=== PATIENT | male | born 1960 | race Caucasian/White ===

== ENCOUNTER 2020-06-07 11:22 | Outpatient (REF) | payer OTHER, SELFPAY ==
[2020-06-07 11:50] LABS: MANUAL DIFF FLAG NO
[2020-06-07 11:54] LABS: Basophils Percent Auto 0.5 % (0-2); Eosinophils Percent Auto 0.3 % (0-4); Hematocrit 48.4 % (42-52); Hemoglobin 16.3 g/dl (14.0-18.0); Imm Gran Abs Auto 0.02 X10*3/uL (0.00-0.03); Imm Gran Pct Auto 0.3 % (0.0-0.4); Lymphocytes Absolute Auto 2.1 X10*3/uL (1.2-4.9); Lymphocytes Percent Auto 34.2 % (20-40); Mean Corpuscular HGB Conc 33.7 g/dl (31.0-36.0); Mean Corpuscular Hemoglobin 30.5 pg (27.0-33.0); Mean Corpuscular Volume 90.6 fL (80-98); Mean Platelet Volume 10.3 fL (9.4-12.4); Monocytes Absolute Auto 0.5 X10*3/uL (0.1-1.2); Monocytes Percent Auto 7.4 % (2-11); Neutrophils Absolute Auto 3.5 X10*3/uL (2.0-8.3); Neutrophils Percent Auto 57.3 % (45-73); Platelet Count 179 X10*3/uL (160-400); Red Blood Count 5.34 X10*6/uL (4.60-5.80); Red Cell Distribution Width 11.9 % (11.0-16.0); White Blood Count 6.1 X10*3/uL (4.8-10.8)
[2020-06-07 12:18] LABS: Glucose Urine UA NEG (NEG); Leukocyte Esterase Urine NEG (NEG); Nitrite Urine NEG (NEG); Specific Gravity - Urine 1.025 (1.005-1.025); Urine Blood NEG (NEG); Urine Ketones NEG (NEG); Urine Protein TRACE MG/DL (NEG-TRACE)
[2020-06-07 12:19] LABS: Appearance Urine CLEAR; Color Urine YELLOW
[2020-06-07 12:24] LABS: RBC Urine 0 /HPF (0); Squamous Epithelial Cell Urine 1+ /LPF; WBC Urine 0 /HPF (0-4)
[2020-06-07 12:28] LABS: Alanine Aminotransferase 57 U/L (0-40); Albumin Level 4.6 g/dL (3.5-5.0); Alkaline Phosphatase 61 U/L (39-117); Anion Gap 11 (12-20); Aspartate Amino Transferase 32 U/L (5-37); Bilirubin Total 0.9 mg/dL (0.0-1.0); Blood Urea Nitrogen 24 mg/dL (9-16); Calcium 9.4 mg/dL (8.4-10.2); Carbon Dioxide 30 mmol/L (22-29); Chloride 105 mmol/L (96-108); Cholesterol 189 mg/dL; Estimated Glomerular Filt Rate > 60; Glucose Random 89 mg/dL (60-115); HDL Cholesterol 57 mg/dL; LDL Cholesterol Calculated 117 mg/dl; Potassium 5.2 mmol/l (3.3-5.1); Sodium 141 mmol/L (135-145); Total Protein 7.6 g/dL (6.5-8.0); Triglycerides 75 mg/dL
[2020-06-07 12:30] LABS: Estimated Average Glucose 100 mg/dL; Hemoglobin A1c % 5.1 %
[2020-06-07 12:49] LABS: Free T4 (Free Thyroxine) 1.08 ng/dL (0.71-1.85); Prostate Specific Antigen Scr 1.77 ng/mL (<0.05-4.0); Thyroid Stimulating Hormone 0.45 uIU/mL (0.32-4.0)
[2020-06-07 13:06] LABS: Folate 11.9 ng/mL (> or = 4.0); Vitamin B12 530 pg/mL (200-900)
== END 2020-06-07 11:23 | disposition home or self-care (01) ==
LOC: HO.LAB 11:22
PROVIDERS: PCP Internal Medicine; Visit Provider Internal Medicine
DX: I47.1 Supraventricular tachycardia (principal); E78.00 Pure hypercholesterolemia, unspecified
CPT/HCPCS: 36415; 80053; 80061; 81001; 82607; 82746; 83036; 84153; 84439; 84443; 85025

== ENCOUNTER → 2021-03-15 10:14 | Outpatient (BNVA) | payer OTHER, SELFPAY | PROVIDERS: PCP Internal Medicine; Referring Provider Internal Medicine; Visit Provider Internal Medicine Cardiovascular Disease | DX: R00.2 Palpitations (principal) | CPT/HCPCS: 93005; 99212 ==

== ENCOUNTER 2021-05-29 14:04 | Outpatient (REF) | payer OTHER, SELFPAY ==
[2021-05-29 14:31] LABS: MANUAL DIFF FLAG NO
[2021-05-29 15:16] LABS: Basophils Percent Auto 0.5 % (0-2); Eosinophils Absolute Auto 0.1 X10*3/uL (0.0-0.4); Eosinophils Percent Auto 0.9 % (0-4); Hematocrit 48.2 % (42.0-52.0); Hemoglobin 16.3 g/dl (14.0-18.0); Imm Gran Abs Auto 0.02 X10*3/uL (0.00-0.03); Imm Gran Pct Auto 0.3 % (0.0-0.4); Lymphocytes Absolute Auto 2.2 X10*3/uL (1.2-4.9); Lymphocytes Percent Auto 34.2 % (20-40); Mean Corpuscular HGB Conc 33.8 g/dl (31.0-36.0); Mean Corpuscular Hemoglobin 30.4 pg (27.0-33.0); Mean Corpuscular Volume 89.8 fL (80.0-98.0); Mean Platelet Volume 10.5 fL (9.4-12.4); Monocytes Absolute Auto 0.4 X10*3/uL (0.1-1.2); Monocytes Percent Auto 6.8 % (2-11); Neutrophils Absolute Auto 3.7 x10*3/uL (2.0-8.3); Neutrophils Percent Auto 57.3 % (45-73); Platelet Count 192 X10*3/uL (160-400); Red Blood Count 5.37 X10*6/uL (4.60-5.80); Red Cell Distribution Width 11.8 % (11.0-16.0); White Blood Count 6.5 X10*3/uL (4.8-10.8)
[2021-05-29 15:39] LABS: Alanine Aminotransferase 32 U/L (0-40); Albumin Level 4.4 g/dL (3.5-5.0); Alkaline Phosphatase 67 U/L (39-117); Anion Gap 13 (12-20); Aspartate Amino Transferase 22 U/L (5-37); Bilirubin Total 0.7 mg/dL (0.0-1.0); Blood Urea Nitrogen 19 mg/dL (9-16); Calcium 9.5 mg/dL (8.4-10.2); Carbon Dioxide 26 mmol/L (22-29); Chloride 106 mmol/L (96-108); Cholesterol 163 mg/dL; Estimated Glomerular Filt Rate > 60; Glucose Random 78 mg/dL (60-115); HDL Cholesterol 47 mg/dL; LDL Cholesterol Calculated 100 mg/dl; Potassium 4.4 mmol/L (3.3-5.1); Sodium 141 mmol/L (135-145); Total Protein 7.3 g/dL (6.5-8.0); Triglycerides 81 mg/dL
[2021-05-29 16:02] LABS: Free T4 (Free Thyroxine) 1.23 ng/dL (0.71-1.85); Prostate Specific Antigen Scr 2.78 ng/mL (<0.05-4.0); Thyroid Stimulating Hormone 0.55 uIU/mL (0.32-4.0)
[2021-05-29 16:13] LABS: Folate 13.6 ng/mL (> or = 4.0); Vitamin B12 422 pg/mL (200-900)
== END 2021-05-29 14:05 | disposition home or self-care (01) ==
LOC: HO.LAB 14:04
PROVIDERS: PCP Internal Medicine; Visit Provider Internal Medicine
DX: E78.00 Pure hypercholesterolemia, unspecified (principal)
CPT/HCPCS: 36415; 80053; 80061; 82607; 82746; 84153; 84439; 84443; 85025

== ENCOUNTER 2021-06-18 11:15 | Day surgery (SDC) | payer OTHER, SELFPAY ==
[2021-06-12 12:56] VITALS: BMI 29.7
--- NOTE | 2021-06-15 08:44 | HO.ANESPROP2 ---
Documented by User: Supriya Diaz NP 06/15/21 08:48 HPI - Anesthesia Eval Consult details Narrative: 60yo M Upper Endoscopy Follows cardiol yearly for palps - likely PVCs per Dr Fernando 03/2021 visit. No further work up. [facility] Active Problems Active Problems: All Active Problems (Updated 06/12/21 @ 12:48 by Emeli Daniel RN) Annual physical exam (Acute) SVT (supraventricular tachycardia) (Acute) Knee pain, left (Acute) Lip lesion (Acute) Palpitations (Acute) Annual physical exam (Acute) Overweight (Acute) Obesity (BMI 30-39.9) (Acute) Hypercholesterolemia (Acute) Anxiety (Acute) GERD (gastroesophageal reflux disease) (Acute) Barretts esophagus (Acute) Past Medical History Medical History Anxiety Barretts esophagus GERD (gastroesophageal reflux disease) Hypercholesterolemia Obesity (BMI 30-39.9) Palpitations Family History Family History Father No problems noted. Mother Colon cancer Sister Leukemia Brother Stomach cancer Surgical History Surgical History History of arthroscopy of left knee History of esophagogastroduodenoscopy (EGD) History of eye surgery History of umbilical hernia repair Hx of colonoscopy Social History Social History Housing: House Alcohol intake: current Patient Tobacco Use Status: Never used Tobacco e-Cigarette/Vaping Use: Never Used Second Hand Smoke Exposure: No Are you DNR?: No Advance Directives: No Advance Directives Information Provided: No Advance Directives on File: No Current occupational status: employed Meds Allergies Allergy/AdvReac Type Severity Reaction Status Date / Time No Known Allergies Allergy Verified 06/12/21 12:49 Home Medications Medication Instructions Recorded Confirmed Last Taken Type cholecalciferol (vitamin D3) 25 25 mcg PO DAILY 06/05/20 06/12/21 Unknown History mcg (1,000 unit) capsule omeprazole 20 mg capsule,delayed 20 mg PO BID cap 06/06/21 06/18/21 06/18/21 07:30 History release Exam Exam Date and Time: June 15, 2021 0844 Height,Weight and Vital Signs: Height 6 ft Weight 99.337 kg Pertinent Lab Results Pertinent Lab Results: Laboratory Tests 05/29/21 05/29/21 14:29 14:29 WBC 6.5 Hgb 16.3 Hct 48.2 Plt Count 192 Sodium 141 Potassium 4.4 Chloride 106 Carbon Dioxide 26 BUN 19 H Creatinine 1.07 Narrative Narrative: EKG 03/2021 normal sinus rhythm with incomplete right bundle-branch block with left axis deviation with isolated Q-waves in lead 3 due to body habitus Assessment and Plan Assessment Anesthesia Assessment: Chart Reviewed Documented by User: Jessica Garcia MD 06/18/21 12:55 PMFSH Past Medical History Medical History Anxiety Barretts esophagus GERD (gastroesophageal reflux disease) Hypercholesterolemia Obesity (BMI 30-39.9) Palpitations Family History Family History Father No problems noted. Mother Colon cancer Sister Leukemia Brother Stomach cancer Family history of problems with anesthesia: No Surgical History Surgical History History of arthroscopy of left knee History of esophagogastroduodenoscopy (EGD) History of eye surgery History of umbilical hernia repair Hx of colonoscopy History of Problems with Anesthesia: No Social History Social History Housing: House Alcohol intake: current Patient Tobacco Use Status: Never used Tobacco e-Cigarette/Vaping Use: Never Used Second Hand Smoke Exposure: No Are you DNR?: No Advance Directives: No Advance Directives Information Provided: No Advance Directives on File: No Current occupational status: employed Meds Allergies Allergy/AdvReac Type Severity Reaction Status Date / Time No Known Allergies Allergy Verified 06/12/21 12:49 Home Medications Medication Instructions Recorded Confirmed Last Taken Type cholecalciferol (vitamin D3) 25 25 mcg PO DAILY 06/05/20 06/12/21 Unknown History mcg (1,000 unit) capsule omeprazole 20 mg capsule,delayed 20 mg PO BID cap 06/06/21 06/18/21 06/18/21 07:30 History release Exam Height,Weight and Vital Signs: Height 6 ft Weight 99.337 kg Vital Signs Temp Pulse Resp BP Pulse Ox 06/18/21 11:50 97.6 F 62 16 118/85 97 Airway Mallampati Class: I TM Dist: >3cm Neck ROM: Full Loose/Missing/Broken Teeth: No Heart: RRR Lungs: CTAB Assessment and Plan Assessment Anesthesia Assessment: Anesthesia Plan Discussed Final Anesthetic Review Family History of Problems with Anesthesia: No History of Problems with Anesthesia: No NPO: Yes ASA Class: II Final Preanesthetic Review: No Changes in Pt Med Stat, Meds/Allgs Chart Reviewed, Consent Obtained/Reviewed and Anes Risks/Benef Reviewed Patient Risk: Low Procedure Risk: Low Assessment/Block/Sedation in SS: Assess/Block/Sedation-SS Anesthetic Plan Anesthetic Plan: MAC: Disposition: Standard PACU
[2021-06-18 11:50] VITALS: BP 118/85; PULSE 62; RESP 16; TEMP 36.4; O2SAT 97
[2021-06-18] MEDS: Lactated Ringers 1,000 ML 100 ML IVCONT (11:53)
[2021-06-18 13:37] VITALS: BP 101/64; PULSE 54; RESP 16; TEMP 36.4; O2SAT 96
--- NOTE | 2021-06-18 13:38 | PM.OP ---
Brief Operative Note Date of Service: 06/18/21 Pre-op diagnosis: GERD, Lo's Post-op diagnosis: other (Same, Hiatal hernia) Procedure: EGD with biopsies Surgeon: Josué Borges Anesthesia: MAC Was an Publisher Assistant used for this Procedure?: No Estimated blood loss (mL): 2.0 Pathology: other (A. EG Junction at 38cm) Condition: stable Disposition: PACU
[2021-06-18 13:59] VITALS: BP 104/68; PULSE 50; RESP 16; TEMP 36.4; O2SAT 96
--- NOTE | 2021-06-18 14:58 | OP_ITS ---
SURGEON: Josué Borges MD INDICATIONS: The patient presents for followup of gastroesophageal reflux, Lo's esophagus, and some increasing indigestion. Full consent has been obtained from him for this, including risks of bleeding and perforation. PREOPERATIVE DIAGNOSIS: POSTOPERATIVE DIAGNOSIS: PROCEDURE PERFORMED: Esophagogastroduodenoscopy with biopsies. ESTIMATED BLOOD LOSS: COMPLICATIONS: ANESTHESIA: Monitored anesthesia care. ASSISTANTS: SPECIMENS: PREOPERATIVE DIAGNOSES: Gastroesophageal reflux, Lo's esophagus, and increasing indigestion. POSTOPERATIVE DIAGNOSES: Gastroesophageal reflux, Lo's esophagus, and increasing indigestion, hiatal hernia. DESCRIPTION OF PROCEDURE: The patient was placed in left lateral decubitus position. The Olympus video gastroscope was passed in the posterior oropharynx and upper esophagus under direct vision. The scope was passed slowly into the distal esophagus. The gastroesophageal junction appeared at 38 cm. This area was notable for some small, less than 1 cm areas of irregularity consistent with Lo's mucosa. There was no esophagitis, ulceration, nor mass. The scope entered into the stomach. There was a small hiatal hernia. The scope was advanced to pylorus and the duodenum was cannulated to the descending portion. The duodenum including the bulb appeared normal without mass or ulceration. Scope was withdrawn back into the stomach. The gastric antrum and body appeared normal with good peristalsis. The scope was retroflexed visualizing the proximal stomach carefully which appeared normal, without any sign of mass or ulceration. Scope was straightened out and withdrawn back to the esophagus. Biopsies were obtained at the EG junction at 38 cm in the area of probable Lo's mucosa. Proximal to this, the esophageal mucosa appeared normal. The scope was withdrawn from the patient. He tolerated the procedure well and was returned to recovery area in stable condition. IMPRESSION: 1. Hiatal hernia. 2. History of Lo's esophagus. PLAN: The results of biopsies will be checked. He does report that he has been using omeprazole 20 mg twice a day fairly regularly and this has been working better for him. He is scheduled for an abdominal ultrasound later this month to rule out any symptomatic gallstones or any other issues that would be causing his increasing upper GI complaints. Depending upon those results and his clinical course, we may need to consider hiatal hernia surgery. If that is the case, he would need esophageal motility studies and pH studies. He will be due for followup colonoscopy in 2022, and I would recommend a followup endoscopy in 3 years as long as there is no dysplasia on today's biopsies. He will be given a followup appointment to see me as well. MD MAYTE Lozano/TAMANNA / [id number]
== END 2021-06-18 14:41 | disposition home or self-care (01) ==
PROVIDERS: PCP Internal Medicine; Visit Provider Internal Medicine
PROC: 0DJ08ZZ Inspection of Upper Intestinal Tract, Via Natural or Artificial Opening Endoscopic (ICD-10-PCS; CPT 43235; principal; 2021-06-18 12:30)
DX: K22.70 Barrett's esophagus without dysplasia (principal); K21.9 Gastro-esophageal reflux disease without esophagitis; K44.9 Diaphragmatic hernia without obstruction or gangrene; K30 Functional dyspepsia; Z80.0 Family history of malignant neoplasm of digestive organs; E78.5 Hyperlipidemia, unspecified; Z79.899 Other long term (current) drug therapy
CPT/HCPCS: 43239; 88305; J2405

== ENCOUNTER 2021-06-21 10:28 | Outpatient (REF) | payer OTHER, SELFPAY ==
--- NOTE | ~2021-06-21 | US_ITS ---
EXAMINATION: US ABDOMEN COMPLETE CLINICAL INFORMATION: Abdominal discomfort, epigastric. COMPARISON: Ultrasound abdomen 10/29/2011. TECHNIQUE: Real-time imaging of the abdominal viscera. FINDINGS: PANCREAS: The pancreatic head and body were unremarkable. The tail region was obscured by bowel gas. ABDOMINAL AORTA: The proximal, mid, and distal segments are normal in caliber. INFERIOR VENA CAVA: Visualized portions are normal. LIVER: The liver is normal in size. The liver contour is normal. Parenchymal echogenicity is normal. There is a tiny hyperechoic mass in the right lower lobe measuring 0.7 x 0.5 x 0.6 cm. No abnormal Doppler signal within this lesion. There is no intrahepatic biliary duct dilatation seen. GALLBLADDER: Normal. The gallbladder is physiologically distended without evidence of stones, sludge, polyps, wall thickening or pericholecystic fluid. COMMON BILE DUCT: Normal in caliber measuring 0.4 cm in diameter. RIGHT KIDNEY: Normal. No hydronephrosis. No renal calculi or focal parenchymal lesions. The kidney measures 10.3 cm in maximum dimension. LEFT KIDNEY: Normal. No hydronephrosis. No renal calculi or focal parenchymal lesions. The kidney measures 12.0 cm in maximum dimension. SPLEEN: Normal. The spleen measures 12.7 cm in maximum dimension. FREE FLUID: None. US/US abdomen complete IMPRESSION: 1. No acute sonographic findings within the abdomen. 2. Subcentimeter hyperechoic mass within the right lobe of the liver, nonspecific. Statistically this most likely represent a small hemangioma but the imaging is nondiagnostic. Due to the small size, diagnostic imaging will be limited. If clinically appropriate, consider sonographic follow-up, reserving liver MRI for problem solving.
== END 2021-06-21 10:29 | disposition home or self-care (01) ==
LOC: HO.US 10:28
PROVIDERS: PCP Internal Medicine; Visit Provider Internal Medicine
DX: R10.13 Epigastric pain (principal)
CPT/HCPCS: 76700

== ENCOUNTER → 2021-09-21 08:01 | Outpatient (REF) | payer OTHER, SELFPAY ==
--- NOTE | 2021-09-21 08:06 | CA_ITS ---
Acquisition Time: 2021-09-21 08:16:04 Total Exercise Time: 00:10:00 Test Indications: SVT Medications: SEE CHART Protocol: JAMES Max HR: 169 BPM 104% of Pred: 161 BPM Max BP: 138/070 mmHG Max Work Load: 11.8 METS Exercise stress test with exercise 10 min of James protocol, achieving 100% MPHR, 11.7 METs, with mild sob, no chest discomfort, with isolated PAC and PVCs, with normotensive response to exercise, without EKG changes meeting criteria for ischemia. Test reviewed with Dr Goff. Referred By: Sajan Fernando Overread By: SHAHLA HAWKINS
== END ==
LOC: HO.CARD 08:01
PROVIDERS: Visit Provider Internal Medicine Cardiovascular Disease
DX: Z01.818 Encounter for other preprocedural examination (principal); I47.1 Supraventricular tachycardia
CPT/HCPCS: 93017

== ENCOUNTER 2022-01-09 07:55 | Outpatient (REF) | payer OTHER, SELFPAY ==
--- NOTE | ~2022-01-09 | US_ITS ---
EXAMINATION: US ABDOMEN COMPLETE CLINICAL INFORMATION: Abnormal liver ultrasound. COMPARISON: Ultrasound abdomen 06/21/2021 and 10/29/2011. TECHNIQUE: Real-time imaging of the abdominal viscera. FINDINGS: PANCREAS: Normal. ABDOMINAL AORTA: The proximal, mid, and distal segments are normal in caliber. INFERIOR VENA CAVA: Visualized portions are normal. LIVER: The liver is normal in size. The liver contour is normal. There is a focal area of increased echogenicity right lower lobe measuring 0.5 x 0.5 x 0.5 cm likely a small hemangioma. The left lower lobe is not seen No focal hepatic lesion. There is no intrahepatic biliary duct dilatation seen. GALLBLADDER: Normal. The gallbladder is physiologically distended without evidence of stones, sludge, polyps, wall thickening or pericholecystic fluid. COMMON BILE DUCT: Normal in caliber measuring 0.3 cm in diameter. RIGHT KIDNEY: Normal. No hydronephrosis. No renal calculi or focal parenchymal lesions. The kidney measures 10.8 cm in maximum dimension. LEFT KIDNEY: Normal. No hydronephrosis. No renal calculi or focal parenchymal lesions. The kidney measures 10.8 cm in maximum dimension. SPLEEN: Normal. The spleen measures 11.3 cm in maximum dimension. FREE FLUID: None. US/US abdomen complete IMPRESSION: Suspect small right hepatic lobe hemangioma. Rest of the abdominal ultrasound is unremarkable.
== END 2022-01-09 07:56 | disposition home or self-care (01) ==
LOC: HO.US 07:55
PROVIDERS: PCP Internal Medicine; Visit Provider Internal Medicine
DX: R93.2 Abnormal findings on diagnostic imaging of liver and biliary tract (principal)
CPT/HCPCS: 76700

== ENCOUNTER → 2022-01-14 11:26 | Outpatient (BNVA) | payer OTHER, SELFPAY | PROVIDERS: PCP Internal Medicine; Visit Provider Internal Medicine Cardiovascular Disease | DX: I48.19 Other persistent atrial fibrillation (principal) | CPT/HCPCS: 93005 ==

== ENCOUNTER 2022-01-14 15:35 | Outpatient (REF) | payer OTHER, SELFPAY ==
--- NOTE | ~2022-01-14 | CT_ITS ---
EXAMINATION: CT ANGIOGRAM OF THE CHEST WITH AND WITHOUT CONTRAST (CT PULMONARY ANGIOGRAM FOR PE) CLINICAL INFORMATION: Reason for Exam I48.19 - Other persistent atrial fibrillation COMPARISON: None TECHNIQUE: Prior to contrast administration, noncontrast localization images were obtained. Subsequently, multidetector volumetric imaging was performed from the thoracic inlet to below the diaphragms following the administration of 80 mL Omnipaque 350 intravenous contrast. No contrast reaction reported Sagittal, coronal, and MIP oblique sagittal reformatted images were obtained on the CT workstation, uploaded to PACS, and reviewed. This CT examination was performed using dose optimization techniques as appropriate, variously including the following: *Automated exposure control *Adjustment of mA and/or kV according to patient size (this includes techniques or standardized protocols for targeted exams where dose is matched to indication/reason for exam; i.e. extremities or head) *Use of iterative reconstruction technique Total exam dose-length product 156 mGy-cm FINDINGS: QUALITY OF STUDY/CONTRAST BOLUS: Satisfactory. PULMONARY ARTERIES: Multiple bilateral pulmonary emboli. Large emboli in the segmental and subsegmental branches of the right pulmonary artery. Smaller volume of emboli present on the left and subsegmental branches of left lower lobe and left upper lobe. THORACIC AORTA: No aneurysm or dissection. LUNG: No focal consolidation, nodules or masses. PLEURA: No pleural effusion or pneumothorax. MEDIASTINUM: Normal heart size. No pericardial effusion. No hilar or mediastinal lymphadenopathy. No evidence of septal bowing or right heart strain. CHEST WALL/AXILLA: No axillary or internal mammary lymphadenopathy. OSSEOUS STRUCTURES: No acute or suspicious osseous abnormality. Multilevel degenerative spondylosis spine. UPPER ABDOMEN: Unremarkable. No reflux of contrast into the hepatic veins to suggest elevated right heart pressures. CT/CT angio chest PE protocol IMPRESSION: Bilateral pulmonary emboli. VTE: positive This critical result was discussed with Dr. Stratton on 01/14/2022, 5:50 PM and it was ascertained that the content and urgency of the report was understood at the time of direct communication.
[2022-01-14 16:59] LABS: Anion Gap 11 (12-20); Blood Urea Nitrogen 23 mg/dL (9-16); Calcium 9.2 mg/dL (8.4-10.2); Carbon Dioxide 26 mmol/L (22-29); Chloride 109 mmol/L (96-108); Estimated Glomerular Filt Rate 55; Glucose Random 80 mg/dL (60-115); Potassium 4.3 mmol/L (3.3-5.1); Sodium 142 mmol/L (135-145)
== END 2022-01-14 15:36 | disposition home or self-care (01) ==
LOC: HO.CT 15:35
PROVIDERS: PCP Internal Medicine; Visit Provider Internal Medicine Cardiovascular Disease
DX: I48.91 Unspecified atrial fibrillation (principal)
CPT/HCPCS: 36415; 71275; 80048

== ENCOUNTER 2022-01-14 17:44 | Inpatient (IN) | payer OTHER, SELFPAY ==
--- NOTE | ~2022-01-14 | US_ITS ---
EXAMINATION: US VENOUS ULTRASOUND WITH DOPPLER LOWER EXTREMITY, LEFT CLINICAL INFORMATION: History of DVT with lower extremity swelling and bilateral pulmonary emboli seen on CT angiography today COMPARISON: None TECHNIQUE: Ultrasound of the deep veins is performed from the hip to the calf with compression sonography and color and pulse Doppler assessment. Spectral analysis with color-flow imaging is performed. FINDINGS: There is normal venous compression and respiratory variation and augmented flow. The visualized common femoral vein, superficial femoral vein, profunda femoral vein, popliteal vein, and the trifurcation region shows no evidence of deep venous thrombosis. There is no significant popliteal fossa cyst. If the patient's symptoms persist, followup ultrasound in 5 days 7 days might be of value to exclude proximal propagation from a non-visualized calf vein. US/US venous duplex LE IMPRESSION: No DVT demonstrated in the left lower extremity.
[2022-01-14 17:51] VITALS: BP 102/82; PULSE 162; RESP 12; TEMP 36.8; O2SAT 96; BMI 29.1
--- NOTE | 2022-01-14 17:53 | ECG_ITS ---
Test Reason : afib Blood Pressure : / mmHG Vent. Rate : 099 BPM Atrial Rate : 000 BPM P-R Int : 000 ms QRS Dur : 094 ms QT Int : 354 ms P-R-T Axes : 000 042 -02 degrees QTc Int : 454 ms Atrial fibrillation Cannot rule out Inferior infarct , age undetermined Abnormal ECG No previous ECGs available Referred By: Kole Ji Electronically Signed By:RYNE SPEARS MD
[2022-01-14 17:57] VITALS: BP 109/90; PULSE 167; RESP 10; TEMP 36.8; O2SAT 97
[2022-01-14] MEDS: dilTIAZem HCL 50 MG/10 ML VIAL 20 MG IVPUSH (18:03)
[2022-01-14] MEDS: 0.9 % Sodium Chloride 1,000 ML 999 ML IV (18:07)
--- NOTE | 2022-01-14 18:12 | ED_ITS ---
HPI - Arrhythmia/Palpitations General Chief Complaint: General Medical Stated Complaint: confirm Cardiology Time Seen by Provider: 01/14/22 17:52 Source: patient Mode of arrival: ambulatory Limitations: no limitations History of Present Illness HPI narrative: Patient's history of anxiety high cholesterol status post left knee replacement 11/09/2021 on aspirin been having episodes of palpitations for last 1 year was seen by cardiology at that time diagnosed with PVCs after surgery patient been having near-syncope episode with lightheadedness feeling multiple times with tachycardia and for last 48 hour notice his heart rate beating fast in 160s seen by reporting coordinator EKG showed atrial fibrillation and 10 the patient here patient had a CTA chest also which showed bilateral PE. Patient denies any significant pain in the left leg but has swelling of the calf area patient does have exertional shortness of breath for last few days. Related Data Home Medications Medication Instructions Recorded Confirmed cholecalciferol (vitamin D3) 25 25 mcg PO BEDTIME 06/05/20 01/14/22 mcg (1,000 unit) capsule omeprazole 20 mg capsule,delayed 20 mg PO DAILY 01/14/22 01/14/22 release simvastatin 20 mg tablet 20 mg PO BEDTIME 01/14/22 01/14/22 Previous Rx's Medication Instructions Recorded metoprolol succinate 25 mg 25 mg PO DAILY #30 tabs 01/14/22 tablet,extended release 24 hr (Toprol XL) rivaroxaban 20 mg tablet (Xarelto) 20 mg PO QPM #30 tabs 01/14/22 Allergies Allergy/AdvReac Type Severity Reaction Status Date / Time No Known Allergies Allergy Verified 01/14/22 17:51 Review of Systems Review of Systems: Yes all other systems are reviewed and are negative [facility] Past Medical History Medical History Anxiety Barretts esophagus GERD (gastroesophageal reflux disease) Hypercholesterolemia Obesity (BMI 30-39.9) Palpitations Surgical History History of arthroscopy of left knee History of esophagogastroduodenoscopy (EGD) History of eye surgery History of knee replacement procedure of left knee History of umbilical hernia repair Hx of colonoscopy Family History Family History Father No problems noted. Mother Colon cancer Sister Leukemia Brother Stomach cancer Social History Social History Housing: House Alcohol intake: current Alcohol intake frequency: a few times a month Alcohol type: wine Patient Tobacco Use Status: Never used Tobacco e-Cigarette/Vaping Use: Never Used Second Hand Smoke Exposure: No Use of substances other than those prescribed or required for medical reasons: No Advance Directives: No Advance Directives Information Provided: Yes Current occupational status: employed Physical Exam Vital Signs: Vital Signs: Last Vital Signs Temp 98.3 F 01/14/22 17:57 Pulse 90 01/14/22 21:26 Resp 24 H 01/14/22 21:26 BP 97/75 01/14/22 21:26 Pulse Ox 96 01/14/22 21:26 O2 Del Method 01/14/22 21:26 BMI result Body Mass Index 29.1 Appearance: Alert. Oriented X3. No acute distress. Eyes: No pyloric ENT: Pharynx normal. Oral Mucosa moist Neck: Normal inspection. Neck supple. CVS: Tachycardia irregular irregular no murmur rub or gallop. Pulses normal. Respiratory: No respiratory distress. Equal air entry bilateral, no wheezing/rales/rhonchi Abdomen: Soft and nontender. Bowel sounds are present, no mass palpable, no CVA tenderness Skin: Skin warm and dry. Normal skin color. Normal skin turgor. Extremities: No lower extremity edema. No calf tenderness left leg postop with swelling of the calf area without significant tenderness Neuro: Oriented X 3. No motor deficit. No sensory deficit.No cerebellar signs , cranial nerves II-XII intact MDM - Arrhythmia/Palpitations MDM Narrative Medical decision making narrative: [id number] patient with bilateral pulmonary emboli with atrial fibrillation with rapid RVR sent by reporting coordinator for rate control and admission. Venous Doppler negative for DVT in left leg, Patient started on Xarelto Cardizem drip heart rate is between 90 and 100 blood pressure stable still in AFib. Patient is saturating 99% at room air Differential Diagnosis Differential diagnosis: Likely artial fibrillation Medical Records Attestation: I reviewed the patient's medical records. Lab Data Attestation: I reviewed the patient's lab results. Result diagrams: 01/14/22 18:44 Labs: Lab Results 01/14/22 01/14/22 01/14/22 Range/Units 18:44 18:44 18:44 WBC 6.6 (4.8-10.8) X10*3/uL RBC 4.46 L (4.60-5.80) X10*6/uL Hgb 13.2 L (14.0-18.0) g/dl Hct 40.0 L (42.0-52.0) % MCV 89.7 (80.0-98.0) fL MCH 29.6 (27.0-33.0) pg MCHC 33.0 (31.0-36.0) g/dl RDW 12.2 (11.0-16.0) % Plt Count 177 (160-400) X10*3/uL MPV 10.4 (9.4-12.4) fL Immature Gran % (Auto) 0.3 (0.0-0.4) % Neut % (Auto) 51.3 (45-73) % Lymph % (Auto) 37.2 (20-40) % [place] % (Auto) 9.8 (2-11) % Eos % (Auto) 1.1 (0-4) % Baso % (Auto) 0.3 (0-2) % Lymph # (Auto) 2.4 (1.2-4.9) X10*3/uL [place] # (Auto) 0.6 (0.1-1.2) X10*3/uL Eos # (Auto) 0.1 (0.0-0.4) X10*3/uL Baso # (Auto) 0.0 (0.0-0.2) X10*3/uL Abs Immat Gran (auto) 0.02 (0.00-0.03) X10*3/uL Absolute Neuts (auto) 3.4 (2.0-8.3) x10*3/uL Absolute Nucleated RBC 0.000 (0.0-0.012) X10*3/uL Nucleated RBC % (auto) 0.0 (0.0-0.2) /100WBC PT 12.6 (10.0-13.1) SEC INR 1.1 (0.9-1.1) APTT 30.9 (24.1-38.0) SEC Troponin I High Sens 4.5 (<3.5-35.0) ng/L B-Natriuretic Peptide 457 H (<100) pg/mL COVID-19 (DRE) (Negative) COVID-19 Clin Com 01/14/22 Range/Units 18:44 WBC (4.8-10.8) X10*3/uL RBC (4.60-5.80) X10*6/uL Hgb (14.0-18.0) g/dl Hct (42.0-52.0) % MCV (80.0-98.0) fL MCH (27.0-33.0) pg MCHC (31.0-36.0) g/dl RDW (11.0-16.0) % Plt Count (160-400) X10*3/uL MPV (9.4-12.4) fL Immature Gran % (Auto) (0.0-0.4) % Neut % (Auto) (45-73) % Lymph % (Auto) (20-40) % [place] % (Auto) (2-11) % Eos % (Auto) (0-4) % Baso % (Auto) (0-2) % Lymph # (Auto) (1.2-4.9) X10*3/uL [place] # (Auto) (0.1-1.2) X10*3/uL Eos # (Auto) (0.0-0.4) X10*3/uL Baso # (Auto) (0.0-0.2) X10*3/uL Abs Immat Gran (auto) (0.00-0.03) X10*3/uL Absolute Neuts (auto) (2.0-8.3) x10*3/uL Absolute Nucleated RBC (0.0-0.012) X10*3/uL Nucleated RBC % (auto) (0.0-0.2) /100WBC PT (10.0-13.1) SEC INR (0.9-1.1) APTT (24.1-38.0) SEC Troponin I High Sens (<3.5-35.0) ng/L B-Natriuretic Peptide (<100) pg/mL COVID-19 (DRE) Negative (Negative) COVID-19 Clin Com See Note ECG Data Attestation: I personally reviewed and interpreted this ECG as follows: Interpretation: Atrial fibrillation with heart rate 99 beats per minute normal axis no acute ischemic changes no acute ischemia Critical Care Time Critical Care Time Critical Care Time: Yes Total Critical Care Time: 55 Attestation: I spent 55 minutes of critical care, with interventions, assessments, speaking to patient, consultants, and family. Discharge Plan Discharge Clinical Impression: Atrial fibrillation with rapid ventricular response, Pulmonary embolism Patient Disposition: Admitted As Inpatient
[2022-01-14 18:49] LABS: MANUAL DIFF FLAG NO
[2022-01-14 18:52] LABS: Basophils Percent Auto 0.3 % (0-2); Eosinophils Absolute Auto 0.1 X10*3/uL (0.0-0.4); Eosinophils Percent Auto 1.1 % (0-4); Hemoglobin 13.2 g/dl (14.0-18.0); Imm Gran Abs Auto 0.02 X10*3/uL (0.00-0.03); Imm Gran Pct Auto 0.3 % (0.0-0.4); Lymphocytes Absolute Auto 2.4 X10*3/uL (1.2-4.9); Lymphocytes Percent Auto 37.2 % (20-40); Mean Corpuscular Hemoglobin 29.6 pg (27.0-33.0); Mean Corpuscular Volume 89.7 fL (80.0-98.0); Mean Platelet Volume 10.4 fL (9.4-12.4); Monocytes Absolute Auto 0.6 X10*3/uL (0.1-1.2); Monocytes Percent Auto 9.8 % (2-11); Neutrophils Absolute Auto 3.4 x10*3/uL (2.0-8.3); Neutrophils Percent Auto 51.3 % (45-73); Platelet Count 177 X10*3/uL (160-400); Red Blood Count 4.46 X10*6/uL (4.60-5.80); Red Cell Distribution Width 12.2 % (11.0-16.0); White Blood Count 6.6 X10*3/uL (4.8-10.8)
--- NOTE | 2022-01-14 18:58 | PC.NURSE ---
pt a&ox3, heart rate between 96-140, other vss, pt denies any pain at this time. medicated per provider order.
[2022-01-14] MEDS: Heparin Sodium,Porcine 5,000 UNIT/ML VIAL 5000 UNIT IVPUSH (18:59)
[2022-01-14 19:00] LABS: INTERNATIONAL NORM RATIO 1.1 (0.9-1.1); Prothrombin Time 12.6 SEC (10.0-13.1)
[2022-01-14 19:02] VITALS: BP 107/67; PULSE 103; RESP 11; O2SAT 99
[2022-01-14 19:02] LABS: Partial Thromboplastin Time 30.9 SEC (24.1-38.0)
[2022-01-14 19:09] LABS: B Type Natriuretic Peptide 457 pg/mL (<100); Troponin-I High Sensitivity 4.5 ng/L (<3.5-35.0)
[2022-01-14 19:10] LABS: COVID-19 Test Negative (Negative); IDNOW Serial# 16C4AD1C
[2022-01-14] MEDS: Metoprolol Tartrate 5 MG/5 ML VIAL IVPUSH (19:39)
[2022-01-14 19:42] VITALS: BP 95/67; PULSE 106; RESP 12; O2SAT 99
--- NOTE | 2022-01-14 19:42 | PC.NURSE ---
medicated per provider order.
[2022-01-14] MEDS: dilTIAZem HCL 125 MG in 0.9 % Sodium Chloride 100 ML 10 MG IVCONT (20:20)
--- NOTE | 2022-01-14 20:21 | PC.NURSE ---
pt a&ox3, HR 96-136 on monitor, other vss . cardizem IV started at 10mg/hr per provider order
--- NOTE | 2022-01-14 20:35 | PHA.MEDREC ---
Pharmacy Consult ? Medication Reconciliation Pharmacy has completed the medication reconciliation. Patient reported all medications. Patient has not started the Xarleto or metoprolol as they were just prescribed therefore I left the medications unconfirmed. Klaudia Zaldivar, PharmD
[2022-01-14 20:41] VITALS: BP 103/64; PULSE 121; RESP 13
--- NOTE | 2022-01-14 20:43 | PC.NURSE ---
pt a&ox3, HR continues to fluctuate between 99-136, cardizem drip increased to 15mg/hr.
[2022-01-14] MEDS: Rivaroxaban 15 MG TABLET PO (21:24)
[2022-01-14 21:26] VITALS: BP 97/75; PULSE 90; RESP 24; O2SAT 96
--- NOTE | 2022-01-14 21:26 | PC.NURSE ---
medicated per provider order.
--- NOTE | 2022-01-14 21:31 | P.HPHOSP_ITS ---
History of Present Illness Date of Service: 01/14/22 Chief Complaint: palpitations this is a 61-year-old male with past medical history of Lo's esophagus, GERD, HLD, history of SVT who presents to the hospital after being found to have AFib at cardiology office. patient reports that he underwent knee surgery sometime in November, but for all of December he was not feeling too great. He reports several dizzy episodes that were similar to his episodes of SVT, he was also feeling on and off palpitations, lightheadedness, as well as feeling tired and fatigued. He reports that he was compliant with his anticoagulation of aspirin full dose twice a day and took that for 30 days post surgery. Patient has been active, reports that since Friday he then developed fluttering that was constant, lasting longer, associated with lightheadedness, feeling short of breath and having tightness in the chest with deep inspiration. He reports no swelling in his legs except for knee swelling at the site of surgery, no headache or change in vision, no abdominal pain nausea or vomiting, no diarrhea constipation, no urinary symptoms. he then made an appointment to see his marine habitat resource specialist, at the marine habitat resource specialist's office patient was found to have a heart rate of 159 and was found to be in AFib with RVR. Blood pressure was also low, therefore patient was sent to the ED. On his arrival to the ED heart rate was 167 blood pressure of 109/90. Patient also had a CT angiogram done by the marine habitat resource specialist with showed bilateral PE. Patient therefore will be admitted for further management. On arrival to the ED patient was found to have a WBC count of 6.6, hemoglobin of 13.2, BNP of 457,Troponin of 4.5. labs otherwise unremarkable Negative venous duplex of lower extremity EKG showed AFib with RVR patient started on Cardizem drip and will be admitted for further management Review of Systems Review of Systems: Yes all other systems are reviewed and are negative [facility] Medical History Anxiety Barretts esophagus GERD (gastroesophageal reflux disease) Hypercholesterolemia Obesity (BMI 30-39.9) Palpitations Family History Father No problems noted. Mother Colon cancer Sister Leukemia Brother Stomach cancer Surgical History History of arthroscopy of left knee History of esophagogastroduodenoscopy (EGD) History of eye surgery History of knee replacement procedure of left knee History of umbilical hernia repair Hx of colonoscopy Social History Housing: House Alcohol intake: current Alcohol intake frequency: a few times a month Alcohol type: wine Patient Tobacco Use Status: Never used Tobacco e-Cigarette/Vaping Use: Never Used Second Hand Smoke Exposure: No Use of substances other than those prescribed or required for medical reasons: No Advance Directives: No Advance Directives Information Provided: Yes Current occupational status: employed Meds Allergies Allergy/AdvReac Type Severity Reaction Status Date / Time No Known Allergies Allergy Verified 01/14/22 17:51 Active Medications: Current Medications Diltiazem HCl 125 mg/ Sodium (Chloride) 125 mls @ 0 mls/hr IVCONT .Q0M JARETH; Protocol Last Titration: 01/14/22 20:41 Dose: 15 mg/hr, 15 mls/hr Home Medications Medication Instructions Recorded Confirmed Last Taken Type cholecalciferol (vitamin D3) 25 25 mcg PO BEDTIME 06/05/20 01/14/22 01/13/22 History mcg (1,000 unit) capsule omeprazole 20 mg capsule,delayed 20 mg PO DAILY 01/14/22 01/14/22 01/14/22 Hist ory release simvastatin 20 mg tablet 20 mg PO BEDTIME 01/14/22 01/14/22 01/13/22 History Physical Exam Vital Signs and Narrative: Vital Signs: Last Vital Signs Temp 98.3 F 01/14/22 17:57 Pulse 121 H 01/14/22 20:41 Resp 13 01/14/22 20:41 BP 103/64 01/14/22 20:41 Pulse Ox 99 01/14/22 19:42 O2 Del Method 01/14/22 20:41 BMI result Body Mass Index 29.1 Const: General: cooperative and no acute distress Orientation/consciousness: patient oriented x3 Eyes: General: appearance normal, both eyes and all related structures Resp: Effort & Inspection: normal respiratory effort, able to speak in complete sentences and abnormal respiratory pattern Auscultation: clear to auscultation bilaterally Cardio: Other: tachycardic, regular rhythm GI: Palpation (GI): Soft to palpation Auscultation: normal bowel sounds Skin: General skin exam: no rashes or lesions noted Neuro: General: patient oriented x3 Cognition (Neuro): normal cognition Extrem: Other: well-healed surgical scar on the left knee, no erythema, no tenderness, no warmth General: Yes normal to inspection and Yes no pedal edema Results Labs CBC and Chem 7: 01/14/22 18:44 Labs: Laboratory Results - last 24 hr 01/14/22 01/14/22 01/14/22 18:44 18:44 18:44 MCV 89.7 MCH 29.6 MCHC 33.0 RDW 12.2 Plt Count 177 MPV 10.4 Immature Gran % (Auto) 0.3 Neut % (Auto) 51.3 Lymph % (Auto) 37.2 [place] % (Auto) 9.8 Eos % (Auto) 1.1 Baso % (Auto) 0.3 Lymph # (Auto) 2.4 [place] # (Auto) 0.6 Eos # (Auto) 0.1 Baso # (Auto) 0.0 Abs Immat Gran (auto) 0.02 Absolute Neuts (auto) 3.4 Absolute Nucleated RBC 0.000 Nucleated RBC % (auto) 0.0 PT 12.6 INR 1.1 APTT 30.9 Troponin I High Sens 4.5 B-Natriuretic Peptide 457 H COVID-19 (DRE) COVID-19 Clin Com 01/14/22 18:44 MCV MCH MCHC RDW Plt Count MPV Immature Gran % (Auto) Neut % (Auto) Lymph % (Auto) [place] % (Auto) Eos % (Auto) Baso % (Auto) Lymph # (Auto) [place] # (Auto) Eos # (Auto) Baso # (Auto) Abs Immat Gran (auto) Absolute Neuts (auto) Absolute Nucleated RBC Nucleated RBC % (auto) PT INR APTT Troponin I High Sens B-Natriuretic Peptide COVID-19 (DRE) Negative COVID-19 Clin Com See Note Imaging Radiologist's Impressions: Impressions Venous Duplex 01/14/22 18:21 IMPRESSION: No DVT demonstrated in the left lower extremity. Assessment and Plan (1) Atrial fibrillation with rapid ventricular response: Status: Acute (2) Pulmonary embolism: Status: Acute Plan 61-year-old male with past medical history of SVT, recent knee surgery presents to the hospital after being found with AFib and RVR as well as PE # AFib with RVR - likely precipitated by PE - CHADSCVASc score of 0 - given the [place] ointment PE patient will be onanticagulation - will start him on metoprolol 12.5 - echocardiogram - cardiology consulted # bilateral PE - likely provoked in the setting of recent knee surgery - patient will be placed on Xarelto # hyperlipidemia - continue statin # GERD/Lo's esophagus - continue omeprazole DVT prophylaxis: Xarelto Quality Stroke Does the patient have a stroke diagnosis?: No VTE Prior VTE?: No VTE Risk Level:: Medical - moderate - high VTE Device Contraindication: Treatment Not Indicated VTE Drug Contraindication: N/A - Med Ordered
[2022-01-15] VITALS (9 sets, daily range): BP systolic 93–119; BP diastolic 58–84; PULSE 78–99; RESP 16–18; TEMP 36.1–36.9; O2SAT 95–99
--- NOTE | 2022-01-15 02:00 | PC.NURSE ---
RN-RN report given.
[2022-01-15] MEDS: Metoprolol Tartrate 12.5 MG HALFTAB PO ×2 (02:12→07:47)
--- NOTE | 2022-01-15 02:13 | PC.NURSE ---
cardizem stopped, medicated per provider order.
[2022-01-15] MEDS: Omeprazole 20 MG CAPSULE.DR PO (05:26)
[2022-01-15 06:29] LABS: MANUAL DIFF FLAG NO
--- NOTE | 2022-01-15 07:00 | CA_ITS ---
Transthoracic Echocardiogram Patient (Last, First, Middle): Praful Morgan K Gender: Male Date of : 1960 Age: 61 Procedure Date: 01/15/2022 Procedure Type: Transthoracic Echocardiogram [place] [facility] [place] Height: 182.88 cm Weight: 97.52 kg BSA: 2.20 m2 Heart Rate: bpm BP: 95 / 63 mmHg It Data Architect: Referring MD: Javed Silverio MD Ambulatory Nurse: Sajan Fernando MD Symptoms: A fib w RVR, PE Study Quality: Adequate ECG Rhythm: Sinus Conclusions: - 1. Normal LV and RV size and systolic function with LVEF of 55-60% 2. Mildly dilated left atrium 3. Normal cardiac valvular Doppler 4. Normal RV systolic pressure 5. No pericardial effusion Findings Left Ventricle Normal left ventricular size, thickness, and systolic function. The visually estimated ejection fraction is between 55-60%. Diastolic function is indeterminate on the basis of available data. Right Ventricle Normal right ventricular cavity size and systolic function. Atria The left atrium is mildly dilated. There is no evidence of interatrial shunt. The right atrium was not well visualized. Aortic Valve Normal aortic valve structure and function. There is no aortic valve stenosis. There is no aortic valve regurgitation. Mitral Valve Normal mitral valve structure and function. There is trace mitral valve regurgitation. There is no mitral valve stenosis. Pulmonic Valve The pulmonic valve is likely normal. There is trace to mild pulmonic valve regurgitation. Tricuspid Valve Normal tricuspid valve structure. There is trace tricuspid valve regurgitation. The right ventricular systolic pressure is normal. Normal right atrial pressure. There is no evidence of pulmonary hypertension. Great Vessels All visible segments of the aorta are normal in size. The pulmonary artery was not well visualized. Venous The inferior vena cava is normal in size and collapses greater than 50% with inspiration. Pericardium/Pleural There is no evidence of pericardial effusion. Prior Study Comparison Changes noted compared to prior study dated: 12/09/2018. Patient in atrial fibrillation. Left atrium is mildly dilated Measurements 2D Linear Measurements IVSd: 1.05 0.6-0.9/0.6-1.0 cm LVIDd: 5.02 3.9-5.3/4.2-5.9 cm LVIDd Index: 2.28 2.4-3.2/2.2-3.1 cm/m2 LVIDs: 3.58 2.0-3.6 cm LVPWd: 0.91 0.7-1.1 cm Ao Root: 3.90 2.1-3.5 cm LA Diam: 4.40 2.7-3.8/3.0-4.0 cm LAIDs Index: 2.00 1.5-2.3 cm/m2 LV Mass: 332.22 67-162/88-224 g LV Mass Index: 151.01 43-95/49-115 g/m2 LVOT Diam: 2.70 3.0+(-)1.3 cm Mitral Valve MV Pk E: 0.83 MV Decel Time: 58.00 E'Lateral: 17.80 E'Medial: 10.90 E/E' Med: 7.60 E/E' Lat: 4.60 PHT: 17.00 MVA PHT: 12.94 Decel Power: 14.38 Aortic Valve AoV Pk Nikunj: 1.10 AoV Mn Nikunj: 0.75 AoV VTI: 0.21 AoV Pk Grad: 5.00 Aov Mn Grad: 3.00 ALEYDA Cont.VTI: 4.75 LVOT LVOT Pk Nikunj: 0.68 LVOT Mn Nikunj: 0.49 LVOT VTI: 0.17 LVOT Pk Grad: 2.00 LVOT Mn Grad: 1.00 LVOT Diam: 2.70 LVOT Area: 5.73 Diastolic Function MV Pk E: 0.83 E'Medial: 10.90 E/E' Med: 7.60 E' Laterial: 17.80 E/E' Lat: 4.60 Right Ventricle TAPSE (mm): 30.00 TVS' Nikunj: 11.00 Tricuspid Valve TR Pk Nikunj: 2.06 TR Pk Grad: 17.00 RA Press: 3.00 RVSP: 20.00 Great Vessels Aorta Ao Root-2D: 3.90 2.0-3.7 cm Ao Asc: 3.60 2.1-3.4 cm Pulmonary Valve PV Pk Nikunj: 0.88 Peak PV Grad: 3.00 Updated in Other Vendor System with Status of Final Sajan Fernando MD electronically signed on 01/15/2022 11:48:42 AM with status of Final
[2022-01-15 07:01] LABS: Anion Gap 11 (12-20); Blood Urea Nitrogen 16 mg/dL (9-16); Calcium 8.8 mg/dL (8.4-10.2); Carbon Dioxide 28 mmol/L (22-29); Chloride 108 mmol/L (96-108); Creatinine Clr Calc Pharmacy 79.5; Estimated Glomerular Filt Rate > 60; Glucose Random 88 mg/dL (60-115); Potassium 4.8 mmol/L (3.3-5.1); Sodium 142 mmol/L (135-145)
[2022-01-15 07:04] LABS: Basophils Percent Auto 0.3 % (0-2); Eosinophils Absolute Auto 0.1 X10*3/uL (0.0-0.4); Eosinophils Percent Auto 1.4 % (0-4); Hematocrit 41.2 % (42.0-52.0); Hemoglobin 13.4 g/dl (14.0-18.0); Imm Gran Abs Auto 0.02 X10*3/uL (0.00-0.03); Imm Gran Pct Auto 0.3 % (0.0-0.4); Lymphocytes Absolute Auto 2.2 X10*3/uL (1.2-4.9); Lymphocytes Percent Auto 35.5 % (20-40); Mean Corpuscular HGB Conc 32.5 g/dl (31.0-36.0); Mean Corpuscular Hemoglobin 29.6 pg (27.0-33.0); Mean Corpuscular Volume 91.2 fL (80.0-98.0); Mean Platelet Volume 10.9 fL (9.4-12.4); Monocytes Absolute Auto 0.5 X10*3/uL (0.1-1.2); Monocytes Percent Auto 8.1 % (2-11); Neutrophils Absolute Auto 3.4 x10*3/uL (2.0-8.3); Neutrophils Percent Auto 54.4 % (45-73); Platelet Count 184 X10*3/uL (160-400); Red Blood Count 4.52 X10*6/uL (4.60-5.80); Red Cell Distribution Width 12.5 % (11.0-16.0); White Blood Count 6.3 X10*3/uL (4.8-10.8)
[2022-01-15 07:23] LABS: Thyroid Stimulating Hormone 1.01 uIU/mL (0.32-4.0)
[2022-01-15] MEDS: 0.9 % Sodium Chloride Flush 3 ML SYRINGE IVFLUSH ×3 (07:48→20:55)
[2022-01-15] MEDS: Rivaroxaban 15 MG TABLET PO ×2 (07:48→20:55)
--- NOTE | 2022-01-15 12:10 | P.PNIM_ITS ---
Subjective Subjective Date of Service: 01/15/22 Interval History: seen and examined this AM denies cp or palp Review of Systems negative except HPI Physical Exam Vital Signs: Vital Signs: Last Vital Signs Temp 97.9 F 01/15/22 11:17 Pulse 78 01/15/22 11:17 Resp 16 01/15/22 11:17 BP 103/69 01/15/22 11:17 Pulse Ox 95 01/15/22 11:17 O2 Del Method 01/15/22 11:17 BMI result Body Mass Index 29.1 Const: Other: General - no acute distress, appears comfortable Cardiovascular - IRR Lungs - normal respiratory effort, clear to auscultation bilaterally, no wheezing Abdomen - soft, nontender, no rebound or guarding Extremities - no edema bilaterally Neuro - awake and alert, no focal deficits Objective Data Active Medications Acetaminophen (Acetaminophen 325 Mg Tablet) 650 mg PO Q6H PRN PRN Reason: Pain, Mild (Pain Scale 1-3) Atorvastatin Calcium (Atorvastatin Calcium 10 Mg Tablet) 10 mg PO BEDTIME [facility] Diltiazem HCl 125 mg/ Sodium (Chloride) 125 mls @ 0 mls/hr IVCONT .Q0M [facility]; Protocol Last Titration: 01/15/22 02:36 Dose: 0 mg/hr, 0 mls/hr Documented By: MARIA DEL CARMEN Metoprolol Tartrate (Metoprolol Tartrate 12.5 Mg Halftab) 12.5 mg PO BID [facility]; Protocol Last Admin: 01/15/22 07:47 Dose: 12.5 mg Documented By: HENRIETTA Omeprazole (Omeprazole 20 Mg Capsule.) 20 mg PO DAILY@0630 [facility] Last Admin: 01/15/22 05:26 Dose: 20 mg Documented By: WILBERT Ondansetron HCl (Ondansetron Hcl 4 Mg/2 Ml Vial) 4 mg IVPUSH Q8H PRN PRN Reason: Nausea and Vomiting Rivaroxaban (Rivaroxaban 15 Mg Tablet) 15 mg PO BID [facility] Last Admin: 01/15/22 07:48 Dose: 15 mg Documented By: HENRIETTA Sodium Chloride (0.9 % Sodium Chloride Flush 3 Ml Syringe) 3 ml IVFLUSH QSHIFT [facility] Last Admin: 01/15/22 07:48 Dose: 3 ml Documented By: HENRIETTA Vitamin D (Cholecalciferol (Vitamin D3) 25 Mcg Tablet) 25 mcg PO BEDTIME [facility] Labs CBC & Chem 7: 01/15/22 05:28 01/15/22 05:28 Labs: Laboratory Results - last 24 hr 01/14/22 01/14/22 01/14/22 18:44 18:44 18:44 MCV 89.7 MCH 29.6 MCHC 33.0 RDW 12.2 Plt Count 177 MPV 10.4 Immature Gran % (Auto) 0.3 Neut % (Auto) 51.3 Lymph % (Auto) 37.2 [place] % (Auto) 9.8 Eos % (Auto) 1.1 Baso % (Auto) 0.3 Lymph # (Auto) 2.4 [place] # (Auto) 0.6 Eos # (Auto) 0.1 Baso # (Auto) 0.0 Abs Immat Gran (auto) 0.02 Absolute Neuts (auto) 3.4 Absolute Nucleated RBC 0.000 Nucleated RBC % (auto) 0.0 PT 12.6 INR 1.1 APTT 30.9 Anion Gap Estim Creat Clear Calc Estimated GFR Random Glucose Calcium Troponin I High Sens 4.5 B-Natriuretic Peptide 457 H TSH COVID-19 (DRE) COVID-[place] Com 01/14/22 01/15/22 01/15/22 18:44 05:28 05:28 MCV 91.2 MCH 29.6 MCHC 32.5 RDW 12.5 Plt Count 184 MPV 10.9 Immature Gran % (Auto) 0.3 Neut % (Auto) 54.4 Lymph % (Auto) 35.5 [place] % (Auto) 8.1 Eos % (Auto) 1.4 Baso % (Auto) 0.3 Lymph # (Auto) 2.2 [place] # (Auto) 0.5 Eos # (Auto) 0.1 Baso # (Auto) 0.0 Abs Immat Gran (auto) 0.02 Absolute Neuts (auto) 3.4 Absolute Nucleated RBC 0.000 Nucleated RBC % (auto) 0.0 PT INR APTT Anion Gap 11 L Estim Creat Clear Calc 79.5 Estimated GFR > 60 Random Glucose 88 Calcium 8.8 Troponin I High Sens B-Natriuretic Peptide TSH 1.01 COVID-19 (DRE) Negative COVID-19 Clin Com See Note Assessment and Plan (1) Atrial fibrillation with rapid ventricular response: Status: Acute (2) Pulmonary embolism: Status: Acute Plan This is 61 yo M with a PMH of prior SVT who underwent a knee replacement about 2 months ago (treated with asa BID post op for dvt pptx per his reported history) who presented with a positive CTA for PE and A. Fib with RVR. He is admitted for further work up and treatment. 1. Acute pulmonary embolism Has recent surgery but was on dvt pptx post op. Will add hypercoag labs On Xarelto 15mg BID x 3 weeks, followed by 20mg thereafter Echo without RV stain 2. New onset A. fib with RVR s/p cardizem drip and now PO metoprolol and Xarelto as above 3. HLD statin Full Code DVT pptx, Xarelto patient requires continued hospitalization due to a. fib with variable rates requiring titrationg of medications. Quality Stroke Does the patient have a stroke diagnosis?: No VTE Prior VTE?: No VTE Risk Level:: Medical - moderate - high VTE Device Contraindication: Treatment Not Indicated VTE Drug Contraindication: N/A - Med Ordered
--- NOTE | 2022-01-15 12:48 | MHC.CM.PN ---
met with pts she explins that they are independent no servceis will be needed obs given has own ride home dc plan home no servceis
--- NOTE | 2022-01-15 15:47 | PM.CNCAR ---
History of Present Illness History of Present Illness Date of Service: 01/15/22 Requesting physician: Abdias Luu Consult reason: atrial fibrillation and other (Pulmonary embolism) Chief complaint: afib w/ rvr, PE Narrative: I was consulted to see Praful after his CTA report requested by me showing bilateral pulmonary emboli, large embolus in the segmental and subsegmental right pulmonary branch. However he has multiple emboli. He now says that his symptoms have been more consistent with pulmonary embolism, had chest pressure at nighttime in the last few days when he was laying down also has shortness of breath was not on a beta to catch his breath. He also had syncopal episode post knee surgery as reflected in my note yesterday. He continued to have orthostatic lightheadedness and low blood pressure yesterday. Remains in atrial fibrillation with rapid ventricular response with borderline rate control. His blood pressure is well controlled. He has no other symptoms. Started on oral anticoagulation therapy with Xarelto. He says he is breathing is improved a little bit. He is not feeling fluttering in his chest as much. Echocardiogram done at bedside shows normal RV size and systolic function normal LV systolic function without significant pulmonary hypertension. Review of Systems Constitutional: Constitutional: Reports no additional constitutional complaints Eyes: Eyes: Reports no additional eye complaints Cardiovascular: Cardiovascular: Reports chest pain, Denies leg edema, Reports lightheadedness, Reports Loss of Consciousness, Reports palpitations and Reports dyspnea on exertion Respiratory: Respiratory: Reports no additional respiratory complaints and Reports dyspnea on exertion Gastrointestinal: Gastrointestinal: Reports no additional gastrointestinal complaints Genitourinary: Genitourinary: Reports no additional male genitourinary complaints Musculoskeletal: Musculoskeletal: Reports no additional musculoskeletal complaints Integumentary/Breasts: Skin/Breast: Reports system reviewed and no additional complaints, except as docu Neurologic: Reports system reviewed and no additional complaints, except as documented Psychiatric: Psychiatric: Reports no additional psychiatric complaints Endocrine: Endocrine: Reports no additional endocrine complaints and Reports palpitations Hematologic/Lymphatic: Hematologic/Lymphatic: Reports no additional hematologic/lymphatic complaints PMFSH Past Medical History Medical History Anxiety Barretts esophagus GERD (gastroesophageal reflux disease) Hypercholesterolemia Obesity (BMI 30-39.9) Palpitations Family History Family History Father No problems noted. Mother Colon cancer Sister Leukemia Brother Stomach cancer Surgical History Surgical History History of arthroscopy of left knee History of esophagogastroduodenoscopy (EGD) History of eye surgery History of knee replacement procedure of left knee History of umbilical hernia repair Hx of colonoscopy Social History Social History Household Members: Family Housing: House Alcohol intake: current Alcohol intake frequency: a few times a month Alcohol type: wine Patient Tobacco Use Status: Never used Tobacco e-Cigarette/Vaping Use: Never Used Second Hand Smoke Exposure: No Use of substances other than those prescribed or required for medical reasons: No Have you been hit, kicked, punched, or otherwise hurt by someone within the past year? If so, by whom?: No Do you feel safe in your current relationship?: No Current Relationship Is there a partner from a previous relationship who is making you feel unsafe now?: No Are you made to feel afraid or neglected: No Advance Directives: No Advance Directives Information Provided: Yes Do you have thoughts of harming others: None Do you have a plan to hurt others: No Plan Recently lost weight without trying: No Eating poorly because of decreased appetite: No Nutrition Risks: No Nutritional Risk Poor oral hygiene: No service: No Current occupational status: employed Meds Allergies Allergy/AdvReac Type Severity Reaction Status Date / Time No Known Allergies Allergy Verified 01/14/22 17:51 Active Medications: Current Medications Acetaminophen (Acetaminophen 325 Mg Tablet) 650 mg PO Q6H PRN PRN Reason: Pain, Mild (Pain Scale 1-3) Atorvastatin Calcium (Atorvastatin Calcium 10 Mg Tablet) 10 mg PO BEDTIME [facility] Metoprolol Tartrate (Metoprolol Tartrate 12.5 Mg Halftab) 12.5 mg PO BID [facility]; Protocol Last Admin: 01/15/22 07:47 Dose: 12.5 mg Omeprazole (Omeprazole 20 Mg Capsule.Dr) 20 mg PO DAILY@0630 [facility] Last Admin: 01/15/22 05:26 Dose: 20 mg Ondansetron HCl (Ondansetron Hcl 4 Mg/2 Ml Vial) 4 mg IVPUSH Q8H PRN PRN Reason: Nausea and Vomiting Rivaroxaban (Rivaroxaban 15 Mg Tablet) 15 mg PO BID [facility] Last Admin: 01/15/22 07:48 Dose: 15 mg Sodium Chloride (0.9 % Sodium Chloride Flush 3 Ml Syringe) 3 ml IVFLUSH QSHIFT [facility] Last Admin: 01/15/22 07:48 Dose: 3 ml Vitamin D (Cholecalciferol (Vitamin D3) 25 Mcg Tablet) 25 mcg PO BEDTIME [facility] Home Medications Medication Instructions Recorded Confirmed Last Taken Type cholecalciferol (vitamin D3) 25 25 mcg PO BEDTIME 06/05/20 01/14/22 01/13/22 History mcg (1,000 unit) capsule omeprazole 20 mg capsule,delayed 20 mg PO DAILY 01/14/22 01/14/22 01/14/22 History release simvastatin 20 mg tablet 20 mg PO BEDTIME 01/14/22 01/14/22 01/13/22 History Physical Exam Vital Signs: Vital Signs: Last Vital Signs Temp 97.8 F 01/15/22 15:44 Pulse 94 01/15/22 15:44 Resp 18 01/15/22 15:44 BP 114/62 01/15/22 15:44 Pulse Ox 99 01/15/22 15:44 O2 Del Method 01/15/22 15:44 BMI result Body Mass Index 29.1 Const: General: cooperative, comfortable, no acute distress, alert and awake Nutritional Appearance: well nourished and overweight Orientation/consciousness: patient oriented x3 Limitations: no limitations HEENT: Head: Yes normocephalic and Yes atraumatic Neck: Neck: Yes trachea midline, Yes supple and Yes no JVD Chest: Chest palpation & inspection: normal inspection of the chest Resp: Effort & Inspection: normal respiratory effort Auscultation: clear to auscultation bilaterally Cardio: Jugular venous distension: no JVD Rate: tachycardic Rhythm: abnormal rhythm irregularly irregular Heart sounds: S1 normal heart sound present, S2 normal heart sound present, no click, no gallops, no murmurs and no rubs GI: Auscultation: normal bowel sounds Neuro: General: patient oriented x3 and no focal motor deficits Extrem: General: Yes no clubbing, cyanosis or edema Objective Labs and Meds Result diagrams: 01/15/22 05:28 01/15/22 05:28 Lab results: Laboratory Results - last 24 hr 01/14/22 01/14/22 01/14/22 18:44 18:44 18:44 WBC 6.6 RBC 4.46 L Hgb 13.2 L Hct 40.0 L MCV 89.7 MCH 29.6 MCHC 33.0 RDW 12.2 Plt Count 177 MPV 10.4 Immature Gran % (Auto) 0.3 Neut % (Auto) 51.3 Lymph % (Auto) 37.2 [place] % (Auto) 9.8 Eos % (Auto) 1.1 Baso % (Auto) 0.3 Lymph # (Auto) 2.4 [place] # (Auto) 0.6 Eos # (Auto) 0.1 Baso # (Auto) 0.0 Abs Immat Gran (auto) 0.02 Absolute Neuts (auto) 3.4 Absolute Nucleated RBC 0.000 Nucleated RBC % (auto) 0.0 PT 12.6 INR 1.1 APTT 30.9 Sodium Potassium Chloride Carbon Dioxide Anion Gap BUN Creatinine Estim Creat Clear Calc Estimated GFR Random Glucose Calcium Troponin I High Sens 4.5 B-Natriuretic Peptide 457 H TSH COVID-19 (DRE) COVID-19 Clin Com 01/14/22 01/15/22 01/15/22 18:44 05:28 05:28 WBC 6.3 RBC 4.52 L Hgb 13.4 L Hct 41.2 L MCV 91.2 MCH 29.6 MCHC 32.5 RDW 12.5 Plt Count 184 MPV 10.9 Immature Gran % (Auto) 0.3 Neut % (Auto) 54.4 Lymph % (Auto) 35.5 [place] % (Auto) 8.1 Eos % (Auto) 1.4 Baso % (Auto) 0.3 Lymph # (Auto) 2.2 [place] # (Auto) 0.5 Eos # (Auto) 0.1 Baso # (Auto) 0.0 Abs Immat Gran (auto) 0.02 Absolute Neuts (auto) 3.4 Absolute Nucleated RBC 0.000 Nucleated RBC % (auto) 0.0 PT INR APTT Sodium 142 Potassium 4.8 Chloride 108 Carbon Dioxide 28 Anion Gap 11 L BUN 16 Creatinine 1.21 Estim Creat Clear Calc 79.5 Estimated GFR > 60 Random Glucose 88 Calcium 8.8 Troponin I High Sens B-Natriuretic Peptide TSH 1.01 COVID-19 (DRE) Negative COVID-19 Clin Com See Note Imaging Radiologist's impression: Impressions Venous Duplex 01/14/22 18:21 IMPRESSION: No DVT demonstrated in the left lower extremity. Assessment and Plan (1) Persistent atrial fibrillation: Status: Acute Persistent atrial fibrillation with borderline rate control. Will further up titrate metoprolol to 25 mg b.i.d. in add digoxin 0.25 mg to his regimen due to softer blood pressure. Continue to monitor blood pressure regularly. Target heart rate less than 100 beats per minute. If remains control can be discharged probably tomorrow. No THERON guided cardioversion given his acute pulmonary embolism at this point time. Likely that his atrial fibrillation may revert back to normal sinus rhythm with treatment and resolution of his pulmonary embolism. This was discussed with him. If he does not convert back to sinus rhythm on his own will schedule for synchronized cardioversion in 4 weeks time. This was discussed with him in details. (2) Pulmonary embolism: Status: Acute Bilateral pulmonary embolism causing most of his symptoms including atrial fibrillation. Pathophysiology of pulmonary embolism was discussed. This happened post knee replacement although he was out of the hospital within 2 hours. I think he should be undergoing workup for thrombophilia and consider Hematology consultation. For now will continue with Xarelto 15 mg b.i.d. for 21 days followed by 20 mg daily for oral anticoagulation. There are no other high risk features at this point time does not require any thrombolytics therapy. Advise out of bed to chair. Will continue to follow with you Procedures Date of Service Date of Service: 01/15/22
[2022-01-15] MEDS: Digoxin 0.25 MG TABLET PO (16:07)
[2022-01-15] MEDS: Metoprolol Tartrate 25 MG TABLET PO (20:55)
[2022-01-15] MEDS: Cholecalciferol (Vitamin D3) 25 MCG TABLET PO (20:55)
[2022-01-15] MEDS: Atorvastatin Calcium 10 MG TABLET PO (20:55)
[2022-01-15] MEDS: Metoprolol Tartrate 5 MG/5 ML VIAL 2.5 MG IVPUSH (23:50)
--- NOTE | 2022-01-15 23:59 | MHC.PIE ---
p; p 120-160. bp 99/58. pt denies ch pain at this time i; dr mays notified; new order lopressor 2.5 mg iv now e; will cont to monitor
[2022-01-16] MEDS: Metoprolol Tartrate 5 MG/5 ML VIAL 2.5 MG IVPUSH (01:21)
[2022-01-16] MEDS: dilTIAZem HCL 125 MG in 0.9 % Sodium Chloride 100 ML IVCONT (02:09)
[2022-01-16 04:00] VITALS: BP 98/72; PULSE 72; RESP 18; TEMP 36.6; O2SAT 95
[2022-01-16] MEDS: Omeprazole 20 MG CAPSULE.DR PO (05:29)
[2022-01-16 08:00] VITALS: BP 101/69; PULSE 78; RESP 16; TEMP 36.1; O2SAT 96
[2022-01-16] MEDS: Rivaroxaban 15 MG TABLET PO (08:25)
[2022-01-16] MEDS: Digoxin 0.25 MG TABLET PO (08:25)
[2022-01-16] MEDS: Metoprolol Tartrate 25 MG TABLET PO (08:25)
[2022-01-16] MEDS: 0.9 % Sodium Chloride Flush 3 ML SYRINGE IVFLUSH (08:26)
--- NOTE | 2022-01-16 10:16 | P.CDIC_ITS ---
CDI Concurrent Query Documentation Clarification: PHYSICIAN'S DOCUMENTATION REQUEST Date of Query: 01/16/22 1019 Patient Name: Praful Morgan Admit Date: 01/15/22 Dear Doctor, A review of the medical record indicates additional documentation may be needed. Please review below and update the documentation accordingly. Clinical Indicators: The following diagnoses or signs and symptoms were noted in the patient record: Risk Factors/Clinical Indicators/Treatments CT 01/14 - Multiple bilateral pulmonary emboli. Large emboli in the segmental and subsegmental branches of the right pulmonary artery. Smaller volume of emboli present on the left and subsegmental branches of the left lower and left upper lobe. Based on the above, could you clarify in the Progress Notes the appropriate diagnosis, if significant, that supports the above abnormalities and additional evaluation, monitoring, and/or treatment rendered: * Acute pulmonary embolism * Multiple (bilateral) subsegmental pulmonary embolism without acute cor pulmonale * Other (please specify) * Unable to determine Use of terms such as suspected, likely, concern for, or probable (associated with a specific diagnosis that is being evaluated, monitored, or treated as if it exists) are acceptable and can be coded in the inpatient setting, when documented at the time of discharge. Thank you, Mary Neal [facility], CDIS Extension: [phone] Please use your independent medical judgment in providing your response. THIS QUERY IS PART OF THE PERMANENT MEDICAL RECORD Provider Response: Other Other Diagnosis: Multiple bilateral segmental + subsegmental pulmonary embolism without cor pulmonale
--- NOTE | 2022-01-16 10:49 | P.PNCA_ITS ---
Subjective Subjective Date of Service: 01/16/22 Principal diagnosis: atrial fibrillation, PE Interval history: patient currently not having any symptoms. Overnight he had rapid heart rate and he was given IV Cardizem. However this morning his heart rate is better controlled in the 70s and 80s. With walking his heart rate goes up to 110-120 beats per minute. Denies any palpitations. Denies any worsening shortness of breath or chest discomfort. No lightheadedness. Review of Systems Review of Systems Yes all other systems are reviewed and are negative Physical Exam Vital Signs: Last Vital Signs Temp 96.9 F 01/16/22 08:00 Pulse 78 01/16/22 08:00 Resp 16 01/16/22 08:00 BP 101/69 01/16/22 08:00 Pulse Ox 96 01/16/22 08:00 O2 Del Method 01/16/22 08:00 BMI result Body Mass Index 29.1 Const General: cooperative, comfortable, no acute distress, alert and awake Nutritional Appearance: well nourished and overweight Orientation/consciousness: patient oriented x3 Limitations: no limitations HEENT Head: Yes normocephalic and Yes atraumatic Neck Neck: Yes trachea midline, Yes supple and Yes no JVD Chest Chest palpation & inspection: normal inspection of the chest Resp Effort & Inspection: normal respiratory effort Auscultation: clear to auscultation bilaterally Cardio Jugular venous distension: no JVD Rate: tachycardic Rhythm: abnormal rhythm irregularly irregular Heart sounds: S1 normal heart sound present, S2 normal heart sound present, no click, no gallops, no murmurs and no rubs GI Auscultation: normal bowel sounds Neuro General: patient oriented x3 and no focal motor deficits Extrem General: Yes no clubbing, cyanosis or edema Objective Labs and Meds Result diagrams: 01/15/22 05:28 01/15/22 05:28 Progress Note: A&P Assessment and plan (1) Atrial fibrillation with rapid ventricular response: Status: Acute Assessment and Plan: Atrial fibrillation with borderline rate control. Cannot maximize metoprolol therapy due to low blood pressure. However can discharge home as patient remains in symptomatic and walking heart rate going up to 110 beats per minute. Continue metoprolol and digoxin for now. Will follow up with outpatient Holter monitor in near future. Further treatment based on his finding. If he continues to have difficult to control heart rate may have to consider THERON guided cardioversion sooner rather than later. If not and he remains in atrial fibrillation in 3 weeks time will pursue synchronized cardioversion without THERON. This was discussed with him. He understands and agrees. He is advised to avoid strenuous exertion. (2) Pulmonary embolism: Status: Acute Assessment and Plan: Pulmonary embolism bilateral with normal RV systolic function and size. No significant pulmonary hypertension. Continue oral anticoagulation therapy as prescribed. Advised to avoid strenuous exertion. Given his bilateral pulmonary embolism recent syncopal events would like to avoid anesthesia if possible. Therefore management would be medical for his atrial fibrillation. Thromboph robert workup should be consider and/or consider Hematology consultation. Will follow with him as outpatient Time Spent With Patient Time: Total time spent is greater than 50% in coordination of care (as documented) at patient's floor/unit and/or counseling patient: Progress Note: Quality Stroke Does the patient have a stroke diagnosis?: No Procedures Date of Service Date of Service: 01/16/22
--- NOTE | 2022-01-16 11:21 | MHC.CM.PN ---
Addendum entered by Maren Harper 01/16/22 13:00: Patient has been prescribed Xarelto. AC therapy management education provided. The Xarelto coupon was provided. Addendum entered by Maren Harper 01/16/22 11:53: Patient is discharged to home. No services ordered. Patients providing transportation home. Original Note: Per MD rounds patient will discharge to home today. No services have been ordered. Family will provide transportation home.
--- NOTE | 2022-01-16 11:25 | P.DS_ITS ---
DS: Providers Provider Date of Service: 01/16/22 Date of admission: 01/15/22 12:35 Primary care physician: Ninfa Pena MD Consults: 01/14/22 21:26 Consult to Cardiology Routine Consulting Provider: Sajan Fernando Reason for consultation: A fib w RVR Has provider been notified: Yes DS: Diagnosis Discharge Diagnosis (1) Atrial fibrillation with rapid ventricular response: Status: Acute (2) Pulmonary embolism: Status: Acute DS: Summary Hospital Course Hospital Course: HPI from the admission H&P: 'this is a 61-year-old male with past medical history of Lo's esophagus, GERD, HLD, history of SVT who presents to the hospital after being found to have AFib at cardiology office. ? patient reports that he underwent knee surgery sometime in November, but for all of December he was not feeling too great.? He reports several dizzy episodes that were similar to his episodes of SVT, he was also feeling on and off palpitations, lightheadedness, as well as feeling tired and fatigued.? He reports that he was compliant with his anticoagulation of aspirin full dose twice a day and took that for 30 days post surgery.? Patient has been active, reports that since Friday he then developed fluttering that was constant, lasting longer, associated with lightheadedness, feeling short of? breath and having tightness in the chest with deep inspiration. ? He reports no swelling in his legs except for knee swelling at the site of surgery, no headache or change in vision, no abdominal pain nausea or vomiting, no diarrhea constipation, no urinary symptoms.? 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 Blood pressure was also low, therefore patient was sent to the ED.? On his arrival to the ED heart rate was 167 blood pressure of ? 109/90.? Patient also had a CT angiogram done by the gunstock spray unit adjuster with showed bilateral PE.? Patient therefore will be admitted for further management.? On arrival to the ED patient was found to have a WBC count of 6.6, hemoglobin of 13.2, BNP of 457,Troponin of 4.5.? ?labs otherwise unremarkable Negative venous duplex of lower extremity EKG showed AFib with RVR ?patient started on Cardizem drip and will be admitted for further management Hospital course: Patient was started on Xarelto 15 mg twice daily for his acute bilateral pulmonary embolism. For his AFib he was initiated on IV Cardizem drip. He was evaluated by cardiology in underwent a 2D echo which showed preserved ejection fraction and no evidence of right heart strain. He was transition from IV Cardizem to p.o. metoprolol as well as digoxin. On the day of discharge he was ambulated his heart rates in the acceptable range. He has been advised to not excessively exert himself physically. He is to follow-up with Cardiology for Holter monitoring. He needs 19 more days of Xarelto 50 mg twice daily followed by 20 mg thereafter. He is 2 months from his surgery, but nonetheless Hypercoag. work up has been ordrered for his VTE. Discharge Diagnosis: 1. Multiple bilateral segmental + subsegmental pulmonary embolism without cor pulmonale 2. A. fib with RVR Time Spent with Patient Time attestation: Total time spent providing and/or coordinating discharge services: Discharge coordination time: Greater than 30 minutes Quality: Safe Use of Opioids Does Pt have an Active Cancer Diagnosis on the Problem List?: No Quality: Stroke Does the patient have a stroke diagnosis?: No Physical Exam Vital Signs: Vital Signs: Last Vital Signs Temp 96.9 F 01/16/22 08:00 Pulse 78 01/16/22 08:00 Resp 16 01/16/22 08:00 BP 101/69 01/16/22 08:00 Pulse Ox 96 01/16/22 08:00 O2 Del Method 01/16/22 08:00 BMI result Body Mass Index 29.1 Const: Other: General - no acute distress, appears comfortable Cardiovascular - rIRR Lungs - normal respiratory effort, clear to auscultation bilaterally, no wheezing Abdomen - soft, nontender, no rebound or guarding Extremities - no edema bilaterally Neuro - awake and alert, no focal deficits Discharge Plan Discharge Patient Disposition: Home, Self-Care Discharge Diagnosis: PE.A Fib Referrals: Po,Ninfa Nelson MD [Primary Care Provider] - 1 Week Discharge Medications: New digoxin 250 mcg (0.25 mg) Tablet 0.25 mg PO DAILY Qty: 30 0RF metoprolol tartrate 25 mg Tablet 25 mg PO BID Qty: 60 0RF Protocol: Hold for SBP/HR < HOLD for SBP < : 90 HOLD for HR < : 60 Xarelto 15 mg tablet 15 mg PO BID Qty: 38 0RF Rx Instructions: must administer with evening meal Continued simvastatin 20 mg tablet 20 mg PO BEDTIME cholecalciferol (vitamin D3) 25 mcg (1,000 unit) capsule 25 mcg PO BEDTIME omeprazole 20 mg capsule,delayed release(DR/EC) 20 mg PO DAILY Discontinued metoprolol succinate [Toprol XL] 25 mg tablet extended release 24 hr 25 mg PO DAILY Qty: 30 2RF Xarelto 20 mg tablet 20 mg PO QPM Qty: 30 5RF Rx Instructions: must administer with evening meal Discharge Orders: Discharge Order (Routine); Ordered 01/16/22 Ordered By: Abdias Luu Diet: Advance to usual diet Activity on Discharge: No Contact sports Stand Alone Forms: Patient Portal Discharge page Care Plan Goals: To stay healthy and out of the hospital. Health Concerns: A. Fib PE Plan of Treatment: For your AFib take metoprolol 25 mg twice daily and digoxin 0.25 mg daily. Follow-up with Dr. Fernando for Holter monitor. For your pulmonary embolism take Xarelto 15 mg twice daily for 19 more days. After the start taking 20 mg daily. Do not do any strenuous exercise Assessment: see discharge summary
[2022-01-16 11:50] VITALS: BP 91/55; PULSE 78; RESP 20; TEMP 36.2; O2SAT 97
[2022-01-19 19:56] LABS: Protein C Activity 136 % (70-180); Protein S Activity rflx Tot&Fr 117 % (70-150)
[2022-01-19 21:52] LABS: Anti-Thrombin III Antigen 84 % (80-120)
[2022-01-20 05:46] LABS: DRVVT 1:1 Mix Interpretation Not Indicated; DRVVT Confirmation Negative (Negative); PTT (LAC) Screen 40 sec (<=40)
[2022-01-21 18:56] LABS: Factor V Leiden NEGATIVE
[2022-01-21 19:32] LABS: Prothrombin 20210A NEGATIVE
[2022-01-22 09:35] LABS: Cardiolipin IgG Ab <2.0 GPL-U/mL; Cardiolipin IgM Ab 3.4 MPL-U/mL
== END 2022-01-16 13:22 | disposition home or self-care (01) | DRG 134 ==
LOC: HO.ED 21:16 → HO.EDOVER 21:34 → HO.S3 01-15 01:04 → HO.IMC 01-16 04:40
PROVIDERS: Admitting Provider Internal Medicine; Emergency Provider Internal Medicine; PCP Internal Medicine; Visit Provider Family Medicine
DX: I26.94 Multiple subsegmental thrombotic pulmonary emboli without acute cor pulmonale (principal); I48.19 Other persistent atrial fibrillation; E78.5 Hyperlipidemia, unspecified; F41.9 Anxiety disorder, unspecified; Z96.652 Presence of left artificial knee joint; Z79.899 Other long term (current) drug therapy
CPT/HCPCS: 36415; 80048; 81240; 81241; 83090; 83880; 84443; 84484; 85025; 85301; 85302; 85303; 85305; 85306; 85597; 85610; 85613; 85730; 86147; 87635; 93005; 93306; 93971; 96361; 96365; 96366; 96375; 99285

== ENCOUNTER → 2022-01-21 14:28 | Outpatient (REF) | payer OTHER, SELFPAY ==
--- NOTE | 2022-01-21 14:32 | ECG_ITS ---
Test Reason : afib Blood Pressure : / mmHG Vent. Rate : 048 BPM Atrial Rate : 048 BPM P-R Int : 210 ms QRS Dur : 104 ms QT Int : 458 ms P-R-T Axes : 031 018 018 degrees QTc Int : 409 ms Sinus bradycardia with 1st degree A-V block Otherwise normal ECG When compared with ECG of 14-JAN-2022 18:32, Sinus rhythm has replaced Atrial fibrillation Vent. rate has decreased BY 51 BPM T wave inversion no longer evident in Anterior leads Referred By: Sajan Fernando Electronically Signed By:Shar Gruber
--- NOTE | 2022-01-21 14:32 | HM_ITS ---
* Total monitoring time 3 days. * Underlying rhythm is sinus. Average rate 52/min. Range 35 to 94/Min. * About 38% the time, rate less than 60/Min. * No atrial fibrillation or flutter or AV blocks or pauses. * Very rare supraventricular and ventricular ectopy with minimal burden. * Dizziness/near syncope reported by patient but no clear arrhythmic etiology. MTDD
== END ==
LOC: HO.CARD 14:28
PROVIDERS: Visit Provider Internal Medicine Cardiovascular Disease
DX: I47.1 Supraventricular tachycardia (principal); I48.19 Other persistent atrial fibrillation; R00.2 Palpitations
CPT/HCPCS: 93005; 93242

== ENCOUNTER 2022-04-22 12:47 | Emergency (ER) | payer OTHER, SELFPAY ==
--- NOTE | 2022-04-22 13:02 | ECG_ITS ---
Test Reason : svt Blood Pressure : / mmHG Vent. Rate : 068 BPM Atrial Rate : 068 BPM P-R Int : 212 ms QRS Dur : 106 ms QT Int : 412 ms P-R-T Axes : 037 000 010 degrees QTc Int : 438 ms Sinus rhythm with 1st degree A-V block Otherwise normal ECG When compared with ECG of 21-JAN-2022 14:29, No significant change was found Referred By: Danyelle Reyna Electronically Signed By:MIRIAM HESTER MD
[2022-04-22 13:08] VITALS: BP 116/77; PULSE 74; RESP 18; TEMP 36.3; O2SAT 97; BMI 30.9
[2022-04-22 13:12] LABS: MANUAL DIFF FLAG NO
[2022-04-22 13:14] LABS: Basophils Percent Auto 0.4 % (0-2); Eosinophils Absolute Auto 0.1 X10*3/uL (0.0-0.4); Eosinophils Percent Auto 0.9 % (0-4); Hematocrit 45.7 % (42.0-52.0); Hemoglobin 15.7 g/dl (14.0-18.0); Imm Gran Abs Auto 0.02 X10*3/uL (0.00-0.03); Imm Gran Pct Auto 0.3 % (0.0-0.4); Lymphocytes Absolute Auto 3.1 X10*3/uL (1.2-4.9); Lymphocytes Percent Auto 40.4 % (20-40); Mean Corpuscular HGB Conc 34.4 g/dl (31.0-36.0); Mean Corpuscular Hemoglobin 30.3 pg (27.0-33.0); Mean Corpuscular Volume 88.1 fL (80.0-98.0); Mean Platelet Volume 10.5 fL (9.4-12.4); Monocytes Absolute Auto 0.5 X10*3/uL (0.1-1.2); Monocytes Percent Auto 6.9 % (2-11); Neutrophils Absolute Auto 3.9 x10*3/uL (2.0-8.3); Neutrophils Percent Auto 51.1 % (45-73); Platelet Count 226 X10*3/uL (160-400); Red Blood Count 5.19 X10*6/uL (4.60-5.80); Red Cell Distribution Width 12.9 % (11.0-16.0); White Blood Count 7.7 X10*3/uL (4.8-10.8)
[2022-04-22 13:22] VITALS: BP 118/77; PULSE 70; PULSE 71; RESP 16; TEMP 36.8; O2SAT 98
[2022-04-22 13:22] LABS: INTERNATIONAL NORM RATIO 1.4 (0.9-1.1); Prothrombin Time 16.8 SEC (10.0-13.1)
--- NOTE | 2022-04-22 13:24 | ED_ITS ---
HPI - Arrhythmia/Palpitations General Chief Complaint: Arrhythmia/Palpitations Stated Complaint: SVT Time Seen by Provider: 04/22/22 13:01 Source: patient Mode of arrival: ambulatory Limitations: no limitations History of Present Illness HPI narrative: 61 yo male with hx of afib due to PE post L TKR on xarelto but no rate control medications, SVT but has never had it caught and has not received cardioversion in the past, GERD, HLD here with c/o being at the gym then he felt palpitations and knew he was in SVT. 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 No changes in medications. Feels a little short of breath but otherwise is okay. complaint: rapid heart beat and palpitations Onset (ago): minute(s) (15) Duration: constant Severity: severe Context: occurred during exertion Arrhythmia history: atrial fibrillation, SVT and on anti-coagulants Associated symptoms: shortness of breath Treatments prior to arrival: vagal maneuvers Related Data Home Medications Medication Instructions Recorded Confirmed cholecalciferol (vitamin D3) 25 25 mcg PO BEDTIME 06/05/20 03/01/22 mcg (1,000 unit) capsule (Vitamin D3) omeprazole 20 mg capsule,delayed 20 mg PO DAILY 01/14/22 03/01/22 release Previous Rx's Medication Instructions Recorded rivaroxaban 20 mg tablet (Xarelto) 20 mg PO DAILY 30 days #30 tabs 01/23/22 simvastatin 20 mg tablet 20 mg PO BEDTIME #90 tabs 04/12/22 metoprolol succinate 25 mg 25 mg PO DAILY #30 tabs 04/22/22 tablet,extended release 24 hr (Toprol XL) Allergies Allergy/AdvReac Type Severity Reaction Status Date / Time No Known Allergies Allergy Verified 01/23/22 10:41 Review of Systems Review of Systems: Constitutional : No Fever, No Chills ENT/Mouth : No sore throat, No Rhinorrhea, No Swallowing Difficulty Eyes: No Eye Pain, No Swelling, No Redness Cardiovascular : No Chest Pain, positive SOB, No Orthopnea, no Edema, pos palpitations Respiratory : No Cough, No Sputum, No Wheezing, positive dyspnea Gastrointestinal : No Nausea, No Vomiting, No Diarrhea, No abdominal Pain, No Hematochezia, No Melena Genitourinary : No Dysuria, No Urinary Frequency, No Hematuria Musculoskeletal : No joint pain, No Myalgias Skin : No Skin Lesions, No rash Neuro : No Weakness, No Numbness, No Dizziness, No Headache Psych : No Anxiety/Panic, No Depression Heme/Lymph: No Bruising, No Lymphadenopathy Endocrine : No Polyuria, No Polydipsia All other systems reviewed and are negative [facility] Past Medical History Attestation statement: The following information was validated with the patient. Medical History Afib Anxiety Barretts esophagus GERD (gastroesophageal reflux disease) Hypercholesterolemia Obesity (BMI 30-39.9) Palpitations Pulmonary embolism Surgical History History of arthroscopy of left knee History of esophagogastroduodenoscopy (EGD) History of eye surgery History of knee replacement procedure of left knee History of umbilical hernia repair Hx of colonoscopy Family History Family History Father No problems noted. Mother Colon cancer Sister Leukemia Brother Stomach cancer Social History Social History Household Members: Family Housing: House Alcohol intake: current Alcohol intake frequency: a few times a week Alcohol type: wine Patient Tobacco Use Status: Never used Tobacco e-Cigarette/Vaping Use: Never Used Second Hand Smoke Exposure: No Use of substances other than those prescribed or required for medical reasons: No service: No Current occupational status: employed Cognitive needs: No Hearing needs: No Vision needs: No Physical Exam Vital Signs: Vital Signs: Last Vital Signs Temp 98.3 F 04/22/22 13:22 Pulse 71 04/22/22 13:22 Resp 16 04/22/22 13:22 BP 118/77 04/22/22 13:22 Pulse Ox 98 04/22/22 13:22 O2 Del Method 04/22/22 13:22 BMI result Body Mass Index 30.9 Appearance: Alert. Oriented X3. Mild acute distress. Anxious Eyes: Pupils equal, round and reactive to light. ENT: Pharynx normal. Neck: Normal inspection. Neck supple. CVS: tachycardic heart rate and rhythm. Pulses normal. Respiratory: No respiratory distress. Breath sounds normal. Abdomen: Soft and nontender. Skin: Skin warm and dry. Normal skin color. Normal skin turgor. Extremities: No lower extremity edema. No calf ttp Neuro: Oriented X 3. No motor deficit. No sensory deficit. Course Course Course Narrative: in SVT - okay to DC per Dr. Gruber, feels better VS stable, start on toprol 25mg follow up with Dr. Fernando. feels fine labs stable MDM - Arrhythmia/Palpitations MDM Narrative Medical decision making narrative: 61 yo male with hx of afib due to PE post L TKR on xarelto but no rate control medications, SVT here in SVT - hx of same in past, will cardiovert then reassess. Doubt ACS has hx of SVT. Already on xarelto doubt VTE. 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 Anticipate DC home after conversion. Lab Data Result diagrams: 04/22/22 13:05 04/22/22 13:05 Labs: Lab Results 04/22/22 04/22/22 04/22/22 Range/Units 13:05 13:05 13:05 WBC 7.7 (4.8-10.8) X10*3/uL RBC 5.19 (4.60-5.80) X10*6/uL Hgb 15.7 (14.0-18.0) g/dl Hct 45.7 (42.0-52.0) % MCV 88.1 (80.0-98.0) fL MCH 30.3 (27.0-33.0) pg MCHC 34.4 (31.0-36.0) g/dl RDW 12.9 (11.0-16.0) % Plt Count 226 (160-400) X10*3/uL MPV 10.5 (9.4-12.4) fL Immature Gran % (Auto) 0.3 (0.0-0.4) % Neut % (Auto) 51.1 (45-73) % Lymph % (Auto) 40.4 H (20-40) % [place] % (Auto) 6.9 (2-11) % Eos % (Auto) 0.9 (0-4) % Baso % (Auto) 0.4 (0-2) % Lymph # (Auto) 3.1 (1.2-4.9) X10*3/uL [place] # (Auto) 0.5 (0.1-1.2) X10*3/uL Eos # (Auto) 0.1 (0.0-0.4) X10*3/uL Baso # (Auto) 0.0 (0.0-0.2) X10*3/uL Abs Immat Gran (auto) 0.02 (0.00-0.03) X10*3/uL Absolute Neuts (auto) 3.9 (2.0-8.3) x10*3/uL Absolute Nucleated RBC 0.000 (0.0-0.012) X10*3/uL Nucleated RBC % (auto) 0.0 (0.0-0.2) /100WBC PT 16.8 H (10.0-13.1) SEC INR 1.4 H (0.9-1.1) Sodium (135-145) mmol/L Potassium (3.3-5.1) mmol/L Chloride (96-108) mmol/L Carbon Dioxide (22-29) mmol/L Anion Gap (12-20) BUN (9-16) mg/dL Creatinine (0.5-1.4) mg/dL Estim Creat Clear Calc Estimated GFR Random Glucose (60-115) mg/dL Calcium (8.4-10.2) mg/dL Magnesium (1.6-2.6) mg/dL Total Bilirubin (0.0-1.0) mg/dL Direct Bilirubin (0.0-0.5) mg/dL AST (5-37) U/L ALT (0-40) U/L Alkaline Phosphatase (39-117) U/L Troponin I High Sens < 3.5 (<3.5-35.0) ng/L Total Protein (6.5-8.0) g/dL Albumin (3.5-5.0) g/dL TSH (0.32-4.0) uIU/mL 04/22/22 Range/Units 13:05 WBC (4.8-10.8) X10*3/uL RBC (4.60-5.80) X10*6/uL Hgb (14.0-18.0) g/dl Hct (42.0-52.0) % MCV (80.0-98.0) fL MCH (27.0-33.0) pg MCHC (31.0-36.0) g/dl RDW (11.0-16.0) % Plt Count (160-400) X10*3/uL MPV (9.4-12.4) fL Immature Gran % (Auto) (0.0-0.4) % Neut % (Auto) (45-73) % Lymph % (Auto) (20-40) % [place] % (Auto) (2-11) % Eos % (Auto) (0-4) % Baso % (Auto) (0-2) % Lymph # (Auto) (1.2-4.9) X10*3/uL [place] # (Auto) (0.1-1.2) X10*3/uL Eos # (Auto) (0.0-0.4) X10*3/uL Baso # (Auto) (0.0-0.2) X10*3/uL Abs Immat Gran (auto) (0.00-0.03) X10*3/uL Absolute Neuts (auto) (2.0-8.3) x10*3/uL Absolute Nucleated RBC (0.0-0.012) X10*3/uL Nucleated RBC % (auto) (0.0-0.2) /100WBC PT (10.0-13.1) SEC INR (0.9-1.1) Sodium 142 (135-145) mmol/L Potassium 3.9 (3.3-5.1) mmol/L Chloride 107 (96-108) mmol/L Carbon Dioxide 23 (22-29) mmol/L Anion Gap 16 (12-20) BUN 25 H D (9-16) mg/dL Creatinine 1.19 (0.5-1.4) mg/dL Estim Creat Clear Calc 83.0 Estimated GFR > 60 Random Glucose 107 (60-115) mg/dL Calcium 9.2 (8.4-10.2) mg/dL Magnesium 1.8 (1.6-2.6) mg/dL Total Bilirubin 0.7 (0.0-1.0) mg/dL Direct Bilirubin 0.3 (0.0-0.5) mg/dL AST 20 (5-37) U/L ALT 22 (0-40) U/L Alkaline Phosphatase 56 (39-117) U/L Troponin I High Sens (<3.5-35.0) ng/L Total Protein 7.3 (6.5-8.0) g/dL Albumin 4.4 (3.5-5.0) g/dL TSH 0.78 (0.32-4.0) uIU/mL ECG Data Attestation: I personally reviewed and interpreted this ECG as follows: ECG interpretation date: 04/22/22 ECG interpretation time: 14:04 Interpretation: EKG #1 Rate: 150s Rhythm: SVT [place]: left Normal QRS complex. ST T wave : no [place], nonspecific ST depression qTC: normal prior studies: changed from prior The study has been interpreted contemporaneously by me. EKG #2 Rate:68 Rhythm: NSR with 1st degree AVB [place]: normal Normal P waves. 1st degree Normal QRS complex. ST T wave : normal no [place] qTC: normal prior studies: no acute ischemia The study has been interpreted contemporaneously by me. . Procedures Procedure Narrative Procedure Narrative: bedside attendance failed vagal maneuvers x 2 O2 tele, pads in place, oxygen, suction 6mg adenosine rapid push no result 12mg adenosine rapid push + converted to sinus tach did well, no complications, emergent verbal consent Critical Care Time Critical Care Time Critical Care Time: Yes Total Critical Care Time: 35 Attestation: review of records, medical consult, bedside attendance, chemical cardioversion I attest to this time spent taking care of the patient Discharge Plan Discharge Clinical Impression: SVT (supraventricular tachycardia) Patient Disposition: Home, Self-Care Instructions: Supraventricular Tachycardia (ED) Additional Instructions: return to ED for any worsening symptoms or concerns please follow up with Dr. Fernando monitor your heart rate - touch base with your automotive painter helper in a week. stop medications if you become dizzy or have low BP under 100 Prescriptions: New metoprolol succinate [Toprol XL] 25 mg tablet extended release 24 hr 25 mg PO DAILY Qty: 30 0RF No Action simvastatin 20 mg tablet 20 mg PO BEDTIME Qty: 90 2RF cholecalciferol (vitamin D3) [Vitamin D3] 25 mcg (1,000 unit) capsule 25 mcg PO BEDTIME omeprazole 20 mg capsule,delayed release(DR/EC) 20 mg PO DAILY Xarelto 20 mg tablet 20 mg PO DAILY 30 Days Qty: 30 1RF Rx Instructions: start Feb 04 2022- must administer with evening meal Stand Alone Forms: Work/School Release
[2022-04-22] MEDS: 0.9 % Sodium Chloride 1,000 ML 999 ML IV (13:29)
[2022-04-22] MEDS: Adenosine 6 MG/2 ML VIAL IVPUSH (13:30)
--- NOTE | 2022-04-22 13:31 | PC.NURSE ---
Pt HR 200 SVT, Pt was given adenosine as order by the order provider. RN Anusha assisted. PT IVF are running, PT HR is 70 at the time of the assessment. Pt is connected to the telemetry and it shows NSR. PT had the EKG taken, Pt appear no apparent distress. will continue to monitor.
--- NOTE | 2022-04-22 13:34 | P.CONCA_ITS ---
History of Present Illness History of Present Illness Date of Service: 04/22/22 Requesting physician: Danyelle Reyna Chief complaint: SVT Narrative: 61-year-old gentleman who is presenting with supraventricular tachycardia. In February 2022 he was admitted to hospital after knee surgery with syncope and was diagnosed with bilateral pulmonary embolism. He had normal LV function with mild left atrial enlargement. Right ventricle was normal in size and function. Also had atrial fibrillation at that time. He has been on Xarelto for the pulmonary embolism and has seen Hematology recently and will be on anticoagulation for total 6 months. He does not have any other indication anticoagulation. Today he was in a gym exercising when he noticed that his heart rate jumped to 200 beats per minute. he came to our office and EKG performed in the office showed supraventricular tachycardia. He was sent to the emergency department where he was given 6 mg followed by 12 mg of adenosine and he reverted to sinus rhythm. He is saying he was feeling some palpitations and throat pressure. He had history of palpitations going back many years and he was told by Dr. Fernando that he potentially has supraventricular tachycardia. It has not been documented previously. Currently back in sinus them. He was on beta-xi before but he had some bradycardia although it is unclear whether he was symptomatic due to that or recent pulmonary embolism. [facility] Past Medical History Medical History Afib Anxiety Barretts esophagus GERD (gastroesophageal reflux disease) Hypercholesterolemia Obesity (BMI 30-39.9) Palpitations Pulmonary embolism Family History Family History Father No problems noted. Mother Colon cancer Sister Leukemia Brother Stomach cancer Surgical History Surgical History History of arthroscopy of left knee History of esophagogastroduodenoscopy (EGD) History of eye surgery History of knee replacement procedure of left knee History of umbilical hernia repair Hx of colonoscopy Social History Social History Household Members: Family Housing: House Alcohol intake: current Alcohol intake frequency: a few times a week Alcohol type: wine Patient Tobacco Use Status: Never used Tobacco e-Cigarette/Vaping Use: Never Used Second Hand Smoke Exposure: No Use of substances other than those prescribed or required for medical reasons: No Advance Directives: Yes Advance Directives Information Provided: Yes Advance Directives on File: No service: No Current occupational status: employed Cognitive needs: No Hearing needs: No Vision needs: No Meds Allergies Allergy/AdvReac Type Severity Reaction Status Date / Time No Known Allergies Allergy Verified 01/23/22 10:41 Active Medications: Current Medications Sodium Chloride (Ns) 1,000 mls @ 999 mls/hr IV .Q1H1M JARETH Stop: 04/22/22 14:15 Last Admin: 04/22/22 13:29 Dose: 999 mls/hr Home Medications Medication Instructions Recorded Confirmed Last Taken Type cholecalciferol (vitamin D3) 25 25 mcg PO BEDTIME 06/05/20 03/01/22 01/13/22 History mcg (1,000 unit) capsule (Vitamin D3) omeprazole 20 mg capsule,delayed 20 mg PO DAILY 01/14/22 03/01/22 01/14/22 History release Physical Exam Vital Signs: Vital Signs: Last Vital Signs Temp 98.3 F 04/22/22 13:22 Pulse 71 04/22/22 13:22 Resp 16 04/22/22 13:22 BP 118/77 04/22/22 13:22 Pulse Ox 98 04/22/22 13:22 O2 Del Method 04/22/22 13:22 BMI result Body Mass Index 30.9 GENERAL APPEARANCE: in no acute distress, pleasant. NECK: no carotid bruit, no jugular venous distention. SKIN: no suspicious lesions, warm and dry. HEART: no murmurs, regular rate and rhythm. LUNGS: clear to auscultation bilaterally. ABDOMEN: soft, nontender. EXTREMITIES: no edema. PERIPHERAL PULSES: equal. NEUROLOGIC: No gross deficits, AAO X 3 Objective Labs and Meds Result diagrams: 04/22/22 13:05 04/22/22 13:05 Lab results: Laboratory Results - last 24 hr 04/22/22 04/22/22 13:05 13:05 WBC 7.7 RBC 5.19 Hgb 15.7 Hct 45.7 MCV 88.1 MCH 30.3 MCHC 34.4 RDW 12.9 Plt Count 226 MPV 10.5 Immature Gran % (Auto) 0.3 Neut % (Auto) 51.1 Lymph % (Auto) 40.4 H [place] % (Auto) 6.9 Eos % (Auto) 0.9 Baso % (Auto) 0.4 Lymph # (Auto) 3.1 [place] # (Auto) 0.5 Eos # (Auto) 0.1 Baso # (Auto) 0.0 Abs Immat Gran (auto) 0.02 Absolute Neuts (auto) 3.9 Absolute Nucleated RBC 0.000 Nucleated RBC % (auto) 0.0 PT 16.8 H INR 1.4 H Assessment and Plan (1) SVT (supraventricular tachycardia): Status: Acute Plan Pleasant 61-year-old gentleman who is presenting with palpitations and throat discomfort and noted to be in supraventricular tachycardia. He was given adenosine in the ER and broke into sinus rhythm after that. Clinically stable currently. Advised him to restart Toprol-XL 25 mg once a day. He is on Xarelto for anticoagulation for bilateral pulmonary embolism. He should continue it for 6 months as per heme Onc recommendation. He does not have any indication for anticoagulation otherwise for his history of paroxysmal atrial fibrillation. We discussed about SVT ablation and he is interested. he will discuss further with Dr. Fernando about this. Probably would be best to have an AFib ablation at the same time but would defer this decision to Dr. Fernando. Thank you for allowing me to participate in the care of your patient. Please feel free to contact me if you have any questions. Procedures Date of Service Date of Service: 04/22/22
[2022-04-22 13:35] LABS: Alanine Aminotransferase 22 U/L (0-40); Albumin Level 4.4 g/dL (3.5-5.0); Alkaline Phosphatase 56 U/L (39-117); Anion Gap 16 (12-20); Aspartate Amino Transferase 20 U/L (5-37); Bilirubin Direct 0.3 mg/dL (0.0-0.5); Bilirubin Total 0.7 mg/dL (0.0-1.0); Blood Urea Nitrogen 25 mg/dL (9-16); Calcium 9.2 mg/dL (8.4-10.2); Carbon Dioxide 23 mmol/L (22-29); Chloride 107 mmol/L (96-108); Estimated Glomerular Filt Rate > 60; Glucose Random 107 mg/dL (60-115); Magnesium 1.8 mg/dL (1.6-2.6); Potassium 3.9 mmol/L (3.3-5.1); Sodium 142 mmol/L (135-145); Total Protein 7.3 g/dL (6.5-8.0)
[2022-04-22 13:57] LABS: TSH reflex Free T4 0.78 uIU/mL (0.32-4.0)
[2022-04-22 13:58] LABS: Troponin-I High Sensitivity < 3.5 ng/L (<3.5-35.0)
== END 2022-04-22 14:20 | disposition home or self-care (01) ==
PROVIDERS: Emergency Provider Emergency Medicine; PCP Internal Medicine
DX: I47.1 Supraventricular tachycardia (principal); R00.2 Palpitations; I48.91 Unspecified atrial fibrillation; E78.00 Pure hypercholesterolemia, unspecified; Z86.711 Personal history of pulmonary embolism; Z96.651 Presence of right artificial knee joint; Z79.01 Long term (current) use of anticoagulants; Z79.02 Long term (current) use of antithrombotics/antiplatelets; Z79.899 Other long term (current) drug therapy
CPT/HCPCS: 36415; 80048; 80076; 83735; 84443; 84484; 85025; 85610; 92960; 93005; 96361; 96374; 99284; 99285; J0153

== ENCOUNTER → 2022-05-08 08:31 | Outpatient (BNVA) | payer OTHER, SELFPAY | PROVIDERS: PCP Internal Medicine; Visit Provider Internal Medicine Cardiovascular Disease | DX: R94.31 Abnormal electrocardiogram [ECG] [EKG] (principal) | CPT/HCPCS: 93005 ==

== ENCOUNTER 2022-05-21 12:08 | Inpatient (IN) | payer OTHER, SELFPAY ==
[2022-05-21] VITALS (17 sets, daily range): BP systolic 90–121; BP diastolic 63–84; PULSE 58–141; RESP 16–20; TEMP 36.2–37.2; O2SAT 87–100; BMI 29.8; BMI 30.8
--- NOTE | ~2022-05-21 | XR_ITS ---
EXAMINATION: XR CHEST CLINICAL INFORMATION: SOB COMPARISON: None TECHNIQUE: Frontal view of the chest was obtained. FINDINGS: No significant abnormality is noted involving the heart, lungs, mediastinum, bony thorax or soft tissues. XR/XR chest 1V IMPRESSION: Unremarkable chest examination.
--- NOTE | 2022-05-21 12:43 | ECG_ITS ---
Test Reason : DYSRTHYMIA Blood Pressure : / mmHG Vent. Rate : 137 BPM Atrial Rate : 000 BPM P-R Int : 000 ms QRS Dur : 090 ms QT Int : 324 ms P-R-T Axes : 000 081 012 degrees QTc Int : 489 ms Atrial fibrillation with rapid ventricular response Nonspecific ST abnormality Low voltage QRS Abnormal ECG When compared with ECG of 22-APR-2022 13:27, Atrial fibrillation has replaced Sinus rhythm Vent. rate has increased BY 69 BPM Referred By: Generic ED Physician Electronically Signed By:MIRIAM HESTER MD
--- NOTE | 2022-05-21 12:55 | PC.NURSE ---
pt alert and oriented, skin pwd, respirations even and unlabored, pt coming to the ed with heart palpations that started last night but the pt was hopping it would go away, woke up his heart palpitations/fluttering but denies chest pain/sob. on the monitor with rapid a-fib ranging from 140-115, bp holding at this time.
--- NOTE | 2022-05-21 12:55 | ED.GENADULT ---
HPI - General Adult General Chief complaint: Arrhythmia/Palpitations Stated complaint: Afib Sent By Dr Fernando Time Seen by Provider: 05/21/22 12:55 Source: patient Mode of arrival: ambulatory Limitations: no limitations Related Data Home Medications Medication Instructions Recorded Confirmed cholecalciferol (vitamin D3) 25 25 mcg PO BEDTIME 06/05/20 03/01/22 mcg (1,000 unit) capsule (Vitamin D3) omeprazole 20 mg capsule,delayed 20 mg PO DAILY 01/14/22 03/01/22 release Previous Rx's Medication Instructions Recorded rivaroxaban 20 mg tablet (Xarelto) 20 mg PO DAILY 30 days #30 tabs 01/23/22 simvastatin 20 mg tablet 20 mg PO BEDTIME #90 tabs 04/12/22 metoprolol succinate 25 mg 25 mg PO DAILY #30 tabs 04/22/22 tablet,extended release 24 hr (Toprol XL) Allergies Allergy/AdvReac Type Severity Reaction Status Date / Time No Known Allergies Allergy Verified 01/23/22 10:41 [facility] Past Medical History Medical History Afib Anxiety Barretts esophagus GERD (gastroesophageal reflux disease) Hypercholesterolemia Obesity (BMI 30-39.9) Palpitations Pulmonary embolism Surgical History History of arthroscopy of left knee History of esophagogastroduodenoscopy (EGD) History of eye surgery History of knee replacement procedure of left knee History of umbilical hernia repair Hx of colonoscopy Family History Family History Father No problems noted. Mother Colon cancer Sister Leukemia Brother Stomach cancer Social History Social History Household Members: Family Housing: House Alcohol intake: current Alcohol intake frequency: holidays/special occasions only Alcohol type: wine Patient Tobacco Use Status: Never used Tobacco Smoked in Last 30 Days: No e-Cigarette/Vaping Use: Never Used Second Hand Smoke Exposure: No Use of substances other than those prescribed or required for medical reasons: No service: No Current occupational status: employed Cognitive needs: No Hearing needs: No Vision needs: No Physical Exam ED Vital Signs: Vital Signs - 24 hr 05/21/22 12:17 05/21/22 12:53 Temperature 97.2 F Pulse Rate 73 141 H Respiratory Rate 20 18 Blood Pressure 90/67 109/84 Pulse Oximetry 100 99 Oxygen Delivery Method Room Air Room Air BMI result Body Mass Index 29.8 Discharge Plan Discharge Prescriptions: No Action simvastatin 20 mg tablet 20 mg PO BEDTIME Qty: 90 2RF metoprolol succinate [Toprol XL] 25 mg tablet extended release 24 hr 25 mg PO DAILY Qty: 30 0RF cholecalciferol (vitamin D3) [Vitamin D3] 25 mcg (1,000 unit) capsule 25 mcg PO BEDTIME omeprazole 20 mg capsule,delayed release(DR/EC) 20 mg PO DAILY Xarelto 20 mg tablet 20 mg PO DAILY 30 Days Qty: 30 1RF Rx Instructions: start Feb 04 2022- must administer with evening meal
[2022-05-21 13:16] LABS: MANUAL DIFF FLAG NO
[2022-05-21 13:17] LABS: Basophils Percent Auto 0.3 % (0-2); Eosinophils Percent Auto 0.5 % (0-4); Hematocrit 47.1 % (42.0-52.0); Hemoglobin 15.9 g/dl (14.0-18.0); Imm Gran Abs Auto 0.01 X10*3/uL (0.00-0.03); Imm Gran Pct Auto 0.1 % (0.0-0.4); Lymphocytes Absolute Auto 2.5 X10*3/uL (1.2-4.9); Mean Corpuscular HGB Conc 33.8 g/dl (31.0-36.0); Mean Corpuscular Hemoglobin 29.9 pg (27.0-33.0); Mean Corpuscular Volume 88.5 fL (80.0-98.0); Mean Platelet Volume 10.5 fL (9.4-12.4); Monocytes Absolute Auto 0.5 X10*3/uL (0.1-1.2); Monocytes Percent Auto 7.3 % (2-11); Neutrophils Absolute Auto 4.4 x10*3/uL (2.0-8.3); Neutrophils Percent Auto 58.8 % (45-73); Platelet Count 200 X10*3/uL (160-400); Red Blood Count 5.32 X10*6/uL (4.60-5.80); Red Cell Distribution Width 12.9 % (11.0-16.0); White Blood Count 7.4 X10*3/uL (4.8-10.8)
[2022-05-21] MEDS: Metoprolol Tartrate 5 MG/5 ML VIAL IVPUSH ×3 (13:38→16:21)
[2022-05-21 13:39] LABS: Alanine Aminotransferase 27 U/L (0-40); Albumin Level 4.2 g/dL (3.5-5.0); Alkaline Phosphatase 56 U/L (39-117); Anion Gap 15 (12-20); Aspartate Amino Transferase 23 U/L (5-37); Bilirubin Total 0.8 mg/dL (0.0-1.0); Blood Urea Nitrogen 21 mg/dL (9-16); Calcium 9.4 mg/dL (8.4-10.2); Carbon Dioxide 26 mmol/L (22-29); Chloride 105 mmol/L (96-108); Creatinine Clr Calc Pharmacy 75.4; Estimated Glomerular Filt Rate 57; Glucose Random 91 mg/dL (60-115); Magnesium 2.1 mg/dL (1.6-2.6); Potassium 4.5 mmol/L (3.3-5.1); Sodium 141 mmol/L (135-145); Total Protein 7.1 g/dL (6.5-8.0)
--- NOTE | 2022-05-21 13:39 | PC.NURSE ---
verbal order by Kathryn to hang a bag of ns 1000ml do to low bp 98/67 to give metoprolo 5mg
[2022-05-21 13:46] LABS: Troponin-I High Sensitivity < 3.5 ng/L (<3.5-35.0)
[2022-05-21] MEDS: 0.9 % Sodium Chloride 1,000 ML 999 ML IV (13:50)
[2022-05-21 14:21] LABS: Thyroid Stimulating Hormone 0.83 uIU/mL (0.32-4.0)
--- NOTE | 2022-05-21 16:17 | ED_ITS ---
HPI - Arrhythmia/Palpitations General Chief Complaint: Arrhythmia/Palpitations Stated Complaint: Afib Sent By Dr Fernando Time Seen by Provider: 05/21/22 12:55 History of Present Illness HPI narrative: Patient is a 61-year-old male with a history of atrial fibrillation SVT. Patient was in the hospital for SVT and was started on Lopressor XL 25 mg. Presented today with having palpitation. This fast irregular have been happening since this morning. No chest pain or diaphoresis. No coughing no congestion or upper respiratory symptoms. No diaphoresis. Patient is from home. Patient not on blood thinners. Related Data Home Medications Medication Instructions Recorded Confirmed cholecalciferol (vitamin D3) 25 25 mcg PO BEDTIME 06/05/20 03/01/22 mcg (1,000 unit) capsule (Vitamin D3) omeprazole 20 mg capsule,delayed 20 mg PO DAILY 01/14/22 03/01/22 release Previous Rx's Medication Instructions Recorded rivaroxaban 20 mg tablet (Xarelto) 20 mg PO DAILY 30 days #30 tabs 01/23/22 simvastatin 20 mg tablet 20 mg PO BEDTIME #90 tabs 04/12/22 metoprolol succinate 25 mg 25 mg PO DAILY #30 tabs 04/22/22 tablet,extended release 24 hr (Toprol XL) Allergies Allergy/AdvReac Type Severity Reaction Status Date / Time No Known Allergies Allergy Verified 01/23/22 10:41 Review of Systems Review of Systems: Positive palpitation. Positive generalized malaise. Yes all other systems are reviewed and are negative PMFSH Past Medical History Attestation statement: The following information was validated with the patient. Medical History Afib Anxiety Barretts esophagus GERD (gastroesophageal reflux disease) Hypercholesterolemia Obesity (BMI 30-39.9) Palpitations Pulmonary embolism Surgical History History of arthroscopy of left knee History of esophagogastroduodenoscopy (EGD) History of eye surgery History of knee replacement procedure of left knee History of umbilical hernia repair Hx of colonoscopy Family History Family History Father No problems noted. Mother Colon cancer Sister Leukemia Brother Stomach cancer Social History Social History Household Members: Family Housing: House Alcohol intake: current Alcohol intake frequency: holidays/special occasions only Alcohol type: wine Patient Tobacco Use Status: Never used Tobacco Smoked in Last 30 Days: No e-Cigarette/Vaping Use: Never Used Second Hand Smoke Exposure: No Use of substances other than those prescribed or required for medical reasons: No Advance Directives: No service: No Current occupational status: employed Cognitive needs: No Hearing needs: No Vision needs: No Physical Exam Vital Signs: Vital Signs: Last Vital Signs Temp 97.2 F 05/21/22 12:17 Pulse 119 H 05/21/22 15:14 Resp 18 05/21/22 14:44 BP 121/65 05/21/22 15:14 Pulse Ox 96 05/21/22 14:44 O2 Del Method 05/21/22 14:44 BMI result Body Mass Index 29.8 Appearance: Alert. Oriented X3. No acute distress. Eyes: Pupils equal, round and reactive to light. ENT: Pharynx normal. Neck: Normal inspection. Neck supple. No lymph nodes noted. No crepitus CVS: Irregularly irregular Respiratory: No respiratory distress. Breath sounds normal. No Wheezing. No rales Abdomen: Soft and nontender. No rigidity. No distention. good BS x4 Skin: Skin warm and dry. Normal skin color. Normal skin turgor. Extremities: No lower extremity edema. Neurovascular intact to all extremities. No Lacerations. No Rash Neuro: Oriented X 3. No motor deficit. No sensory deficit. Moving all extermities. No slurred speech Medications Administered Discontinued Medications Generic Name Dose Route Start Last Admin Trade Name Freq PRN Reason Stop Dose Admin Sodium Chloride 1,000 mls @ 999 mls/hr 05/21/22 14:15 05/21/22 15:06 Ns IV 05/21/22 15:15 Infused .Q1H1M JARETH Infusion Metoprolol Tartrate 5 mg 05/21/22 13:23 05/21/22 13:38 Metoprolol Tartrate 5 Mg/5 Ml Vial IVPUSH 05/21/22 13:24 5 mg ONCE ONE Administration Metoprolol Tartrate 5 mg 05/21/22 14:55 05/21/22 15:08 Metoprolol Tartrate 5 Mg/5 Ml Vial IVPUSH 05/21/22 14:56 5 mg ONCE ONE Administration MDM - Arrhythmia/Palpitations MDM Narrative Medical decision making narrative: Patient's EKG showed an atrial fibrillation pattern heart rate is in the 130s. Given Lopressor x3 doses. Heart rate is still hovering around 110. Case discussed with Cardiology. Wants patient to be started on digoxin. Will most likely get a THERON tomorrow. Subsequently patient may be cardioverted. This was relayed to patient and with the hospitalist team. Patient is awaiting admission. Troponin was negative. TSH is normal. Differential Diagnosis Differential diagnosis: Likely artial fibrillation Medical Records Attestation: I reviewed the patient's medical records. Lab Data Attestation: I reviewed the patient's lab results. Result diagrams: 05/21/22 13:07 05/21/22 13:07 Labs: Lab Results 05/21/22 05/21/22 05/21/22 Range/Units 13:07 13:07 13:07 WBC 7.4 (4.8-10.8) X10*3/uL RBC 5.32 (4.60-5.80) X10*6/uL Hgb 15.9 (14.0-18.0) g/dl Hct 47.1 (42.0-52.0) % MCV 88.5 (80.0-98.0) fL MCH 29.9 (27.0-33.0) pg MCHC 33.8 (31.0-36.0) g/dl RDW 12.9 (11.0-16.0) % Plt Count 200 (160-400) X10*3/uL MPV 10.5 (9.4-12.4) fL Immature Gran % (Auto) 0.1 (0.0-0.4) % Neut % (Auto) 58.8 (45-73) % Lymph % (Auto) 33.0 (20-40) % [place] % (Auto) 7.3 (2-11) % Eos % (Auto) 0.5 (0-4) % Baso % (Auto) 0.3 (0-2) % Lymph # (Auto) 2.5 (1.2-4.9) X10*3/uL [place] # (Auto) 0.5 (0.1-1.2) X10*3/uL Eos # (Auto) 0.0 (0.0-0.4) X10*3/uL Baso # (Auto) 0.0 (0.0-0.2) X10*3/uL Abs Immat Gran (auto) 0.01 (0.00-0.03) X10*3/uL Absolute Neuts (auto) 4.4 (2.0-8.3) x10*3/uL Absolute Nucleated RBC 0.000 (0.0-0.012) X10*3/uL Nucleated RBC % (auto) 0.0 (0.0-0.2) /100WBC Sodium 141 (135-145) mmol/L Potassium 4.5 (3.3-5.1) mmol/L Chloride 105 (96-108) mmol/L Carbon Dioxide 26 (22-29) mmol/L Anion Gap 15 (12-20) BUN 21 H (9-16) mg/dL Creatinine 1.29 (0.5-1.4) mg/dL Estim Creat Clear Calc 75.4 Estimated GFR 57 Random Glucose 91 (60-115) mg/dL Calcium 9.4 (8.4-10.2) mg/dL Magnesium 2.1 (1.6-2.6) mg/dL Total Bilirubin 0.8 (0.0-1.0) mg/dL AST 23 (5-37) U/L ALT 27 (0-40) U/L Alkaline Phosphatase 56 (39-117) U/L Troponin I High Sens < 3.5 (<3.5-35.0) ng/L Total Protein 7.1 (6.5-8.0) g/dL Albumin 4.2 (3.5-5.0) g/dL TSH 0.83 (0.32-4.0) uIU/mL Critical Care Time Critical Care Time Critical Care Time: Yes Total Critical Care Time: 40 Attestation: I have personally provided 40 minutes of critical care time exclusive of time spent on separately billable procedures. Time includes review of lab data, radiology results, discussion with consultants, and monitoring for potential decompensation. Interventions were performed as documented above Discharge Plan Discharge Prescriptions: No Action simvastatin 20 mg tablet 20 mg PO BEDTIME Qty: 90 2RF metoprolol succinate [Toprol XL] 25 mg tablet extended release 24 hr 25 mg PO DAILY Qty: 30 0RF cholecalciferol (vitamin D3) [Vitamin D3] 25 mcg (1,000 unit) capsule 25 mcg PO BEDTIME omeprazole 20 mg capsule,delayed release(DR/EC) 20 mg PO DAILY Xarelto 20 mg tablet 20 mg PO DAILY 30 Days Qty: 30 1RF Rx Instructions: start Feb 04 2022- must administer with evening meal
[2022-05-21] MEDS: Digoxin 0.5 MG/2 ML AMPUL 0.25 MG IVPUSH ×2 (16:21→21:38)
--- NOTE | 2022-05-21 16:46 | PM.IMHP ---
History of Present Illness Date of Service: 05/21/22 Attending physician on admission: Tra Merchant Chief Complaint: Palpitations 61-year-old gentleman with past medical history significant for supraventricular tachycardia,, history of syncope, and bilateral pulmonary embolism diagnosed in February 2022 since then patient is on anticoagulation with Xarelto for total 6 months patient also history of prior atrial fibrillation,, in April patient had an episode of SVT that responded to adenosine, and patient was subsequently placed on Toprol-XL 25 mg daily but due to low blood pressures patient has not been taking Toprol XL daily, 2 nights ago patient woke up in the middle of the night with chest fluttering without associated chest pain, diaphoresis or shortness of breath patient portable monitor and storage bin tender showed irregular heartbeat the patient continued to have rapid heartbeat Friday night it showed that patient has atrial fibrillation therefore this a.m. 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 Stratton and was noted to be in atrial fibrillation with RVR therefore referred to emergency room for evaluation and treatment, in the ER EKG showed AFib with RVR rate of 130-140, BP 88/60 patient treated with 3 dosages of metoprolol 5 mg IV push but he remained in AFib therefore patient received 1 dose of digoxin 0.25 mg, at present patient blood pressure is 94/71, patient is being admitted to [facility] for further treatment and monitoring likely will need cardioversion due to limitation of hypotension unable to tolerate rate limiting medications Review of Systems 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 Mother Colon cancer Sister Leukemia Brother Stomach cancer Surgical History History of arthroscopy of left knee History of esophagogastroduodenoscopy (EGD) History of eye surgery History of knee replacement procedure of left knee History of umbilical hernia repair Hx of colonoscopy Social History Household Members: Spouse Housing: House Do you presently have visiting nurse or other home services: No Alcohol intake: current Alcohol intake frequency: holidays/special occasions only Alcohol type: wine Patient Tobacco Use Status: Never used Tobacco Smoked in Last 30 Days: No e-Cigarette/Vaping Use: Never Used Second Hand Smoke Exposure: No Use of substances other than those prescribed or required for medical reasons: No Currently Displaying Signs/Symptoms of Drug Intoxication Withdrawal: No Have you been hit, kicked, punched, or otherwise hurt by someone within the past year? If so, by whom?: No Do you feel safe in your current relationship?: Yes Is there a partner from a previous relationship who is making you feel unsafe now?: No Are you made to feel afraid or neglected: No Advance Directives: No Advance Directives on File: No Do you have thoughts of harming others: None Do you have a plan to hurt others: No Plan Recently lost weight without trying: No Nutrition Risks: No Nutritional Risk Poor oral hygiene: No service: No Current occupational status: employed Cognitive needs: No Hearing needs: No Vision needs: No Meds Allergies Allergy/AdvReac Type Severity Reaction Status Date / Time No Known Allergies Allergy Verified 01/23/22 10:41 Active Medications: Current Medications Acetaminophen (Acetaminophen 325 Mg Tablet) 650 mg PO Q6H PRN PRN Reason: Pain, Mild (Pain Scale 1-3) Atorvastatin Calcium (Atorvastatin Calcium 10 Mg Tablet) 10 mg PO BEDTIME [facility] Digoxin (Digoxin 0.5 Mg/2 Ml Ampul) 0.25 mg IVPUSH Q6H [facility] Stop: 05/22/22 04:01 Melatonin (Melatonin 3 Mg Tablet) 3 mg PO BEDTIME PRN PRN Reason: Insomnia Ondansetron HCl (Ondansetron Hcl 4 Mg/2 Ml Vial) 4 mg IVPUSH Q8H PRN PRN Reason: Nausea and Vomiting Pharmacy Consult (Consult Rx Perform Med Rec) 1 each MISCELLANE ONCE PRN PRN Reason: Consult order Pharmacy Consult (Consult Rx Perform Med Rec) 1 each MISCELLANE ONCE PRN PRN Reason: Consult order Sodium Chloride (0.9 % Sodium Chloride Flush 3 Ml Syringe) [facility] Medications Medication Instructions Recorded Confirmed Last Taken Type cholecalciferol (vitamin D3) 25 25 mcg PO BEDTIME 06/05/20 05/21/22 05/20/22 History mcg (1,000 unit) capsule (Vitamin D3) omeprazole 20 mg capsule,delayed 20 mg PO DAILY 01/14/22 05/21/22 05/21/22 History release metoprolol succinate 25 mg 25 mg PO DAILY@1800 05/21/22 05/21/22 05/20/22 History tablet,extended release 24 hr (Toprol XL) rivaroxaban 20 mg tablet (Xarelto) 20 mg PO DAILY@1800 05/21/22 05/21/22 05/20/22 History Physical Exam Vital Signs and Narrative: Vital Signs: Last Vital Signs Temp 97.2 F 05/21/22 12:17 Pulse 119 H 05/21/22 16:26 Resp 18 05/21/22 16:26 BP 94/71 05/21/22 16:26 Pulse Ox 96 05/21/22 14:44 O2 Del Method 05/21/22 16:20 BMI result Body Mass Index 29.8 Const: Other: General awake alert x3, resting comfortably in no acute distress. Anicteric sclera Neck supple no JVD. CVS irregularly irregular Respiratory lungs clear to auscultation, no respiratory distress, no wheeze, no rhonchi. Gastrointestinal abdomen soft, nontender, bowel sounds audible, no guarding , no rigidity. Extremities no edema. Neuro nonfocal . Skin no rash Psych appropriate affect Results Labs CBC and Chem 7: 05/21/22 13:07 05/21/22 13:07 Labs: Laboratory Results - last 24 hr 05/21/22 05/21/22 05/21/22 13:07 13:07 13:07 MCV 88.5 MCH 29.9 MCHC 33.8 RDW 12.9 Plt Count 200 MPV 10.5 Immature Gran % (Auto) 0.1 Neut % (Auto) 58.8 Lymph % (Auto) 33.0 [place] % (Auto) 7.3 Eos % (Auto) 0.5 Baso % (Auto) 0.3 Lymph # (Auto) 2.5 [place] # (Auto) 0.5 Eos # (Auto) 0.0 Baso # (Auto) 0.0 Abs Immat Gran (auto) 0.01 Absolute Neuts (auto) 4.4 Absolute Nucleated RBC 0.000 Nucleated RBC % (auto) 0.0 Anion Gap 15 Estim Creat Clear Calc 75.4 Estimated GFR 57 Random Glucose 91 Calcium 9.4 Magnesium 2.1 Total Bilirubin 0.8 AST 23 ALT 27 Alkaline Phosphatase 56 Troponin I High Sens < 3.5 Total Protein 7.1 Albumin 4.2 TSH 0.83 Imaging Radiologist's Impressions: Impressions Chest X-Ray 05/21/22 13:54 IMPRESSION: Unremarkable chest examination. Assessment and Plan (1) GERD (gastroesophageal reflux disease): Status: Acute (2) Hypercholesterolemia: Status: Acute (3) Atrial fibrillation with rapid ventricular response: Status: Acute Plan 61-year-old gentleman with past medical history significant for SVT, history of prior episode of atrial fibrillation presented to [facility] with symptoms of fluttering with no associated chest discomfort no diaphoresis no lightheadedness or dizziness patient diagnosed to have atrial fibrillation with RVR and low blood pressures being admitted to [facility] for continued monitoring and treatment. Atrial fibrillation with RVR Patient treated with IV Lopressor 5 mg x 3 noted to have drop in blood pressure and no significant change in ventricular rate, therefore will digitalize patient with 0.25 mg digoxin IV x4 doses Echo in January 2022 showed EF 55-60%, indeterminate diastolic function, normal right ventricular size and function, patient had mildly dilated left atrium no evidence of interatrial shunt TSH 0.83, normal potassium and magnesium Consult Cardiology for possible cardioversion at a.m. for symptomatic AFib with hypotension will keep patient NPO history of bilateral PE diagnosed in January 2022 on Xarelto, cause of thromboembolism likely related to knee surgery in November of 2021, thrombophilia workup negative in the past, recommended to have 6 months of anticoagulation as per oncology,. Hyperlipidemia place on Lipitor 10 mg at home on Zocor 20 mg GERD continue PPI DVT prophylaxis on Xarelto In my clinical judgment patient will need two night inpatient stay due to atrial fibrillation with RVR associated with hypotension will likely need cardioversion and close monitoring in telemetry. Quality Stroke Does the patient have a stroke diagnosis?: No VTE Prior VTE?: No VTE Risk Level:: Medical - moderate - high VTE Device Contraindication: Treatment Not Indicated VTE Drug Contraindication: N/A - Med Ordered
--- NOTE | 2022-05-21 17:04 | PHA.MEDREC ---
MED REC COMPLETE, NO ISSUES Pharmacy Consult ? Medication Reconciliation Pharmacy has completed the medication reconciliation.
--- NOTE | 2022-05-21 17:39 | PC.NURSE ---
pt has a sun butter and jelly sandwich ,a valery parth ,pudding and banana for snack .
[2022-05-21 17:54] LABS: COVID-19 Test Negative (Negative); IDNOW Serial# 16C4AD1C
--- NOTE | 2022-05-21 19:58 | PC.NURSE ---
2000 rounding done ,pt ate 100 % of dinner ,drank 600 ml fluids ,pt at bedside ,pt watching television ,call owens within reach .
[2022-05-21] MEDS: Atorvastatin Calcium 10 MG TABLET PO (21:38)
[2022-05-21] MEDS: 0.9 % Sodium Chloride Flush 3 ML SYRINGE IVFLUSH (21:38)
--- NOTE | 2022-05-22 | ECG_ITS ---
Test Reason : F/U ON MULTAG Blood Pressure : / mmHG Vent. Rate : 062 BPM Atrial Rate : 062 BPM P-R Int : 216 ms QRS Dur : 098 ms QT Int : 414 ms P-R-T Axes : 032 -26 002 degrees QTc Int : 420 ms Sinus rhythm with 1st degree A-V block Low voltage QRS RSR' or QR pattern in V1 suggests right ventricular conduction delay Nonspecific T wave abnormality Abnormal ECG When compared with ECG of 22-MAY-2022 10:59, No significant change was found Referred By: Tra Merchant Electronically Signed By:MIRIAM HESTER MD
--- NOTE | 2022-05-22 | ECG_ITS ---
Test Reason : POST CARDIOVERTED Blood Pressure : / mmHG Vent. Rate : 064 BPM Atrial Rate : 064 BPM P-R Int : 218 ms QRS Dur : 098 ms QT Int : 420 ms P-R-T Axes : 025 -28 008 degrees QTc Int : 433 ms Sinus rhythm with 1st degree A-V block Low voltage QRS Nonspecific T wave abnormality Anteroseptal leads Abnormal ECG When compared with ECG of 21-MAY-2022 12:48, Sinus rhythm has replaced Atrial fibrillation Vent. rate has decreased BY 73 BPM T wave inversion more evident in Anteroseptal leads Referred By: Sajan Fernando Electronically Signed By:MIRIAM HESTER MD
[2022-05-22 04:00] VITALS: BP 100/74; PULSE 118; RESP 20; TEMP 37.1; O2SAT 96
[2022-05-22] MEDS: Digoxin 0.5 MG/2 ML AMPUL 0.25 MG IVPUSH (04:13)
[2022-05-22 07:53] VITALS: BP 103/60; PULSE 56; RESP 18; TEMP 36.2; O2SAT 95
[2022-05-22] MEDS: 0.9 % Sodium Chloride Flush 3 ML SYRINGE IVFLUSH (08:14)
[2022-05-22] MEDS: Omeprazole 20 MG CAPSULE.DR PO (08:14)
--- NOTE | 2022-05-22 10:02 | MHC.CM.PN ---
met edgar erickson and his ,pt is independent had no previous services , and will not need servies when dcd ..pt is covid vax x 3 has a ride home
--- NOTE | 2022-05-22 10:31 | P.CONCA_ITS ---
History of Present Illness History of Present Illness Date of Service: 05/22/22 Requesting physician: Tra Merchant Consult reason: atrial fibrillation Chief complaint: atrial fibrillation with RVR Narrative: I was consulted to see Praful in cardiology consultation today for management of atrial fibrillation. Praful is a very pleasant 61-year-old got with prior history of bilateral pulmonary embolism causing atrial fibrillation subsequently having SVT. She could not tolerate metoprolol therapy due to low blood pressures as bradycardia. He has been on oral anticoagulation with Xarelto but may have missed couple of dose in the last couple of weeks. He came to the office yesterday because he was feeling symptoms of irregular heartbeat and rapid heart rate as well as feeling fatigued. If he started almost not to come to the office however ended up going the office and was noted to be in atrial fibrillation rapid ventricular response a blood pressure of 88. Cousin his low blood pressure intolerance in the past with rapid atrial fibrillation we discussed about admitting him to the hospital with goal for THERON guided cardioversion. However this morning converted back to sinus rhythm. He has received 1st dose of Multaq this morning. He has been taking his oral anticoagulant therapy. He is feeling well. He has no chest pain or shortness of breath just feels fatigue and tired when he is in atrial fibrillation. Denies any other symptoms. No lightheadedness, syncope. Review of Systems Constitutional: Constitutional: Reports no additional constitutional complaints Eyes: Eyes: Reports no additional eye complaints Cardiovascular: Cardiovascular: Denies chest pain, Reports rapid heart rate, Denies lightheadedness, Denies Loss of Consciousness, Reports palpitations and Denies dyspnea Respiratory: Respiratory: Reports no additional respiratory complaints and Denies dyspnea Gastrointestinal: Gastrointestinal: Reports no additional gastrointestinal complaints Genitourinary: Genitourinary: Reports no additional male genitourinary complaints Musculoskeletal: Musculoskeletal: Reports no additional musculoskeletal complaints Integumentary/Breasts: Skin/Breast: Reports system reviewed and no additional complaints, except as docu Neurologic: Reports system reviewed and no additional complaints, except as documented Psychiatric: Psychiatric: Reports no additional psychiatric complaints Endocrine: Endocrine: Reports no additional endocrine complaints and Reports palpitations Hematologic/Lymphatic: Hematologic/Lymphatic: Reports no additional h ematologic/lymphatic complaints Allergic/Immunologic: Allergic/Immunologic: Reports no additional allergic/immunologic complaints [facility] Past Medical History Medical History Afib Anxiety Barretts esophagus GERD (gastroesophageal reflux disease) Hypercholesterolemia Obesity (BMI 30-39.9) Palpitations Pulmonary embolism Family History Family History Father No problems noted. Mother Colon cancer Sister Leukemia Brother Stomach cancer Surgical History Surgical History History of arthroscopy of left knee History of esophagogastroduodenoscopy (EGD) History of eye surgery History of knee replacement procedure of left knee History of umbilical hernia repair Hx of colonoscopy Social History Social History Household Members: Spouse Housing: House Do you presently have visiting nurse or other home services: No Alcohol intake: current Alcohol intake frequency: holidays/special occasions only Alcohol type: wine Patient Tobacco Use Status: Never used Tobacco Smoked in Last 30 Days: No e-Cigarette/Vaping Use: Never Used Second Hand Smoke Exposure: No Use of substances other than those prescribed or required for medical reasons: No Currently Displaying Signs/Symptoms of Drug Intoxication Withdrawal: No Have you been hit, kicked, punched, or otherwise hurt by someone within the past year? If so, by whom?: No Do you feel safe in your current relationship?: Yes Is there a partner from a previous relationship who is making you feel unsafe now?: No Are you made to feel afraid or neglected: No Advance Directives: No Advance Directives on File: No Do you have thoughts of harming others: None Do you have a plan to hurt others: No Plan Recently lost weight without trying: No Nutrition Risks: No Nutritional Risk Poor oral hygiene: No service: No Current occupational status: employed Cognitive needs: No Hearing needs: No Vision needs: No Meds Allergies Allergy/AdvReac Type Severity Reaction Status Date / Time No Known Allergies Allergy Verified 01/23/22 10:41 Active Medications: Current Medications Acetaminophen (Acetaminophen 325 Mg Tablet) 650 mg PO Q6H PRN PRN Reason: Pain, Mild (Pain Scale 1-3) Atorvastatin Calcium (Atorvastatin Calcium 10 Mg Tablet) 10 mg PO BEDTIME JARETH Last Admin: 05/21/22 21:38 Dose: 10 mg Dronedarone (Dronedarone Hcl 400 Mg Tablet) 400 mg PO BID [facility] Melatonin (Melatonin 3 Mg Tablet) 3 mg PO BEDTIME PRN PRN Reason: Insomnia Omeprazole (Omeprazole 20 Mg Capsule.) 20 mg PO DAILY [facility] Last Admin: 05/22/22 08:14 Dose: 20 mg Ondansetron HCl (Ondansetron Hcl 4 Mg/2 Ml Vial) 4 mg IVPUSH Q8H PRN PRN Reason: Nausea and Vomiting Pharmacy Consult (Consult Rx Perform Med Rec) 1 each MISCELLANE ONCE PRN PRN Reason: Consult order Pharmacy Consult (Consult Rx Perform Med Rec) 1 each MISCELLANE ONCE PRN PRN Reason: Consult order Rivaroxaban (Rivaroxaban 20 Mg Tablet) 20 mg PO DAILY@1800 [facility] Sodium Chloride (0.9 % Sodium Chloride Flush 3 Ml Syringe) 3 ml IVFLUSH QSHIFT [facility] Last Admin: 05/22/22 08:14 Dose: 3 ml Home Medications Medication Instructions Recorded Confirmed Last Taken Type cholecalciferol (vitamin D3) 25 25 mcg PO BEDTIME 06/05/20 05/21/22 05/20/22 History mcg (1,000 unit) capsule (Vitamin D3) omeprazole 20 mg capsule,delayed 20 mg PO DAILY 01/14/22 05/21/22 05/21/22 History release metoprolol succinate 25 mg 25 mg PO DAILY@1800 05/21/22 05/21/22 05/20/22 History tablet,extended release 24 hr (Toprol XL) rivaroxaban 20 mg tablet (Xarelto) 20 mg PO DAILY@1800 05/21/22 05/21/22 05/20/22 History Physical Exam Vital Signs: Vital Signs: Last Vital Signs Temp 97.1 F 05/22/22 07:53 Pulse 56 05/22/22 07:53 Resp 18 05/22/22 07:53 BP 103/60 05/22/22 07:53 Pulse Ox 95 05/22/22 07:53 O2 Del Method 05/22/22 07:53 BMI result Body Mass Index 30.8 Const: General: cooperative, comfortable, no acute distress, well developed, alert, awake and Physically active Nutritional Appearance: well nourished and overweight Orientation/consciousness: patient oriented x3 Limitations: no limitations HEENT: Head: Yes normocephalic and Yes atraumatic Neck: Neck: Yes trachea midline, Yes supple and Yes no JVD Resp: Effort & Inspection: normal respiratory effort Auscultation: clear to auscultation bilaterally Cardio: Jugular venous distension: no JVD Palpation: normal PMI Rate: regular rate Rhythm: regular rhythm Heart sounds: S1 normal heart sound present, S2 normal heart sound present, no click, no gallops, no murmurs and no rubs GI: Auscultation: normal bowel sounds Skin: General skin exam: no rashes or lesions noted Neuro: General: patient oriented x3 and no focal motor deficits Extrem: General: Yes no clubbing, cyanosis or edema Objective Labs and Meds Result diagrams: 05/21/22 13:07 05/21/22 13:07 Lab results: Laboratory Results - last 24 hr 05/21/22 05/21/22 05/21/22 13:07 13:07 13:07 WBC 7.4 RBC 5.32 Hgb 15.9 Hct 47.1 MCV 88.5 MCH 29.9 MCHC 33.8 RDW 12.9 Plt Count 200 MPV 10.5 Immature Gran % (Auto) 0.1 Neut % (Auto) 58.8 Lymph % (Auto) 33.0 Wilkes % (Auto) 7.3 Eos % (Auto) 0.5 Baso % (Auto) 0.3 Lymph # (Auto) 2.5 Wilkes # (Auto) 0.5 Eos # (Auto) 0.0 Baso # (Auto) 0.0 Abs Immat Gran (auto) 0.01 Absolute Neuts (auto) 4.4 Absolute Nucleated RBC 0.000 Nucleated RBC % (auto) 0.0 Sodium 141 Potassium 4.5 Chloride 105 Carbon Dioxide 26 Anion Gap 15 BUN 21 H Creatinine 1.29 Estim Creat Clear Calc 75.4 Estimated GFR 57 Random Glucose 91 Calcium 9.4 Magnesium 2.1 Total Bilirubin 0.8 AST 23 ALT 27 Alkaline Phosphatase 56 Troponin I High Sens < 3.5 Total Protein 7.1 Albumin 4.2 TSH 0.83 COVID-19 (DRE) COVID-19 Clin Com 05/21/22 17:33 WBC RBC Hgb Hct MCV MCH MCHC RDW Plt Count MPV Immature Gran % (Auto) Neut % (Auto) Lymph % (Auto) Wilkes % (Auto) Eos % (Auto) Baso % (Auto) Lymph # (Auto) Wilkes # (Auto) Eos # (Auto) Baso # (Auto) Abs Immat Gran (auto) Absolute Neuts (auto) Absolute Nucleated RBC Nucleated RBC % (auto) Sodium Potassium Chloride Carbon Dioxide Anion Gap BUN Creatinine Estim Creat Clear Calc Estimated GFR Random Glucose Calcium Magnesium Total Bilirubin AST ALT Alkaline Phosphatase Troponin I High Sens Total Protein Albumin TSH COVID-19 (DRE) Negative COVID-19 Clin Com See Note Imaging Radiologist's impression: Impressions Chest X-Ray 05/21/22 13:54 IMPRESSION: Unremarkable chest examination. Assessment and Plan (1) Paroxysmal atrial fibrillation: Status: Acute Symptomatic paroxysmal atrial fibrillation this middle-aged man with no obvious triggers this time. The passes trigger was pulmonary embolism. Appears to have both atrial fibrillation and SVT. We discussed about management of this condition. He has the appointment coming up in July with electrophysiology for SVT ablation. Her most likely require discussion for both SVT as well as atrial fibrillation ablation. Will start him on Multaq 400 mg b.i.d. as he has not tolerated metoprolol in the past due to symptoms as well as low blood pressure. Idea as to prevent recurrent atrial fibrillation hospitalization. He understands agrees. First dose has been given and will follow-up EKG in couple of hours and then can discharge home later today. Will follow up in the office in 4 weeks time after Holter monitor. Signs and symptoms of atrial fibrillation with discussed. Avoidance of stimulants such as caffeine and excessive alcohol use was discussed understand agree. No restriction to overall activity level. Continue full oral anticoagulation without interruption with Xarelto. This was discussed with him in details. Will follow up in the clinic in 4 weeks time, sooner p.r.n.. Thank you for allowing me to partake in his care Procedures Date of Service Date of Service: 05/22/22
[2022-05-22] MEDS: Dronedarone HCl 400 MG TABLET PO (10:49)
[2022-05-22 11:54] VITALS: BP 97/57; PULSE 64; RESP 20; TEMP 36.4; O2SAT 94
--- NOTE | 2022-05-22 13:50 | PM.DS ---
DS: Providers Provider Date of Service: 05/22/22 Date of admission: 05/21/22 16:38 Primary care physician: Ninfa Pena MD Consults: 05/21/22 16:45 Consult to Cardiology Routine Consulting Provider: Sajan Fernando Reason for consultation: atfib with rvr Has provider been notified: Yes DS: Diagnosis Discharge Diagnosis (1) GERD (gastroesophageal reflux disease): Status: Acute (2) Hypercholesterolemia: Status: Acute (3) Atrial fibrillation with rapid ventricular response: Status: Acute DS: Summary Hospital Course Hospital Course: history of presenting illness Date of Service: 05/21/22 Attending physician on admission: Tra Merchant Chief Complaint: Palpitations 61-year-old gentleman with past medical history significant for supraventricular tachycardia,, history of syncope, and bilateral pulmonary embolism diagnosed in February 2022 patient is on anticoagulation with Xarelto for total 6 months patient also history of prior atrial fibrillation,, in April patient had an episode of SVT that responded to adenosine, and patient was subsequently placed on Toprol-XL 25 mg daily but due to low blood pressures patient has not been taking Toprol XL regularly, 2 nights ago patient woke up in the middle of the night with chest fluttering without associated chest pain, diaphoresis or shortness of breath, patient portable phototypesetting equipment monitor showed irregular heartbeat, next day patient continued to have rapid heartbeat, Friday night it showed that patient has atrial fibrillation therefore this a.m. 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 and was noted to be in atrial fibrillation with RVR therefore referred to emergency room for evaluation and treatment, in the ER EKG showed AFib with RVR rate of 130-140, BP 88/60 patient treated with 3 dosages of metoprolol 5 mg IV push but he remained in AFib therefore patient received 1 dose of digoxin 0.25 mg, at present patient blood pressure is 94/71, patient is being admitted to [facility] for further treatment and monitoring likely will need cardioversion due to limitation of hypotension unable to tolerate rate limiting medications hospital course 61-year-old gentleman with past medical history significant for SVT, history of prior episode of atrial fibrillation presented to [facility] with symptoms of fluttering with no associated chest discomfort no diaphoresis no lightheadedness or dizziness patient diagnosed to have atrial fibrillation with RVR and low blood pressures being admitted to [facility] for continued monitoring and treatment. Atrial fibrillation with RVR patient admitted to telemetry unit, received 3 dosages of IV digoxin and converted to normal sinus rhythm this morning patient remained asymptomatic with no chest pain no diaphoresis, blood pressure remains stable low normal patient evaluated by doctors and started on Multaq 400 mg by mouth b.i.d., will discontinue Toprol-XL due to low blood pressures recommend to continue Xarelto. Echo in January 2022 showed EF 55-60%, indeterminate diastolic function, normal right ventricular size and function, patient had mildly dilated left atrium no evidence of interatrial shunt TSH 0.83, normal potassium and magnesium recommend to have outpatient follow-up with Dr. Stratton in 4 weeks history of bilateral PE diagnosed in January 2022 on Xarelto, cause of thromboembolism likely related to knee surgery in November of 2021, thrombophilia workup negative in the past, recommended to have 6 months of anticoagulation as per? oncology,. Hyperlipidemia continue Zocor 20 mg follow CPK, LFTs and lipid profile in 1-2 months since multaq can increase level of Zocor. GERD continue PPI Time Spent with Patient Time attestation: Total time spent providing and/or coordinating discharge services: Discharge coordination time: Greater than 30 minutes Quality: Safe Use of Opioids Does Pt have an Active Cancer Diagnosis on the Problem List?: No Quality: Stroke Does the patient have a stroke diagnosis?: No Physical Exam Vital Signs: Vital Signs: Last Vital Signs Temp 97.5 F 05/22/22 11:54 Pulse 64 05/22/22 11:54 Resp 20 05/22/22 11:54 BP 97/57 L 05/22/22 11:54 Pulse Ox 94 05/22/22 11:54 O2 Del Method 05/22/22 11:54 BMI result Body Mass Index 30.8 Const: Other: General awake alert x3, resting comfortably in no acute distress.? Anicteric sclera Neck? supple no JVD. CVS? regular rate rhythm no murmurs Respiratory lungs clear to auscultation, no respiratory distress, no wheeze, no rhonchi. Gastrointestinal abdomen soft, nontender, bowel sounds audible, no guarding , no rigidity. Extremities no edema. Neuro nonfocal . Skin no rash Psych appropriate affect DS: Data Data Completed and Pending Labs on day of discharge: Laboratory Results - last 24 hr 05/21/22 05/21/22 13:07 17:33 TSH 0.83 COVID-19 (DRE) Negative COVID-19 Clin Com See Note Discharge Plan Discharge Anticipated Discharge Date/Time: 05/22/22 13:40 Patient Disposition: Home, Self-Care Discharge Diagnosis: atrial fibrillation with RVR Referrals: Po,Ninfa Nelson MD [Primary Care Provider] - 1 Week Discharge Medications: New Multaq 400 mg Tablet 400 mg PO BID Qty: 60 0RF Continued simvastatin 20 mg tablet 20 mg PO BEDTIME Qty: 90 2RF Xarelto 20 mg tablet 20 mg PO DAILY@1800 Rx Instructions: start Feb 04 2022- must administer with evening meal cholecalciferol (vitamin D3) [Vitamin D3] 25 mcg (1,000 unit) capsule 25 mcg PO BEDTIME omeprazole 20 mg capsule,delayed release(DR/EC) 20 mg PO DAILY Discontinued metoprolol succinate [Toprol XL] 25 mg tablet extended release 24 hr 25 mg PO DAILY@1800 Discharge Orders: Discharge Order (Routine); Ordered 05/22/22 Ordered By: Tra Merchant Diet: Low fat, low cholesterol Activity on Discharge: As tolerated Stand Alone Forms: Patient Portal Discharge page Care Plan Goals: converted to normal sinus rhythm take Multaq 400 mg by mouth twice daily, stop Metoprolol Multaq an increase dose of Zocor follow CPK and lipid profile as outpatient call PCP if noted to have muscle aches or pain Health Concerns: atrial fibrillation/ SVT continue all medications as before Plan of Treatment: outpatient follow-up with Dr. Fernando call to make an appointment in 4 weeks Assessment: as above
--- NOTE | 2022-05-22 14:21 | MHC.CM.PN ---
npt dcd home no skilled servceis ordred by
== END 2022-05-22 14:45 | disposition home or self-care (01) | DRG 201 ==
LOC: HO.ED 16:25 → HO.EDOVER 16:42 → HO.IMC 19:47
PROVIDERS: Physician Assistant Medical; Admitting Provider Hospitalist; Emergency Provider Emergency Medicine Emergency Medical Services; PCP Internal Medicine; Visit Provider Hospitalist
DX: I48.0 Paroxysmal atrial fibrillation (principal); E78.5 Hyperlipidemia, unspecified; I47.1 Supraventricular tachycardia; F41.9 Anxiety disorder, unspecified; K21.9 Gastro-esophageal reflux disease without esophagitis; Z86.711 Personal history of pulmonary embolism; Z79.01 Long term (current) use of anticoagulants; Z79.899 Other long term (current) drug therapy
CPT/HCPCS: 36415; 71045; 80053; 83735; 84443; 84484; 85025; 87635; 93005; 99285; J1160

== ENCOUNTER → 2022-08-22 08:30 | Outpatient (BNVA) | payer OTHER, SELFPAY | PROVIDERS: PCP Internal Medicine; Referring Provider Internal Medicine; Visit Provider Internal Medicine Cardiovascular Disease | DX: I48.0 Paroxysmal atrial fibrillation (principal); I47.1 Supraventricular tachycardia | CPT/HCPCS: 93005 ==

== ENCOUNTER → 2022-11-28 13:06 | Outpatient (BNVA) | payer OTHER, SELFPAY | PROVIDERS: PCP Internal Medicine; Referring Provider Internal Medicine; Visit Provider Internal Medicine Cardiovascular Disease | DX: I48.0 Paroxysmal atrial fibrillation (principal) | CPT/HCPCS: 93005 ==

== ENCOUNTER 2022-12-26 07:32 | Outpatient (REF) | payer OTHER, SELFPAY ==
[2022-12-26 07:40] LABS: MANUAL DIFF FLAG NO
[2022-12-26 07:47] LABS: Basophils Percent Auto 0.3 % (0-2); Eosinophils Absolute Auto 0.1 X10*3/uL (0.0-0.4); Eosinophils Percent Auto 1.4 % (0-4); Hematocrit 48.6 % (42.0-52.0); Hemoglobin 16.4 g/dl (14.0-18.0); Imm Gran Abs Auto 0.01 X10*3/uL (0.00-0.03); Imm Gran Pct Auto 0.2 % (0.0-0.4); Lymphocytes Absolute Auto 1.8 X10*3/uL (1.2-4.9); Lymphocytes Percent Auto 30.9 % (20-40); Mean Corpuscular HGB Conc 33.7 g/dl (31.0-36.0); Mean Corpuscular Hemoglobin 30.4 pg (27.0-33.0); Mean Corpuscular Volume 90.2 fL (80.0-98.0); Mean Platelet Volume 10.3 fL (9.4-12.4); Monocytes Absolute Auto 0.4 X10*3/uL (0.1-1.2); Monocytes Percent Auto 6.7 % (2-11); Neutrophils Absolute Auto 3.5 x10*3/uL (2.0-8.3); Neutrophils Percent Auto 60.5 % (45-73); Platelet Count 187 X10*3/uL (160-400); Red Blood Count 5.39 X10*6/uL (4.60-5.80); Red Cell Distribution Width 12.5 % (11.0-16.0); White Blood Count 5.8 X10*3/uL (4.8-10.8)
[2022-12-26 08:10] LABS: Alanine Aminotransferase 88 U/L (0-40); Alkaline Phosphatase 56 U/L (39-117); Anion Gap 11 (12-20); Aspartate Amino Transferase 50 U/L (5-37); Bilirubin Total 1.2 mg/dL (0.0-1.0); Blood Urea Nitrogen 20 mg/dL (9-16); Calcium 9.8 mg/dL (8.4-10.2); Carbon Dioxide 26 mmol/L (22-29); Chloride 107 mmol/L (96-108); Cholesterol 179 mg/dL; Estimated Glomerular Filt Rate 59; Glucose Random 98 mg/dL (60-115); HDL Cholesterol 42 mg/dL; LDL Cholesterol Calculated 113 mg/dl; Magnesium 2.1 mg/dL (1.6-2.6); Potassium 4.3 mmol/L (3.3-5.1); Sodium 140 mmol/L (135-145); Total Protein 7.2 g/dL (6.5-8.0); Triglycerides 120 mg/dL
[2022-12-26 08:31] LABS: Free T4 (Free Thyroxine) 1.04 ng/dL (0.71-1.85); Thyroid Stimulating Hormone 0.41 uIU/mL (0.32-4.0)
[2022-12-26 08:57] LABS: Folate 9.9 ng/mL (> or = 4.0); Prostate Specific Antigen Scr 2.54 ng/mL (<0.05-4.0); Vitamin B12 536 pg/mL (200-900)
== END 2022-12-26 07:33 | disposition home or self-care (01) ==
LOC: HO.LAB 07:32
PROVIDERS: PCP Internal Medicine; Visit Provider Internal Medicine
DX: Z12.5 Encounter for screening for malignant neoplasm of prostate (principal); E78.00 Pure hypercholesterolemia, unspecified; I47.1 Supraventricular tachycardia
CPT/HCPCS: 36415; 80053; 80061; 82607; 82746; 83735; 84153; 84439; 84443; 85025

== ENCOUNTER 2023-06-06 07:56 | Outpatient (REF) | payer OTHER, SELFPAY ==
[2023-06-06 08:12] LABS: MANUAL DIFF FLAG NO
[2023-06-06 08:20] LABS: Basophils Percent Auto 0.4 % (0-2); Eosinophils Percent Auto 0.8 % (0-4); Hematocrit 46.5 % (42.0-52.0); Hemoglobin 15.6 g/dl (14.0-18.0); Lymphocytes Absolute Auto 1.7 X10*3/uL (1.2-4.9); Lymphocytes Percent Auto 34.7 % (20-40); Mean Corpuscular HGB Conc 33.5 g/dl (31.0-36.0); Mean Corpuscular Hemoglobin 31.2 pg (27.0-33.0); Mean Platelet Volume 10.2 fL (9.4-12.4); Monocytes Absolute Auto 0.4 X10*3/uL (0.1-1.2); Monocytes Percent Auto 8.4 % (2-11); Neutrophils Absolute Auto 2.7 x10*3/uL (2.0-8.3); Neutrophils Percent Auto 55.7 % (45-73); Platelet Count 188 X10*3/uL (160-400); Red Cell Distribution Width 12.2 % (11.0-16.0); White Blood Count 4.9 X10*3/uL (4.8-10.8)
[2023-06-06 08:52] LABS: B Type Natriuretic Peptide 30 pg/mL (<100)
[2023-06-06 08:55] LABS: Alanine Aminotransferase 26 U/L (0-40); Albumin Level 4.1 g/dL (3.5-5.0); Alkaline Phosphatase 54 U/L (39-117); Anion Gap 10 (12-20); Aspartate Amino Transferase 24 U/L (5-37); Bilirubin Total 0.6 mg/dL (0.0-1.0); Blood Urea Nitrogen 30 mg/dL (9-16); Calcium 9.4 mg/dL (8.4-10.2); Carbon Dioxide 27 mmol/L (22-29); Chloride 109 mmol/L (96-108); Cholesterol 184 mg/dL (<200); Estimated Glomerular Filt Rate > 60; Glucose Random 100 mg/dL (60-115); HDL Cholesterol 53 mg/dL (>40); LDL Cholesterol Calculated 112 mg/dL (<100); Potassium 4.3 mmol/L (3.3-5.1); Sodium 142 mmol/L (135-145); Total Protein 7.1 g/dL (6.5-8.0); Triglycerides 96 mg/dL (<150)
[2023-06-06 09:11] LABS: Free T4 (Free Thyroxine) 1.01 ng/dL (0.71-1.85); Thyroid Stimulating Hormone 0.61 uIU/mL (0.32-4.0)
[2023-06-06 09:20] LABS: Folate 6.6 ng/mL (> or = 4.0); Prostate Specific Antigen Scr 3.11 ng/mL (<0.05-4.0); Vitamin B12 425 pg/mL (200-900)
== END 2023-06-06 07:57 | disposition home or self-care (01) ==
LOC: HO.LAB 07:56
PROVIDERS: PCP Internal Medicine; Visit Provider Internal Medicine
DX: Z12.5 Encounter for screening for malignant neoplasm of prostate (principal); I48.0 Paroxysmal atrial fibrillation; E78.00 Pure hypercholesterolemia, unspecified
CPT/HCPCS: 36415; 80053; 80061; 82607; 82746; 83880; 84153; 84439; 84443; 85025

== ENCOUNTER 2023-06-12 10:53 | Outpatient (AMB) | payer OTHER, SELFPAY ==
[2023-06-12 10:54] VITALS: BP 120/70; PULSE 62; BMI 29.5
--- NOTE | 2023-06-12 10:54 | MHC.OFFVIS ---
Intake Vital Signs 06/12/23 10:54 Height 6 ft Weight 217 lb 6.012 oz BMI 29.5 BP 120/70 Blood Pressure Location Lt brachial Position Sitting Pulse 62 Pulse Source Pulse Oximeter Intake Visit Reasons: 6 mth f/up Intake Note: 6 mth f/up Pt it feeling good [employer] Required: No Accompanied by: Self / Same As Patient Allergies No Known Allergies Allergy (Verified 06/12/23 10:57) Medication List - Last Reconciled 06/12/23 by Sajan Fernando MD amoxicillin 2,000 mg orally one hour before the procedure; cholecalciferol (vitamin D3) (Vitamin D3) 25 mcg PO BEDTIME diltiazem HCl 120 mg PO DAILY omeprazole 20 mg PO DAILY pravastatin 20 mg PO BEDTIME 90 days HPI HPI Comments History of Present Illness Details Praful comes for follow-up. He has been exercising and has been doing heavy low aerobic workouts. He occasionally while monitoring his heart rate notices that his heart rate jumps by 20 beats per minute. He has no symptoms associated with it. Symptoms last for few seconds. He has had no prolonged palpitation irregular heartbeat. He does not recall having any symptoms suggestive of atrial fibrillation. Denies any exertional shortness of breath. No orthopnea, PND. Occasional after a long flight bilateral ankle swelling. He is worried about congestive heart failure. BNP done about 6 days ago was 30. He also says that his notices that he might have some wheezing/raspy breathing sounds. [facility] Medical History Paroxysmal atrial fibrillation Afib Pulmonary embolism Palpitations Obesity (BMI 30-39.9) Hypercholesterolemia Anxiety GERD (gastroesophageal reflux disease) Barretts esophagus Surgical History History of knee replacement procedure of left knee History of esophagogastroduodenoscopy (EGD) Hx of colonoscopy History of arthroscopy of left knee History of eye surgery History of umbilical hernia repair Family History Father No problems noted. Mother Colon cancer Sister Leukemia Brother Stomach cancer Social History Household Members: Spouse Housing: House Do you presently have visiting nurse or other home services: No Alcohol intake: current Alcohol intake frequency: holidays/special occasions only Alcohol type: wine Patient Tobacco Use Status: Never used Tobacco e-Cigarette/Vaping Use: Never Used Second Hand Smoke Exposure: No service: No Current occupational status: employed Cognitive needs: No Hearing needs: No Vision needs: No Review of Systems Const Reports chills, Reports fatigue, Reports fever(s), Reports frequent falls, Reports weakness, Reports weight gain and Reports weight loss ENT Reports dizziness Card Reports chest pain, Reports leg edema, Reports lightheadedness, Reports palpitations, Reports dyspnea and Reports dyspnea on exertion Resp Reports cough, Reports dyspnea and Reports dyspnea on exertion GI Reports hematochezia Musc Reports abnormal gait, Reports muscle weakness, Reports numbness, Reports radiating pain into limb and Reports tingling Neuro Reports abnormal gait, Reports dizziness, Reports frequent falls, Reports numbness, Reports tingling and Reports weakness Endo Reports fatigue and Reports palpitations Physical Exam Vital Signs: Last Vital Signs Pulse 62 06/12/23 10:54 BP 120/70 06/12/23 10:54 BMI result Body Mass Index 29.5 Const General: cooperative, comfortable, alert, awake, anxious and well groomed Nutritional Appearance: overweight Orientation/consciousness: patient oriented x3 Limitations: no limitations Neck Neck: Yes trachea midline, Yes supple and Yes no JVD Resp Effort & Inspection: normal respiratory effort Auscultation: clear to auscultation bilaterally Cardio Jugular venous distension: no JVD Rate: regular rate Rhythm: regular rhythm Heart sounds: S1 normal heart sound present, S2 normal heart sound present, no click, no gallops and no murmurs GI Auscultation: normal bowel sounds Skin General skin exam: no rashes or lesions noted Neuro General: patient oriented x3 and no focal motor deficits Extrem General: Yes no clubbing, cyanosis or edema Assessment & Plan Assessment & Plan (1) Paroxysmal atrial fibrillation: Comment: September 2022 pulmonary vein isolation and ablation Code(s): I48.0 - Paroxysmal atrial fibrillation Plan: Paroxysmal atrial fibrillation status post ablation with no obvious clinical recurrence of antiarrhythmic drug therapy. Continue to avoid stimulants. Continue monitor clinically and report any new symptoms. Continue Cardizem therapy. No indication for oral anticoagulation therapy from atrial fibrillation perspective. Patient is concerned about heart failure syndrome although he does have no symptoms or signs or biochemical evidence of heart failure. He was reassured. He should get pulmonary function test given his longstanding history of acid reflux disease to guide further treatment. (2) SVT (supraventricular tachycardia): Code(s): I47.1 - Supraventricular tachycardia Plan: SVT which was not amenable to ablation. As this could not be induced during the study. Continue Cardizem therapy. He notices some rise in heart rate during exercise but this is very sporadic and last for few seconds without any obvious symptoms. No change in therapy. Avoidance of stimulants was discussed. Vagal maneuvers were discussed. Will follow up in the clinic in 1 year's time, sooner p.r.n.. Thank you for allowing me to partake in his care Orders: Orders PFT pulmonary function test Today R06.02 - Shortness of breath Coding Level of Care Code Est Pt Level 4 (63291) Diagnoses Paroxysmal atrial fibrillation I48.0 SVT (supraventricular tachycardia) I47.1
== END 2023-06-12 11:24 | disposition home or self-care (01) ==
PROVIDERS: Visit Provider Internal Medicine Cardiovascular Disease
DX: I48.0 Paroxysmal atrial fibrillation (principal); I47.1 Supraventricular tachycardia
CPT/HCPCS: 99214

== ENCOUNTER → 2023-06-12 10:53 | Outpatient (BNVA) | payer OTHER, SELFPAY | PROVIDERS: Visit Provider Internal Medicine Cardiovascular Disease ==

== ENCOUNTER 2023-06-27 12:55 | Outpatient (AMB) | payer OTHER, SELFPAY ==
[2023-06-27 13:01] VITALS: BP 112/80; PULSE 60; O2SAT 99; BMI 29.7
--- NOTE | 2023-06-27 13:01 | A.OFFPC_ITS ---
Vital Signs 06/27/23 13:01 Height 6 ft Weight 219 lb BMI 29.7 BP 112/80 Blood Pressure Location Lt brachial Position Sitting Pulse 60 Pulse Source Pulse Oximeter Pulse Oximetry (%) 99 Oxygen Delivery Method Room Air Intake Visit Reasons: Annual Exam Np Required: No Allergies No Known Allergies Allergy (Verified 06/27/23 13:01) Medication List - Last Reconciled 06/27/23 by Ninfa Pena MD amoxicillin 2,000 mg orally one hour before the procedure; cholecalciferol (vitamin D3) (Vitamin D3) 25 mcg PO BEDTIME diltiazem HCl 120 mg PO DAILY omeprazole 20 mg PO DAILY pravastatin 20 mg PO BEDTIME 90 days Tobacco use date assessed: 06/27/23 Dental Screening Dental Screen Date: 06/27/23 Did you have a dental visit in the last 12 months?: No Did you have a dental problem in the last 6 months where you did not have access to dental care?: No HPI Annual Exam HPI Details 63-year-old overweight male with atrial fibrillation status post pulmonary vein isolation and ablation, hypercholesterolemia history of pulmonary embolism on anticoagulation SVT Lo's esophagus last seen in December 2022. Patient is here for physical exam. Patient's colonoscopy is planned December 2023. Patient has seen Cardiology June 2023 patient was advised to get PFTs. Patient has also seen Orthopedics May 2023 status post left knee art hroplasty [facility] Medical History Paroxysmal atrial fibrillation Afib Pulmonary embolism Palpitations Obesity (BMI 30-39.9) Hypercholesterolemia Anxiety GERD (gastroesophageal reflux disease) Barretts esophagus Surgical History History of knee replacement procedure of left knee History of esophagogastroduodenoscopy (EGD) Hx of colonoscopy History of arthroscopy of left knee History of eye surgery History of umbilical hernia repair Family History Father No problems noted. Mother Colon cancer Sister Leukemia Brother Stomach cancer Social History (Updated 06/27/23 @ 13:37 by Ninfa Pena MD) Household Members: Spouse Housing: House Do you presently have visiting nurse or other home services: No Alcohol intake: current Alcohol intake frequency: holidays/special occasions only Alcohol type: wine Comment: 2-3 drinks /month at one time Patient Tobacco Use Status: Never used Tobacco e-Cigarette/Vaping Use: Never Used Second Hand Smoke Exposure: No service: No Current occupational status: employed Cognitive needs: No Hearing needs: No Vision needs: No Questionnaire PHQ-9 Over the last 2 weeks, how often have you been bothered by any of the following problems? 1. Little interest or pleasure in doing things: not at all 2. Feeling down, depressed, or hopeless: not at all 3. Trouble falling or staying asleep, or sleeping too much: not at all 4. Feeling tired or having little energy: not at all 5. Poor appetite or overeating: not at all 6. Feeling bad about yourself - or that you are a failure or have let yourself or your family down: not at all 7. Trouble concentrating on things, such as reading the newspaper or watching television: not at all 8. Moving or speaking so slowly that other people could have noticed. Or the opposite - being so fidgety or restless that you have been moving around a lot more than usual: not at all 9. Thoughts that you would be better off or of hurting yourself in some way: not at all Total score: 0 Depression Screening Interpretation: Negative Depression Screening Done: Yes Source: Developed by Drs. Josué Juan, Marylou Aguero, David Fierro and colleagues, with an educational jonathon from [employer]. Thrive Questionnaire Date Thrive assessed: 12/18/22 I am a: Patient What is your living situation today?: I have a steady place to live Within the past 12 months, did the food you bought not last and you didn't have the money to get more?: Never true Within the past 12 months, did you worry whether your food would run out before you got money to buy more?: Never true Do you have trouble paying for medicines?: No Do you have trouble getting transportation to medical appointments?: No Do you have trouble paying your heating and electricity bill?: No Do you have trouble taking care of your child, family member or friend?: No Do you have trouble with day-to-day activities such as bathing, preparing meals, shopping, managing finances, etc.?: No Are you currently unemployed and looking for a job?: No Are you interested in more education?: No AUDIT C Alcohol Use Questionnaire (AUDIT-C) 1. How often do you have a drink containing alcohol?: Monthly or less 2. How many drinks containing alcohol do you have on a typical day when you are drinking?: 1 or 2 3. How often do you have six or more drinks on one occasion?: Never Total Score: 1 EDGAR-7 AMB Questionnaire EDGAR-7 Date EDGAR - 7 assessed: 06/27/23 Feeling nervous, anxious, or on edge: 0 = Not at all Not being able to stop or control worryin = Not at all Worrying too much about different things: 0 = Not at all Trouble relaxin = Not at all Being so restless that it is hard to sit still: 0 = Not at all Becoming easily annoyed or irritable: 0 = Not at all Feeling afraid as if something awful might happen: 0 = Not at all Total EDGAR-7 score (0-4 normal; 5-9 mild; 10-14 moderate; 15-21 severe): 0 Source: Developed by Drs. Josué Juna, Marylou Aguero, David Fierro and colleagues, with an educational jonathon from [employer]. Review of Systems Const Denies poor appetite and Denies weakness Eyes Denies no additional complaints ENT Reports Normal hearing present, Denies dizziness, Denies nasal congestion, Denies tinnitus and Denies sore throat Card Denies chest pain, Denies syncope, Denies rapid heart rate and Denies dyspnea Resp Denies cough and Denies dyspnea GI Denies change in stool character, Reports constipation, Denies diarrhea, Denies nausea and Denies vomiting Denies dysuria and Denies urinary frequency Neuro Reports Normal hearing present, Denies confusion, Denies dizziness, Denies syncope and Denies weakness Psych Denies confusion Physical exam (Primary Care) Vital Signs: Last Vital Signs Pulse 60 06/27/23 13:01 BP 112/80 06/27/23 13:01 Pulse Ox 99 06/27/23 13:01 Oxygen Delivery Method Room Air 06/27/23 13:01 BMI result Body Mass Index 29.7 Tobacco/Smoking Status: Tobacco use Status Tobacco use date assessed 06/27/23 06/27/23 13:02 Patient Tobacco Use Status Never used Tobacco 06/27/23 13:02 e-Cigarette/Vaping Use Never Used 06/27/23 13:02 PHQ-9: PHQ-9 Score PHQ-9: Total score 0 06/27/23 13:08 Depression Screening Interpretation: Negative Thrive Assessment: Date of Thrive Assessment Date Thrive assessed 12/18/22 06/27/23 13:02 Const General: No confusion Orientation/consciousness: No confusion HENMT Head: Yes normocephalic Ears: external ears normal and TM's normal bilaterally Face and sinus: Yes normal facial exam Mouth: moist mucous membranes Throat: Yes tonsils normal Eyes Conjunctivae: conjunctivae normal Pupils: Equal, round and reactive pupils present and Pupil accommodation reflex normal Direct Ophthalmoscopy: normal light reflex Neck Neck: No lymphadenopathy Thyroid: Thyroid normal Chest Chest palpation & inspection: normal inspection of the chest Resp Effort & Inspection: normal respiratory effort and no audible wheezes Auscultation: clear to auscultation bilaterally, no crackles, no wheezes and lung sounds not diminished Cardio Rate: regular rate Rhythm: regular rhythm Peripheral pulses: radial pulses present and dorsalis pedis present GI Palpation (GI): no masses Auscultation: normal bowel sounds and normoactive bowel sounds Rectal Exam - Male: Yes deferred Skin General skin exam: no rashes or lesions noted Rashes: no rashes Neuro General: No confusion Cranial nerves: Yes Equal, round and reactive pupils present and Yes Normal hearing present Cognition (Neuro): normal cognition Gait exam (Neuro): Normal gait present Motor exam (neuro): 5/5 motor strength present throughout Deep tendon reflexes (DTR's): Right brachioradialis reflex intensity grade: 2+, Left brachioradialis reflex intensity grade: 2+, Right patellar reflex intensity grade: 2+ and Left patellar reflex intensity grade: 2+ Extrem General: No edema Assessment and Plan Assessment & Plan (1) Annual physical exam: Code(s): Z00.00 - Encounter for general adult medical examination without abnormal findings (2) Barretts esophagus: Comment: December Code(s): K22.70 - Lo's esophagus without dysplasia Qualifiers: Lo's esophagus type: without dysplasia Qualified Code(s): K22.70 - Lo's esophagus without dysplasia Plan: Avoid the foods that causes that usually spicy foods, tomato products, juices, coffee, soda and foods that your sensitive to. After eating do not lie down, allow 3-4 hours before in lie down. And keep the head of bed above 30 degrees to avoid the acid from going up. (3) Paroxysmal atrial fibrillation: Comment: September 2022 pulmonary vein isolation and ablation Code(s): I48.0 - Paroxysmal atrial fibrillation Plan: stable patient continues to be followed up by Cardiology (4) Hypercholesterolemia: Code(s): E78.00 - Pure hypercholesterolemia, unspecified Plan: Avoid fried foods, chicken skin, eggs, butter margarine, pastries and meat. Be it pork or beef they have a lot of cholesterol LDL goal of less than 130 and triglyceride of less than 150. Patient on pravastatin 20 mg at bedtime (5) Bilateral shoulder pain: Code(s): M25.511 - Pain in right shoulder; M25.512 - Pain in left shoulder Orders: Orders XR shoulder LT min 2V Today M25.511 - Pain in right shoulder, M25.512 - Pain in left shoulder XR shoulder RT min 2V Today M25.511 - Pain in right shoulder, M25.512 - Pain in left shoulder Referrals Orthopedics Referral M25.511 - Pain in right shoulder, M25.512 - Pain in left shoulder Coding Level of Care Code Est Pt Prev Care 40-64y(19554) Diagnoses Annual physical exam Z00.00 Lo's esophagus without dysplasia K22.70 Lo's esophagus type: without dysplasia Paroxysmal atrial fibrillation I48.0 Hypercholesterolemia E78.00 Bilateral shoulder pain M25.511; M25.512
== END 2023-06-27 13:54 | disposition home or self-care (01) ==
PROVIDERS: Visit Provider Internal Medicine
DX: Z00.00 Encounter for general adult medical examination without abnormal findings (principal); K22.70 Barrett's esophagus without dysplasia; I48.0 Paroxysmal atrial fibrillation; E78.00 Pure hypercholesterolemia, unspecified; M25.511 Pain in right shoulder; M25.512 Pain in left shoulder
CPT/HCPCS: 99396

== ENCOUNTER 2023-06-27 14:01 | Outpatient (REF) | payer OTHER, SELFPAY | END 2023-06-27 14:02 | disposition home or self-care (01) | LOC: HO.XRAY 14:01 | PROVIDERS: PCP Internal Medicine; Visit Provider Internal Medicine | DX: M25.511 Pain in right shoulder (principal); M25.512 Pain in left shoulder | CPT/HCPCS: 73030 ==

== ENCOUNTER 2023-09-12 12:02 | Emergency (ER) | payer OTHER, SELFPAY ==
--- NOTE | ~2023-09-12 | XR_ITS ---
EXAMINATION: XR CHEST CLINICAL INFORMATION: Palpitations COMPARISON: 05/21/2022 TECHNIQUE: Frontal view of the chest was obtained. FINDINGS: No significant abnormality is noted involving the heart, lungs, mediastinum, bony thorax or soft tissues. XR/XR chest 1V IMPRESSION: Unremarkable examination.
--- NOTE | 2023-09-12 12:05 | ECG_ITS ---
Test Reason : SVT Blood Pressure : / mmHG Vent. Rate : 185 BPM Atrial Rate : 000 BPM P-R Int : 000 ms QRS Dur : 094 ms QT Int : 240 ms P-R-T Axes : 000 109 022 degrees QTc Int : 421 ms Supraventricular tachycardia Incomplete right bundle branch block Possible Right ventricular hypertrophy Nonspecific ST abnormality Abnormal ECG When compared with ECG of 22-MAY-2022 14:20, WA interval has decreased Vent. rate has increased BY 123 BPM QRS axis Shifted right Nonspecific T wave abnormality, improved in Anterior leads Referred By: Generic ED Physician Electronically Signed By:Shar Gruber
[2023-09-12] MEDS: Adenosine 6 MG/2 ML VIAL IVPUSH (12:17)
[2023-09-12] MEDS: Adenosine 6 MG/2 ML VIAL 12 MG IVPUSH (12:19)
[2023-09-12 12:20] LABS: MANUAL DIFF FLAG NO
--- NOTE | 2023-09-12 12:20 | PC.NURSE ---
pt presents to the ED after having palpitations and heart fluttering since 10 this morning. pt was advised to come to ED after speaking w/ utility engineer. upon being placed on computer numerical control programmer. rhythm displays that pt was in SVT. 180s-190s bpm. pt verbalizing original sx were still present at this time. no sob/wob noted. respirations even and unlabored. pt calm/cooperative speaking to ED providers. pt states that he feels fine. 20gIV placed in the left AC. labs obtained/sent to lab. pt placed on pacer pads for precaution. this RN, Gretchen RN, Rachel EMANUEL, Dr. Yee and RT bedside. 500ml of NS infusing via IV. 6mg of adenosine administered IVP @ 12:17. no break in rhythm. 12mg of adenosine administered IVP @ 12:19. rhythm broke - new rhythm displayed as nsr on the computer numerical control programmer. HR in the 80s. pt now resting comfortably in no apparent distress. no sob/wob noted. respirations even and unlabored. call owens placed within reach.
[2023-09-12 12:22] LABS: Basophils Percent Auto 0.4 % (0-2); Eosinophils Absolute Auto 0.1 X10*3/uL (0.0-0.4); Eosinophils Percent Auto 0.6 % (0-4); Hemoglobin 16.5 g/dl (14.0-18.0); Imm Gran Abs Auto 0.02 X10*3/uL (0.00-0.03); Imm Gran Pct Auto 0.2 % (0.0-0.4); Lymphocytes Absolute Auto 2.8 X10*3/uL (1.2-4.9); Lymphocytes Percent Auto 29.9 % (20-40); Mean Corpuscular HGB Conc 34.4 g/dl (31.0-36.0); Mean Corpuscular Hemoglobin 30.9 pg (27.0-33.0); Mean Corpuscular Volume 89.9 fL (80.0-98.0); Mean Platelet Volume 10.1 fL (9.4-12.4); Monocytes Absolute Auto 0.7 X10*3/uL (0.1-1.2); Neutrophils Absolute Auto 5.7 x10*3/uL (2.0-8.3); Neutrophils Percent Auto 60.9 % (45-73); Platelet Count 236 X10*3/uL (160-400); Red Blood Count 5.34 X10*6/uL (4.60-5.80); Red Cell Distribution Width 11.9 % (11.0-16.0); White Blood Count 9.3 X10*3/uL (4.8-10.8)
--- NOTE | 2023-09-12 12:22 | ED_ITS ---
HPI - General Adult General Chief complaint: Arrhythmia/Palpitations Stated complaint: SVT Time Seen by Provider: 09/12/23 12:06 Source: patient Mode of arrival: ambulatory Limitations: no limitations History of Present Illness HPI narrative: 63 year old male hx of svt, afib s/p ablation not anticoagulated , hld, obesity, anxiety and barretts esophagus presents w/ palpitations since 10 am. Advised by cardiology to come in if they persist. Patient comes in only complaining of racing heart. No headache, cp, sob, n/v/d, abd pain, visionc hanges, or dizziness. Related Data Home Medications Medication Instructions Recorded Confirmed cholecalciferol (vitamin D3) 25 25 mcg PO BEDTIME 06/05/20 06/27/23 mcg (1,000 unit) capsule (Vitamin D3) omeprazole 20 mg capsule,delayed 20 mg PO DAILY 01/14/22 06/27/23 release Previous Rx's Medication Instructions Recorded amoxicillin 500 mg tablet 2,000 mg (4 x 500 mg) PO .COMPLEX 12/18/22 #4 tabs diltiazem HCl 120 mg 120 mg PO DAILY #90 caps 04/08/23 capsule,extended release 24 hr pravastatin 20 mg tablet 20 mg PO BEDTIME 90 days #90 tabs 08/22/23 Allergies Allergy/AdvReac Type Severity Reaction Status Date / Time No Known Allergies Allergy Verified 09/12/23 12:21 Review of Systems 2 Review of Systems: Yes all other systems are reviewed and are negative [facility] Past Medical History Attestation statement: The following information was validated with the patient. Source: old records reviewed and nursing notes reviewed Medical History Paroxysmal atrial fibrillation Afib Pulmonary embolism Palpitations Obesity (BMI 30-39.9) Hypercholesterolemia Anxiety GERD (gastroesophageal reflux disease) Barretts esophagus Surgical History History of knee replacement procedure of left knee History of esophagogastroduodenoscopy (EGD) Hx of colonoscopy History of arthroscopy of left knee History of eye surgery History of umbilical hernia repair Family History Family History Father No problems noted. Mother Colon cancer Sister Leukemia Brother Stomach cancer Social History Social History Household Members: Spouse Housing: House Do you presently have visiting nurse or other home services: No Alcohol intake: current Alcohol intake frequency: holidays/special occasions only Alcohol type: wine Comment: 2-3 drinks /month at one time Patient Tobacco Use Status: Never used Tobacco e-Cigarette/Vaping Use: Never Used Second Hand Smoke Exposure: No Advance Directives: Yes Advance Directives Information Provided: Yes Advance Directives on File: No service: No Current occupational status: employed Cognitive needs: No Hearing needs: No Vision needs: No Physical Exam ED Vital Signs: Vital Signs - 24 hr 09/12/23 12:23 Pulse Rate 84 Respiratory Rate 16 Blood Pressure 104/72 Pulse Oximetry 99 Oxygen Delivery Method Room Air BMI result Body Mass Index 29.2 vss Appearance: Alert.? Oriented X3.? No acute distress.? Head: Normocephalic, atraumatic, no step-offs or deformities Eyes: Pupils equal, round and reactive to light.? CVS: rapid rate regular rythem around 180 bpm ? SVT ? Pulses normal.? Respiratory: No respiratory distress.? Breath sounds normal.? Abdomen: Soft and nontender.? Skin: Skin warm and dry.? Normal skin color.? Normal skin turgor.? Extremities: No lower extremity edema.? No calf ttp. 5/5 strength to bilateral upper and lower extremities Back: No midline tenderness, no C-spine tenderness, full range of motion, no CVA tenderness bilaterally Neuro: Oriented X 3.? No motor deficit.? No sensory deficit. CN 2-12 intact Course Reevaluation(s) Reevaluation #1: CBC no acute findings. Chemistry no acute findings requiring intervention. BNP, troponin pending. Chest x-ray also pending. Patient feeling better. Heart rate 81 beats per minute, normal sinus rhythm. EKG repeat was obtained showing a ventricular rate of 78 NE normal, QRS normal, QT/QTC normal. No ST elevations or inversions concerning for any acute changes. Time: 12:45 Reevaluation #2: Patient's heart rate remains in the 70s/80s beats per minute. Patient feeling well. Asymptomatic. Feels well. Will follow up with Cardiology. Educated patient on diagnosis and treatment plan, answered all question, patient verbalizes understanding. At this time patient will be discharged home, advised to return with new or worsening symptoms. Educated on worrisome signs and symptoms and when to return. At this time I feel comfortable discharge home. Time: 13:47 Medical Decision Making Medical Decision Making [facility] Narrative: 63 yo m presents w/ palpitations since 1000 am PE - rapid rate regular rythem around 180 bpm ? SVT Hx and pe concerning for svt vs atrial flutter vs afib. Unlikely ACS, dissection, pe, ARDS, unstable svt or flutter. Immediately code cart place next patient room, valsalva attempted and failed, patient placed on pads, attending in the room I administered 6, 12 of adenosine and SVT broken to normal sinus rhythm. Patient feeling better. Tolerating medicine well. No adverse effects. Plan- labs, ekg, trop, cxr Differential Diagnosis Differential Diagnoses: The differential diagnosis associated with the presentation includes Hx and pe concerning for svt vs atrial flutter vs afib. Unlikely ACS, dissection, pe, ARDS, unstable svt or flutter. Admission/Observation Consideration of admission/observation: Escalation of care including admission/observation considered possible Lab Data [facility] Lab Attestation statement: I reviewed the patient's lab results. 09/12/23 12:14 09/12/23 12:14 Labs: Lab Results 09/12/23 09/12/23 Range/Units 12:14 12:15 WBC 9.3 (4.8-10.8) X10*3/uL RBC 5.34 (4.60-5.80) X10*6/uL Hgb 16.5 (14.0-18.0) g/dl Hct 48.0 (42.0-52.0) % MCV 89.9 (80.0-98.0) fL MCH 30.9 (27.0-33.0) pg MCHC 34.4 (31.0-36.0) g/dl RDW 11.9 (11.0-16.0) % Plt Count 236 D (160-400) X10*3/uL MPV 10.1 (9.4-12.4) fL Immature Gran % (Auto) 0.2 (0.0-0.4) % Neut % (Auto) 60.9 (45-73) % Lymph % (Auto) 29.9 (20-40) % Garfield % (Auto) 8.0 (2-11) % Eos % (Auto) 0.6 (0-4) % Baso % (Auto) 0.4 (0-2) % Lymph # (Auto) 2.8 (1.2-4.9) X10*3/uL Garfield # (Auto) 0.7 (0.1-1.2) X10*3/uL Eos # (Auto) 0.1 (0.0-0.4) X10*3/uL Baso # (Auto) 0.0 (0.0-0.2) X10*3/uL Abs Immat Gran (auto) 0.02 (0.00-0.03) X10*3/uL Absolute Neuts (auto) 5.7 (2.0-8.3) x10*3/uL Absolute Nucleated RBC 0.000 (0.0-0.012) X10*3/uL Nucleated RBC % (auto) 0.0 (0.0-0.2) /100WBC APTT 28.8 (26.0-36.8) SEC Sodium 139 (135-145) mmol/L Potassium 4.0 (3.3-5.1) mmol/L Chloride 106 (96-108) mmol/L Carbon Dioxide 27 (22-29) mmol/L Anion Gap 10 L (12-20) BUN 21 H (9-16) mg/dL Creatinine 1.35 (0.5-1.4) mg/dL Estim Creat Clear Calc 69.5 Estimated GFR 54 Random Glucose 115 (60-115) mg/dL Calcium 9.5 (8.4-10.2) mg/dL Troponin I High Sens < 2.7 (<3.5-35.0) ng/L B-Natriuretic Peptide 53 (<100) pg/mL Independent Interpretation I performed an independent interpretation of an: EKG (SVT- 183 ) and Plain X-Ray ( XR/XR chest 1V IMPRESSION: Unremarkable examination. ) Radiology Impression Discussion of test interpretation with radiology: I have reviewed the radiologist's reading. External Record Review External record reviewed: Inpatient record, Office record, Outpatient record, Prior outpatient labs, Prior outpatient radiology, Primary care record and Outside ED record Chronic Conditions Patient?s care impacted by: Other (svt, afib, hld, obesity, anxiety and barretts esophagus ) Critical Care Time Critical Care Time Critical Care Time: Yes Total Critical Care Time: 45 Attestation: I attest to this time spent taking care of the patient, obtaining history, physical, reviewing labs, imaging, speaking to my attending, speaking to specialist. Discharge Plan Discharge Clinical Impression: SVT (supraventricular tachycardia) Patient Disposition: Home, Self-Care Instructions: Supraventricular Tachycardia (ED), Valsalva Maneuver (ED) Additional Instructions: Take your medications as prescribed. If you were prescribed antibiotics today, it is important that you take your medication to their entirety, do not skip any doses, do not finish them early. Follow-up with your primary care provider this week. Return to the emergency department with new or worsening symptoms. Such as fevers, chills, chest pain, shortness of breath, nausea, vomiting, dizziness, headache, vision changes, lethargy In case of emergency call 911 Follow-up with cardiology. Prescriptions: No Action diltiazem HCl 120 mg capsule,extended release 24hr 120 mg PO DAILY Qty: 90 3RF pravastatin 20 mg tablet 20 mg PO BEDTIME 90 Days Qty: 90 0RF cholecalciferol (vitamin D3) [Vitamin D3] 25 mcg (1,000 unit) capsule 25 mcg PO BEDTIME omeprazole 20 mg capsule,delayed release(DR/EC) 20 mg PO DAILY amoxicillin 500 mg tablet 2,000 mg PO .COMPLEX Qty: 4 1RF Rx Instructions: 2,000 mg orally one hour before the procedure; Referrals: [facility] [place] [facility] [Provider Group] - 1 day Po,Ninfa Nelson MD [Primary Care Provider] - 2 days Stand Alone Forms: Work/School Release
[2023-09-12 12:23] VITALS: BP 104/72; PULSE 84; RESP 16; O2SAT 99; BMI 29.2
--- NOTE | 2023-09-12 12:26 | ECG_ITS ---
Test Reason : SVT REPEAT Blood Pressure : / mmHG Vent. Rate : 078 BPM Atrial Rate : 078 BPM P-R Int : 192 ms QRS Dur : 098 ms QT Int : 386 ms P-R-T Axes : 019 -15 005 degrees QTc Int : 440 ms Normal sinus rhythm Normal ECG When compared with ECG of 12-SEP-2023 12:08, Vent. rate has decreased BY 107 BPM QRS axis Shifted left Referred By: Love Varela Electronically Signed By:Shar Gruber
[2023-09-12 12:31] LABS: Partial Thromboplastin Time 28.8 SEC (26.0-36.8)
[2023-09-12 12:37] LABS: Anion Gap 10 (12-20); Blood Urea Nitrogen 21 mg/dL (9-16); Calcium 9.5 mg/dL (8.4-10.2); Carbon Dioxide 27 mmol/L (22-29); Chloride 106 mmol/L (96-108); Creatinine Clr Calc Pharmacy 69.5; Estimated Glomerular Filt Rate 54; Glucose Random 115 mg/dL (60-115); Sodium 139 mmol/L (135-145)
--- NOTE | 2023-09-12 12:38 | PC.NURSE ---
xray bedside at this time.
[2023-09-12 12:46] LABS: B Type Natriuretic Peptide 53 pg/mL (<100)
[2023-09-12 12:52] LABS: Troponin-I High Sensitivity < 2.7 ng/L (<3.5-35.0)
== END 2023-09-12 14:01 | disposition home or self-care (01) ==
PROVIDERS: Physician Assistant; Emergency Provider Emergency Medicine; PCP Internal Medicine
DX: I47.10 Supraventricular tachycardia, unspecified (principal); Z86.711 Personal history of pulmonary embolism; Z86.79 Personal history of other diseases of the circulatory system
CPT/HCPCS: 36415; 71045; 80048; 83880; 84484; 85025; 85730; 93005; 96374; 96376; 99283; 99284; J0153

== ENCOUNTER → 2023-09-12 12:05 | Outpatient (BNV) | payer OTHER, SELFPAY | PROVIDERS: Emergency Provider Emergency Medicine; PCP Internal Medicine; Visit Provider Internal Medicine Cardiovascular Disease | DX: I47.10 Supraventricular tachycardia, unspecified (principal); I45.10 Unspecified right bundle-branch block | CPT/HCPCS: 93010 ==

== ENCOUNTER 2023-12-08 06:24 | Day surgery (SDC) | payer OTHER, SELFPAY ==
--- NOTE | 2023-12-05 09:46 | HO.ANESPROP2 ---
Documented by User: Supriya Diaz NP 12/05/23 09:49 HPI - Anesthesia Eval Consult details Narrative: 63yo M for Upper Endoscopy and Colonoscopy [place] [facility] for PAF, SVT. Stable at 06/2023 with 1 year f/u, no anticoag PMFSH Active Problems Active Problems: All Active Problems Bilateral shoulder pain (Acute) Impaired fasting blood sugar (Acute) Colon cancer screening (Acute) Hypercholesterolemia (Acute) COVID-19 virus infection (Acute) Paroxysmal atrial fibrillation (Acute) Bradycardia (Acute) Bilateral pulmonary embolism (Chronic) Annual physical exam (Acute) SVT (supraventricular tachycardia) (Acute) Knee pain, left (Acute) Lip lesion (Acute) Palpitations (Acute) Annual physical exam (Acute) Overweight (Acute) Obesity (BMI 30-39.9) (Acute) Anxiety (Acute) Barretts esophagus (Acute) Past Medical History Medical History (Updated 09/12/23 @ 12:31 by JENAE Wynn) Paroxysmal atrial fibrillation Afib Pulmonary embolism Palpitations Obesity (BMI 30-39.9) Hypercholesterolemia Anxiety GERD (gastroesophageal reflux disease) Barretts esophagus Family History Family History Father No problems noted. Mother Colon cancer Sister Leukemia Brother Stomach cancer Family history of problems with anesthesia: No Surgical History Surgical History (Updated 12/08/23 @ 07:01 by Poppy Mar) H/O heart surgery History of knee replacement procedure of left knee History of esophagogastroduodenoscopy (EGD) Hx of colonoscopy History of arthroscopy of left knee History of eye surgery History of umbilical hernia repair History of Problems with Anesthesia: No Social History Social History Household Members: Spouse Housing: House Do you presently have visiting nurse or other home services: No Alcohol intake: current Alcohol intake frequency: holidays/special occasions only Alcohol type: wine Comment: 2-3 drinks /month at one time Patient Tobacco Use Status: Never used Tobacco e-Cigarette/Vaping Use: Never Used Second Hand Smoke Exposure: No Use of substances other than those prescribed or required for medical reasons: No Are you DNR?: No Advance Directives: No Advance Directives Information Provided: Yes service: No Current occupational status: employed Cognitive needs: No Hearing needs: No Vision needs: No Meds Allergies Allergy/AdvReac Type Severity Reaction Status Date / Time No Known Allergies Allergy Verified 12/08/23 06:49 Home Medications ?Medication ?Instructions ?Recorded ?Confirmed ?Last Taken ?Type cholecalciferol (vitamin D3) 25 25 mcg PO BEDTIME 06/05/20 12/08/23 05/20/22 History mcg (1,000 unit) capsule (Vitamin D3) omeprazole 20 mg capsule,delayed 20 mg PO DAILY 01/14/22 12/08/23 12/08/23 History release Exam Pertinent Lab Results Pertinent Lab Results: Laboratory Tests 09/12/23 12:14 WBC 9.3 Hgb 16.5 Hct 48.0 Plt Count 236 D Sodium 139 Potassium 4.0 Chloride 106 Carbon Dioxide 27 BUN 21 H Creatinine 1.35 Narrative Narrative: EKG 09/2023 Vent. Rate : 078 BPM Atrial Rate : 078 BPM P-R Int : 192 ms QRS Dur : 098 ms QT Int : 386 ms P-R-T Axes : 019 -15 005 degrees QTc Int : 440 ms Normal sinus rhythm Normal ECG When compared with ECG of 12-SEP-2023 12:08, Vent. rate has decreased BY 107 BPM QRS axis Shifted left Assessment and Plan Assessment Anesthesia Assessment: Chart Reviewed Final Anesthetic Review Family History of Problems with Anesthesia: No History of Problems with Anesthesia: No Documented by User: Clifford Qureshi MD 12/08/23 07:38 [facility] Past Medical History Medical History (Updated 09/12/23 @ 12:31 by JENAE Wynn) Paroxysmal atrial fibrillation Afib Pulmonary embolism Palpitations Obesity (BMI 30-39.9) Hypercholesterolemia Anxiety GERD (gastroesophageal reflux disease) Barretts esophagus Family History Family History Father No problems noted. Mother Colon cancer Sister Leukemia Brother Stomach cancer Surgical History Surgical History (Updated 12/08/23 @ 07:01 by Poppy Mar) H/O heart surgery History of knee replacement procedure of left knee History of esophagogastroduodenoscopy (EGD) Hx of colonoscopy History of arthroscopy of left knee History of eye surgery History of umbilical hernia repair Social History Social History Household Members: Spouse Housing: House Do you presently have visiting nurse or other home services: No Alcohol intake: current Alcohol intake frequency: holidays/special occasions only Alcohol type: wine Comment: 2-3 drinks /month at one time Patient Tobacco Use Status: Never used Tobacco e-Cigarette/Vaping Use: Never Used Second Hand Smoke Exposure: No Use of substances other than those prescribed or required for medical reasons: No Are you DNR?: No Advance Directives: No Advance Directives Information Provided: Yes service: No Current occupational status: employed Cognitive needs: No Hearing needs: No Vision needs: No Meds Allergies Allergy/AdvReac Type Severity Reaction Status Date / Time No Known Allergies Allergy Verified 12/08/23 06:49 Home Medications ?Medication ?Instructions ?Recorded ?Confirmed ?Last Taken ?Type cholecalciferol (vitamin D3) 25 25 mcg PO BEDTIME 06/05/20 12/08/23 05/20/22 History mcg (1,000 unit) capsule (Vitamin D3) omeprazole 20 mg capsule,delayed 20 mg PO DAILY 01/14/22 12/08/23 12/08/23 History release Exam Airway Mallampati Class: II TM Dist: <=3cm Neck ROM: Full Loose/Missing/Broken Teeth: No Heart: rrr Lungs: cta Assessment and Plan Assessment Anesthesia Assessment: Anesthesia Plan Discussed Final Anesthetic Review NPO: Yes ASA Class: III Final Preanesthetic Review: Meds/Allgs Chart Reviewed, Consent Obtained/Reviewed and Anes Risks/Benef Reviewed Patient Risk: Intermediate Procedure Risk: Intermediate Anesthetic Plan Anesthetic Plan: TIVA Disposition: Standard PACU
[2023-12-08 07:02] VITALS: BP 122/80; PULSE 70; RESP 16; TEMP 36.2; O2SAT 98; BMI 30.2
[2023-12-08] MEDS: Lactated Ringers 1,000 ML 100 ML IVCONT (07:07)
[2023-12-08 08:35] VITALS: BP 98/61; PULSE 71; RESP 16; TEMP 36.8; O2SAT 95
--- NOTE | 2023-12-08 08:39 | P.BOP_ITS ---
Brief Operative Note Date of Service: 12/08/23 Pre-op diagnosis: Lo's, Screening Post-op diagnosis: other (Same, Hiatal hernia, Duverticulosis) Procedure: EGD with bx, Colonoscopy to the cecum Surgeon: Josué Borges MD Anesthesia: MAC Was an Machine Overhauler used for this Procedure?: No Estimated blood loss (mL): 2.0 Pathology: other (A. EG Junction at 39cm) Condition: stable Disposition: PACU
[2023-12-08 08:50] VITALS: BP 106/65; PULSE 67; RESP 18; TEMP 36.6; O2SAT 98
--- NOTE | 2023-12-08 09:56 | OP_ITS ---
DATE OF SERVICE: 12/08/2023 SURGEON: Josué Borges MD INDICATIONS: The patient presents for evaluation of gastroesophageal reflux with Lo esophagus, family history of colon cancer, and colorectal cancer screening. Full consent has been obtained from him for this, including risks of bleeding and perforation. PREOPERATIVE DIAGNOSIS: POSTOPERATIVE DIAGNOSIS: PROCEDURE PERFORMED: Esophagogastroduodenoscopy with biopsies, and colonoscopy to cecum. ESTIMATED BLOOD LOSS: COMPLICATIONS: ANESTHESIA: Monitored anesthesia care. ASSISTANTS: SPECIMENS: PREOPERATIVE DIAGNOSES: Gastroesophageal reflux, Lo esophagus, family history of colon cancer, and colorectal cancer screening. POSTOPERATIVE DIAGNOSES: Gastroesophageal reflux, Lo esophagus, family history of colon cancer, colorectal cancer screening, small hiatal hernia, mild diverticulosis, and small internal hemorrhoids. DESCRIPTION OF PROCEDURE: The patient was placed in the left lateral decubitus position. The Olympus video gastroscope was passed in the posterior oropharynx and upper esophagus under direct vision. The scope was passed slowly into the distal esophagus. The gastroesophageal junction appeared at 39 cm. There was a very minimal irregularity consistent with reflux and possible small areas of Lo mucosa. There was no evidence of any esophagitis nor any lesions. The scope entered into the stomach. There was a small hiatal hernia. The scope was advanced to the pylorus and the duodenum was cannulated to the descending portion. The duodenum including the bulb appeared normal without mass or ulceration. The scope was withdrawn back into the stomach. The gastric antrum and body appeared normal with good peristalsis. The scope was retroflexed visualizing the proximal stomach carefully, which appeared normal, without any sign of mass or ulceration, other than some small hyperplastic proximal gastric polyps. These were not biopsied as they had been in the past. The scope was withdrawn back to the esophagus. Multiple biopsies were obtained at the EG junction at 39 cm. Proximal to that, the esophageal mucosa appeared normal. The scope was withdrawn from the patient. He tolerated the procedure well and was turned around for the colonoscopy. The digital rectal exam revealed no abnormalities. The Olympus video pediatric colonoscope was then entered into the rectum and advanced easily to the cecum. Once in the cecum, I did identify normal-appearing cecal pouch with appendiceal orifice and a normal-appearing ileocecal valve. The entire cecum and ileocecal valve appeared normal. The scope was slowly withdrawn assessing all mucosal surfaces carefully. Preparation was excellent. I did not visualize any sign of polyps, colitis, nor angiodysplasia. There was a mild amount of sigmoid diverticulosis. In the rectum, scope was retroflexed, visualizing internal hemorrhoids, but no other pathology. The rectal mucosa appeared normal. The scope was straightened and withdrawn from the patient. He tolerated the procedure well and was returned to the recovery area in stable condition. IMPRESSION: 1. Mild sigmoid diverticulosis. 2. Small internal hemorrhoids. 3. Small hiatal hernia. 4. History of Lo esophagus. PLAN: The results of the biopsies will be checked. Assuming there is no dysplasia and given just a minimal amount of Lo mucosa, I would recommend a repeat upper endoscopy and colonoscopy in 5 years for further screening and surveillance. He will continue to use omeprazole either daily or as needed depending upon his symptoms. He was advised to see me again as needed in the interim. This has been discussed with his . MD MAYTE Lozano/TAMANNA / [id number]
== END 2023-12-08 09:22 | disposition home or self-care (01) ==
PROVIDERS: PCP Internal Medicine; Visit Provider Internal Medicine
PROC: (CPT 45378; principal; 2023-12-08 07:30)
DX: Z12.11 Encounter for screening for malignant neoplasm of colon (principal); K57.30 Diverticulosis of large intestine without perforation or abscess without bleeding; K64.8 Other hemorrhoids; Z80.0 Family history of malignant neoplasm of digestive organs; K21.9 Gastro-esophageal reflux disease without esophagitis; K22.70 Barrett's esophagus without dysplasia; K44.9 Diaphragmatic hernia without obstruction or gangrene; Z79.899 Other long term (current) drug therapy
CPT/HCPCS: 45378; 43239; 88305; 88313; J1596; J2704

== ENCOUNTER 2024-06-14 15:03 | Outpatient (AMB) | payer OTHER, SELFPAY ==
--- NOTE | 2024-06-14 15:07 | MHC.OFFVIS ---
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 He had episodes of SVT presented emergency room in September. Subsequently had few episodes of SVT 1 recorded on his smart watch. Patient was not able to dig this up during the office visit. He has been taking his Cardizem. He said his episodes are now easily controlled with vagal maneuvers. He has not had another ED presentation. In the past he had had paroxysmal atrial fibrillation which has not recurred clinically. He is participate in stress mitigation strategies. Avoid stimulants. Very concerned about congestive heart failure syndrome given his genetic analysis. In the past he has had normal structure of the heart. Remains very active and functional. No orthopnea, PND, leg edema. [facility] Medical History (Updated 06/20/24 @ 12:19 by Sajan Fernando MD) Paroxysmal atrial fibrillation Afib Pulmonary embolism Palpitations Obesity (BMI 30-39.9) Hypercholesterolemia Anxiety GERD (gastroesophageal reflux disease) Barretts esophagus Surgical History H/O heart surgery History of knee replacement procedure of left knee History of esophagogastroduodenoscopy (EGD) Hx of colonoscopy History of arthroscopy of left knee History of eye surgery History of umbilical hernia repair Family History Father No problems noted. Mother Colon cancer Sister Leukemia Brother Stomach cancer Social History Household Members: Spouse Housing: House Do you presently have visiting nurse or other home services: No Alcohol intake: current Alcohol intake frequency: holidays/special occasions only Alcohol type: wine Comment: 2-3 drinks /month at one time Patient Tobacco Use Status: Never used Tobacco e-Cigarette/Vaping Use: Never Used Second Hand Smoke Exposure: No service: No Current occupational status: employed Cognitive needs: No Hearing needs: No Vision needs: No Review of Systems Const Denies chills, Denies fatigue, Denies fever(s), Denies frequent falls, Denies weakness, Denies weight gain and Denies weight loss ENT Denies dizziness Card Denies chest pain, Denies leg edema, Denies lightheadedness, Denies palpitations, Denies dyspnea, Denies dyspnea on exertion, Denies orthopnea and Denies other (loss of consciousness) Resp Denies cough, Denies dyspnea and Denies dyspnea on exertion GI Denies hematochezia and Denies change in stool character Musc Denies abnormal gait, Denies muscle weakness, Denies numbness, Denies radiating pain into limb and Denies tingling Neuro Denies abnormal gait, Denies dizziness, Denies frequent falls, Denies numbness, Denies tingling and Denies weakness Endo Denies fatigue and Denies palpitations Physical Exam Vital Signs: Last Vital Signs Pulse 73 06/14/24 15:08 BP 120/80 06/14/24 15:08 BMI result Body Mass Index 30.2 Const General: cooperative, comfortable, alert, awake, anxious and well groomed Nutritional Appearance: overweight Orientation/consciousness: patient oriented x3 Limitations: no limitations Neck Neck: Yes trachea midline, Yes supple and Yes no JVD Resp Effort & Inspection: normal respiratory effort Auscultation: clear to auscultation bilaterally Cardio Jugular venous distension: no JVD Rate: regular rate Rhythm: regular rhythm Heart sounds: S1 normal heart sound present, S2 normal heart sound present, no click, no gallops and no murmurs GI Auscultation: normal bowel sounds Skin General skin exam: no rashes or lesions noted Neuro General: patient oriented x3 and no focal motor deficits Extrem General: Yes no clubbing, cyanosis or edema Office Procedures EKG Details: EKG shows normal sinus rhythm with left axis deviation with low-voltage QRS with Q-waves in lead 3 and AVF most likely suggestive of body habitus related pseudo infarct pattern [id number], Complete Assessment & Plan Assessment & Plan (1) SVT (supraventricular tachycardia): Code(s): I47.1 - Supraventricular tachycardia Category: Medical Plan: Supraventricular tachycardia with recurrence at this point time. One episode in September which was long and led to ED presentation. Since then he has had episodes at home although self-limiting. He said the episodes break before he can even do further vagal maneuvers. He usually tries to cough or do bearing down procedure when he gets episode of SVT. We discussed about avoiding stimulants. Continue Cardizem therapy. Mechanism of SVT was discussed although in the past we had attempted ablation but without success as this could not be induced during the ablation therapy. However if he continues to have episodes of SVT will require reconsideration for ablation. Stress mitigation strategies were discussed. (2) Paroxysmal atrial fibrillation: Code(s): I48.0 - Paroxysmal atrial fibrillation Category: Medical Plan: Paroxysmal atrial fibrillation without any obvious clinical recurrence. Will continue monitor clinically. If he has any recurrent of atrial fibrillation may consider alternative treatment plan. Avoidance of stimulants was discussed. Follow up in the clinic in 1 year after an echocardiogram. Thank you for allowing me to partake in his care Orders: Orders CA echo transthoracic complete 1 Year I48.0 - Paroxysmal atrial fibrillation Coding Level of Care Code Est Pt Level 4 (61098) Complex EM visit Add On G2211 Diagnoses SVT (supraventricular tachycardia) I47.1 Paroxysmal atrial fibrillation I48.0 CPT Codes EKG - CPT: 32455-[id number], Complete ([id number])
[2024-06-14 15:08] VITALS: BP 120/80; PULSE 73; BMI 30.2
== END 2024-06-14 15:42 | disposition home or self-care (01) ==
PROVIDERS: PCP Internal Medicine; Visit Provider Internal Medicine Cardiovascular Disease
DX: I47.10 Supraventricular tachycardia, unspecified (principal); I48.0 Paroxysmal atrial fibrillation
CPT/HCPCS: 93010; 99214

== ENCOUNTER → 2024-06-14 15:03 | Outpatient (BNVA) | payer OTHER, SELFPAY | PROVIDERS: PCP Internal Medicine; Visit Provider Internal Medicine Cardiovascular Disease | DX: I47.10 Supraventricular tachycardia, unspecified (principal); I48.0 Paroxysmal atrial fibrillation | CPT/HCPCS: 93005 ==

== ENCOUNTER 2024-09-16 07:33 | Outpatient (REF) | payer OTHER, SELFPAY ==
[2024-09-16 07:52] LABS: MANUAL DIFF FLAG NO
[2024-09-16 08:34] LABS: Basophils Percent Auto 0.4 % (0-2); Eosinophils Absolute Auto 0.1 X10*3/uL (0.0-0.4); Eosinophils Percent Auto 1.2 % (0-4); Hematocrit 45.4 % (42.0-52.0); Hemoglobin 15.6 g/dl (14.0-18.0); Imm Gran Abs Auto 0.01 X10*3/uL (0.00-0.03); Imm Gran Pct Auto 0.2 % (0.0-0.4); Lymphocytes Absolute Auto 1.8 X10*3/uL (1.2-4.9); Mean Corpuscular HGB Conc 34.4 g/dl (31.0-36.0); Mean Corpuscular Volume 90.1 fL (80.0-98.0); Mean Platelet Volume 10.5 fL (9.4-12.4); Monocytes Absolute Auto 0.4 X10*3/uL (0.1-1.2); Monocytes Percent Auto 8.5 % (2-11); Neutrophils Absolute Auto 2.8 x10*3/uL (2.0-8.3); Neutrophils Percent Auto 54.7 % (45-73); Platelet Count 183 X10*3/uL (160-400); Red Blood Count 5.04 X10*6/uL (4.60-5.80); Red Cell Distribution Width 12.4 % (11.0-16.0); White Blood Count 5.1 X10*3/uL (4.8-10.8)
[2024-09-16 08:41] LABS: Estimated Average Glucose 100 mg/dL; Hemoglobin A1c % 5.1 % (<6.0)
[2024-09-16 09:11] LABS: B Type Natriuretic Peptide 24 pg/mL (<100)
[2024-09-16 09:15] LABS: Alanine Aminotransferase 33 U/L (0-40); Albumin Level 4.2 g/dL (3.5-5.0); Alkaline Phosphatase 50 U/L (39-117); Anion Gap 13 (12-20); Aspartate Amino Transferase 24 U/L (5-37); Bilirubin Total 0.6 mg/dL (0.0-1.0); Blood Urea Nitrogen 25 mg/dL (9-16); Calcium 9.5 mg/dL (8.4-10.2); Carbon Dioxide 23 mmol/L (22-29); Chloride 109 mmol/L (96-108); Cholesterol 188 mg/dL (<200); Estimated Glomerular Filt Rate > 60; Glucose Random 94 mg/dL (60-115); HDL Cholesterol 50 mg/dL (>40); LDL Cholesterol Calculated 124 mg/dL (<100); Magnesium 2.1 mg/dL (1.6-2.6); Potassium 4.5 mmol/L (3.3-5.1); Sodium 140 mmol/L (135-145); Total Protein 7.4 g/dL (6.5-8.0); Triglycerides 73 mg/dL (<150)
[2024-09-16 09:33] LABS: Free T4 (Free Thyroxine) 1.22 ng/dL (0.71-1.85); Thyroid Stimulating Hormone 0.64 uIU/mL (0.32-4.0)
[2024-09-16 09:40] LABS: Folate 6.8 ng/mL (> or = 4.0); Prostate Specific Antigen Scr 2.51 ng/mL (<0.05-4.0); Vitamin B12 570 pg/mL (200-900)
== END 2024-09-16 07:34 | disposition home or self-care (01) ==
LOC: HO.LAB 07:33
PROVIDERS: PCP Internal Medicine; Visit Provider Internal Medicine
DX: I48.0 Paroxysmal atrial fibrillation (principal); E78.00 Pure hypercholesterolemia, unspecified; Z12.5 Encounter for screening for malignant neoplasm of prostate; Z13.1 Encounter for screening for diabetes mellitus
CPT/HCPCS: 36415; 80053; 80061; 82607; 82746; 83036; 83735; 83880; 84153; 84439; 84443; 85025

== ENCOUNTER 2024-11-12 13:38 | Outpatient (AMB) | payer OTHER, SELFPAY ==
--- NOTE | 2024-11-12 13:42 | A.OFFPC_ITS ---
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 Required: No Accompanied by: Self / Same As Patient Allergies No Known Allergies Allergy (Verified 11/12/24 13:46) Medication List - Last Reconciled 11/12/24 by Ninfa Pena MD cholecalciferol (vitamin D3) (Vitamin D3) 25 mcg PO BEDTIME diltiazem HCl CD 120 mg PO DAILY 90 days magnesium 200 mg PO DAILY omeprazole 20 mg PO DAILY PRN pravastatin 20 mg PO BEDTIME 90 days Tobacco use date assessed: 11/12/24 Dental Screening Dental Screen Date: 11/12/24 Did you have a dental visit in the last 12 months?: No Did you have a dental problem in the last 6 months where you did not have access to dental care?: No Was dental information given to patient?: Patient has dentist [facility] Medical History (Updated 11/12/24 @ 14:14 by Ninfa Pena MD) Paroxysmal atrial fibrillation Afib Pulmonary embolism Palpitations Obesity (BMI 30-39.9) Hypercholesterolemia Anxiety GERD (gastroesophageal reflux disease) Barretts esophagus Surgical History H/O heart surgery History of knee replacement procedure of left knee History of esophagogastroduodenoscopy (EGD) Hx of colonoscopy History of arthroscopy of left knee History of eye surgery History of umbilical hernia repair Family History Father No problems noted. Mother Colon cancer Sister Leukemia Brother Stomach cancer Social History Household Members: Spouse Housing: House Do you presently have visiting nurse or other home services: No Alcohol intake: current Alcohol intake frequency: holidays/special occasions only Alcohol type: wine Comment: 2-3 drinks /month at one time Patient Tobacco Use Status: Never used Tobacco e-Cigarette/Vaping Use: Never Used Second Hand Smoke Exposure: No service: No Current occupational status: employed Cognitive needs: No Hearing needs: No Vision needs: No Questionnaire PHQ-9 Over the last 2 weeks, how often have you been bothered by any of the following problems? 1. Little interest or pleasure in doing things: not at all 2. Feeling down, depressed, or hopeless: not at all 3. Trouble falling or staying asleep, or sleeping too much: not at all 4. Feeling tired or having little energy: not at all 5. Poor appetite or overeating: not at all 6. Feeling bad about yourself - or that you are a failure or have let yourself or your family down: not at all 7. Trouble concentrating on things, such as reading the newspaper or watching television: not at all 8. Moving or speaking so slowly that other people could have noticed. Or the opposite - being so fidgety or restless that you have been moving around a lot more than usual: not at all 9. Thoughts that you would be better off or of hurting yourself in some way: not at all Total score: 0 Depression Screening Interpretation: Negative Depression Screening Done: Yes 70819 - PHQ-9 Billing: Yes Source: Developed by Drs. Josué Juan, Marylou Aguero, David Fierro and colleagues, with an educational jonathon from [employer]. Thrive Questionnaire Date Thrive assessed: 11/12/24 I am a: Patient What is your living situation today?: I have a steady place to live Within the past 12 months, did the food you bought not last and you didn't have the money to get more?: I choose not to answer this question Within the past 12 months, did you worry whether your food would run out before you got money to buy more?: I choose not to answer this question Do you have trouble paying for medicines?: I choose not to answer this question Do you have trouble getting transportation to medical appointments?: I choose not to answer this question Do you have trouble paying your heating and electricity bill?: I choose not to answer this question Do you have trouble taking care of your child, family member or friend?: I choose not to answer this question Do you have trouble with day-to-day activities such as bathing, preparing meals, shopping, managing finances, etc.?: I choose not to answer this question Are you currently unemployed and looking for a job?: I choose not to answer this question Are you interested in more education?: I choose not to answer this question Please select the resources that you would like help with: None Currently or been in a relationship where the following occur: I choose not to answer THRIVE Score: 0 AUDIT C Alcohol Use Questionnaire (AUDIT-C) 1. How often do you have a drink containing alcohol?: Monthly or less 2. How many drinks containing alcohol do you have on a typical day when you are drinking?: 1 or 2 3. How often do you have six or more drinks on one occasion?: Never Total Score: 1 EDGAR-7 AMB Questionnaire EDGAR-7 Date EDGAR - 7 assessed: 11/12/24 Feeling nervous, anxious, or on edge: 0 = Not at all Not being able to stop or control worryin = Not at all Worrying too much about different things: 0 = Not at all Trouble relaxin = Not at all Being so restless that it is hard to sit still: 0 = Not at all Becoming easily annoyed or irritable: 0 = Not at all Feeling afraid as if something awful might happen: 0 = Not at all Total EDGAR-7 score (0-4 normal; 5-9 mild; 10-14 moderate; 15-21 severe): 0 Source: Developed by Drs. Josué Juan, Marylou Aguero, David Fierro and colleagues, with an educational jonathon from [employer]. EDGAR-7 Assessment Billing EDGRA-7 Assessment Tool: EDGAR-7 Assessment 33267 Review of Systems Const Denies poor appetite and Denies weakness Eyes Denies no additional complaints ENT Reports Normal hearing present, Denies dizziness, Denies nasal congestion, Denies tinnitus and Denies sore throat Card Denies chest pain, Denies syncope, Denies rapid heart rate and Denies dyspnea Resp Denies cough and Denies dyspnea GI Denies change in stool character, Reports constipation, Denies diarrhea, Denies nausea and Denies vomiting Denies dysuria and Denies urinary frequency Neuro Reports Normal hearing present, Denies confusion, Denies dizziness, Denies syncope and Denies weakness Psych Denies confusion Physical exam (Primary Care) Vital Signs: Last Vital Signs Temp 96.9 F 11/12/24 13:43 Pulse 70 11/12/24 13:43 BP 120/78 11/12/24 13:43 Pulse Ox 97 11/12/24 13:43 Oxygen Delivery Method Room Air 11/12/24 13:43 BMI result Body Mass Index 26.9 Tobacco/Smoking Status: Tobacco use Status Tobacco use date assessed 11/12/24 11/12/24 13:47 Patient Tobacco Use Status Never used Tobacco 11/12/24 13:44 e-Cigarette/Vaping Use Never Used 11/12/24 13:44 PHQ-9: PHQ-9 Score PHQ-9: Total score 0 11/12/24 15:37 Depression Screening Interpretation: Negative Thrive Assessment: Date of Thrive Assessment Date Thrive assessed 11/12/24 11/12/24 13:44 Currently or been in a relationship where the following occur: I choose not to answer Const General: No confusion Orientation/consciousness: No confusion HENMT Head: Yes normocephalic Ears: external ears normal and TM's normal bilaterally Face and sinus: Yes normal facial exam Mouth: moist mucous membranes Throat: Yes tonsils normal Eyes Conjunctivae: conjunctivae normal Pupils: Equal, round and reactive pupils present and Pupil accommodation reflex normal Direct Ophthalmoscopy: normal light reflex Neck Neck: No lymphadenopathy Thyroid: Thyroid normal Chest Chest palpation & inspection: normal inspection of the chest Resp Effort & Inspection: normal respiratory effort and no audible wheezes Auscultation: clear to auscultation bilaterally, no crackles, no wheezes and lung sounds not diminished Cardio Rate: regular rate Rhythm: regular rhythm Peripheral pulses: radial pulses present and dorsalis pedis present GI Other: guaiac negative and prostate normal Palpation (GI): no masses Auscultation: normal bowel sounds and normoactive bowel sounds Male General Exam: Yes normal external exam Skin General skin exam: no rashes or lesions noted Rashes: no rashes Neuro General: No confusion Cranial nerves: Yes Equal, round and reactive pupils present and Yes Normal hearing present Cognition (Neuro): normal cognition Gait exam (Neuro): Normal gait present Motor exam (neuro): 5/5 motor strength present throughout Deep tendon reflexes (DTR's): Right brachioradialis reflex intensity grade: 2+, Left brachioradialis reflex intensity grade: 2+, Right patellar reflex intensity grade: 2+ and Left patellar reflex intensity grade: 2+ Extrem General: No edema Immunizations Tenivac (PF) 5 Lf unit-2 Lf unit/0.5 mL intramuscular suspension Performing Provider: Ninfa Pena MD Performing Location: [facility] Administered by: KASI Vila on 11/12/24 15:38 Dose Route Admin Location Dispensed Lot Number Expiration Date NDC Can Handler 0.5 mL IM Left Deltoid 0.5 mL [id number] 09/04/26 [id number] [employer]/ VIS Given Date VIS Provided VIS Publication Date 11/12/24 Single Vaccine 21 Eligibility Eligibility Date Funding Source Not [facility] Eligible 11/12/24 Private Coding Level of Care Code Est Pt Prev Care 40-64y(87672) Diagnoses Annual physical exam Z00.00 Paroxysmal atrial fibrillation I48.0 Hypercholesterolemia E78.00 Overweight E66.3 SVT (supraventricular tachycardia) I47.1 Lo's esophagus without dysplasia K22.70 Lo's esophagus type: without dysplasia Additional Codes EDGAR-7 Assessment Billing - EDGAR-7 Assessment Tool: EDGAR-7 Assessment 29474 ([id number]) PHQ-9 - 76621 - PHQ-9 Billing: Yes ([id number]) Assessment & Plan Assessment & Plan (1) Annual physical exam: Code(s): Z00.00 - Encounter for general adult medical examination without abnormal findings Category: Medical Plan: Patient is advised to eat healthy, keep well hydrated, keep active and have adequate sleep. (2) Paroxysmal atrial fibrillation: Comment: September 2022 pulmonary vein isolation and ablation Code(s): I48.0 - Paroxysmal atrial fibrillation Category: Medical Plan: Continue to follow-up with cardiology. (3) Hypercholesterolemia: Code(s): E78.00 - Pure hypercholesterolemia, unspecified Category: Medical Plan: Avoid fried foods, chicken skin, eggs, butter margarine, pastries and meat. Be it pork or beef they have a lot of cholesterol on pravastatin 20 mg at bedtime (4) Overweight: Code(s): E66.3 - Overweight Category: Medical Plan: Continue with diet and exercise (5) SVT (supraventricular tachycardia): Code(s): I47.1 - Supraventricular tachycardia Category: Medical Plan: Patient is being followed up by Cardiology and on diltiazem 120 mg once a day (6) Barretts esophagus: Comment: December Code(s): K22.70 - Lo's esophagus without dysplasia Category: Medical Qualifiers: Lo's esophagus type: without dysplasia Qualified Code(s): K22.70 - Lo's esophagus without dysplasia Plan: Avoid the foods that causes that usually spicy foods, tomato products, juices, coffee, soda and foods that your sensitive to. After eating do not lie down, allow 3-4 hours before in lie down. And keep the head of bed above 30 degrees to avoid the acid from going up. Plan History of Present Illness The patient is a 64-year-old male presenting for a wellness examination. He has a history of Lo's Esophagus, Supraventricular Tachycardia, Atrial Fibrillation, and Hypercholesterolemia. The patient reports a significant 24- pound weight loss attributed to dietary changes. His last interventions for SVT including attempted ablation were unsuccessful, and he is considering future options. Blood tests from September 2024 were normal, and the patient reports no new health issues or surgeries. Family history includes malignancies such as colon and stomach cancers. Health Maintenance - Scheduled for echocardiogram in one year from last cardiology visit. - Advised endoscopy and colonoscopy in five years (due to family history of gastrointestinal cancers). - Recent normal blood work, kidney function, and lipid profile. - Shingles vaccination received. - Tetanus vaccination due; administered during visit. Social History - Very limited alcohol use, approximately three drinks a year. - No use of tobacco or recreational drugs. - Recent dietary change from ketogenic to Mediterranean diet. - Reports engaging in regular exercise and maintaining adequate hydration, especially during his previous ketosis regimen. - Family history includes concerns regarding colon cancer, stomach cancer, and leukemia. Review of Systems - Cardiovascular: Reports history of SVT and atrial fibrillation. Denies dizziness, syncope, or palpitations. - Gastrointestinal: Denies dysphagia, nausea, or vomiting. Reports occasional heartburn treated with Omeprazole. - Genitourinary: Denies nocturia; reports waking once per night at most. - Neurological: Reports occasional unsteadiness but denies true dizziness or syncope. - Respiratory: Denies shortness of breath. - Skin: Denies any changes, rashes, or lesions. - Musculoskeletal: Recent shoulder impingement issues, otherwise denies any new joint pains. Physical Exam General: Cooperative, healthy appearing, comfortable, no acute distress and well developed Orientation: Patient oriented x3 Limitations: No limitations Head: Normal to inspection Ears: Hearing grossly normal bilaterally Nose: Normal external nose present Face and sinus: Normal facial exam Eyes: Appearance normal, both eyes and all related structures Neck: Normal visual inspection and Yes full ROM Respiratory: Normal respiratory effort and able to speak in complete sentences. Clear to auscultation bilaterally Cardiovascular: Regular rate and rhythm. Normal S1 and S2 GI: Normal to inspection. Soft to palpation and nontender Skin: No rashes or lesions noted Neuro: Patient oriented x3 Extremities: Normal to inspection Results - Labs: Normal blood count, normal electrolytes, stable renal function, normal liver function, magnesium levels adequate, cholesterol LDL at 124. - Tests: Recent EGD and colonoscopy in December 2023. - Screening: Up to date on shingles vaccination and tetanus administered during the visit. Plan 1. Immunization updates included administering a tetanus booster.: Patient was informed and verbally consented to the use of an ambient scribe for clinic note documentation during this visit. Discussion Notes I discussed with the patient the management strategies for his SVT, including the consideration of potential future cardiac ablation should his symptoms become problematic again. We discussed the efficacy and necessity of maintaining his current regimen of Diltiazem and Pravastatin. For cholesterol, I emphasized the importance of diet and exercise alongside medication, particularly as the patient shifts to a Mediterranean diet. We discussed hernia risks associated with lifting heavy objects and corrective measures to mitigate these risks, including lifestyle changes to avoid exacerbation. The importance of regular screenings given his family cancer history was reinforced with him understanding the need for colonoscopy and endoscopy in due time. I also ensured the patient was up to date with his tetanus vaccination, administering it on-site. Patient Instructions - Continue Diltiazem 120 mg daily for heart rate control. - Take Pravastatin 20 mg at bedtime for cholesterol management. - Transition to a Mediterranean diet; limit carbohydrates and sugar intake. - Avoid heavy lifting to prevent exacerbating the hernia risk. - Follow up with cardiology as scheduled for monitoring and echocardiogram. - Attend orthopedic follow-ups for shoulder management. - Next colonoscopy and endoscopy due in December 2028. - Contact us if experiencing intense chest pain or prolonged heart palpitations. - Drink plenty of water and maintain current lifestyle modifications. - Tetanus booster administered today; next dose due in 10 years. Orders: Orders Td Immunization Today Z23 - Encounter for immunization
[2024-11-12 13:43] VITALS: BP 120/78; PULSE 70; TEMP 36.1; O2SAT 97; BMI 26.9
--- OUTSIDE RECORDS SUMMARY | 2024-11-12 13:43 | XMS_ITS ---
Author Organization [facility] Address [address] [place] [id number] Care Team Providers Care Candy Packer Name Role Phone Po Ninfa JIMENEZ Primary Care Provider Josué Guillermo [phone] REASON FOR VISIT Patient presents today for a colon screening Medications Medication SIG (Take, Route, Frequency, Duration) Notes Start Date End Date Status Pravastatin Sodium 20 MG TAKE 1 TABLET B Y MOUTH AT BEDTIME Oral for 90 Active dilTIAZem HCl ER Coated Beads 120 MG Oral for 90 Active Omeprazole 20 MG 1 capsule Orally Onc e a day for 30 04/11/2015 Active Omeprazole 20 MG TAKE 1 CAPSULE BY [facility] EVERY DAY IN THE MORNING for 90 Active Vitamin D Active Simvastatin 10mg 1 tablet in the even ing Orally Once a day Active Social History Alcohol Screen Question Answer Notes Did you have a drink contain ing alcohol in the past year? Yes How often did you have a dri nk containing alcohol in the past year? 2 to 4 times a month (2 points) How many drinks did you have on a typical day when you were drinking in the past year? 1 or 2 drinks (0 point) How often did you have 6 or more drinks on one occasion in the past year? Never (0 point) Points 2 Interpretation Negative Section Notes: Nonsmoker; no sig. alcohol Problems Problem Type SNOMED Code ICD Code Onset Dates Problem Status W/U Status Risk Notes Problem [id number] Elevated liver function tests (R79.89) Active confirmed Vital Signs Temperature 97.1 degrees Fahrenheit 06/04/20 23 Blood pressure systolic 000 mm Hg 06/04/20 23 Blood pressure diastolic 00 mm Hg 023 Height 72 in 06/04/2023 Weight 215 lbs 06/04/2023 BMI 29.16 kg/m2 06/04/2023 Encounters Encounter Location Date Provider Diagnosis [facility] [address] [place] [address] 06/04/2023 Josué Borges Encounter for screen ing for malignant neoplasm of colon Z12.11 ; Barretts esophagus without dysplasia K22.70 ; Family history of colon cancer Z80.0 ; Gastroesophageal reflux disease, unspecified whether esophagitis present K21.9 and Elevated liver function tests R79.89 Assessments Encounter Date Diagnosis (ICD Code) Assessment Notes Treatment Notes Treatment Clinical Notes Section Notes 06/04/2023 Encounter for screening for malignant neoplasm of colon (ICD-10 - Z12.11) Overall, Lisa appears quite well and seems to be doing very well from a GI standpoint, as well as in general. His reflux seems well-controlled on his daily omeprazole, and has also improved by losing weight and watching his diet carefully. I did advise him to continue his daily omeprazole, but try to use it every other day or even stop it all together to see if having lost weight and eating carefully will suffice in keeping his reflux symptoms under control without being on a chronic PPI given his concerns about the recent report of PPIs being associated with dementia. However, I did advise him that the studies are not definitive and there's been no causation found between PPIs and dementia. I advised him to continue to use the PPI if needed for his symptoms of reflux. I did recommend a followup upper endoscopy in regard to the history of Lo's esophagus found in June 2021. I also recommended a followup screening colonoscopy to be done on the same day as his upper endoscopy given the family history of colon cancer and his last colonoscopy being done in December of 2017. We are going to schedule both procedures for the middle of 2023 as that will be about 2 1/2 years since his upper endoscopy and 6 years since his colonoscopy. Given all of his previously negative colonoscopies and no worrisome symptoms I don't think the colonoscopy needs to be done any sooner at this point. We did review the rationale for the colonoscopy in regard to colorectal cancer prevention and/or early detection. Full consent was obtained from him for the procedures, including risks of bleeding and perforation. The procedures will be done with monitored anesthesia care. He does have a followup appointment with Dr. Fernando and I did advise him to let me know if there are any changes in regard to his cardiac status and/or his medications, particularly with regard to any anticoagulation. In regard to the slightly elevated LFTs from earlier in the year, I do not think this is of any clinical significance nor worrisome. His liver ultrasound did not show any particular abnormalities. I suspect the slight elevation of liver enzymes is in relation to some fatty liver and perhaps from his statin medication. We can check a followup liver profile at some point and if it remains elevated I would check a liver workup including iron studies, viral serologies, and autoimmune studies. However I think the yield on all those would be quite low. Lisa was comfortable with this plan. Thank you again for allowing me to participate in Lisa's care. I shall continue to keep you advised of his progress. 06/04/2023 Barretts esophagus without dysplasia (ICD-10 - K22.70) Overall, Lisa appears quite well and seems to be doing very well from a GI standpoint, as well as in general. His reflux seems well-controlled on his daily omeprazole, and has also improved by losing weight and watching his diet carefully. I did advise him to continue his daily omeprazole, but try to use it every other day or even stop it all together to see if having lost weight and eating carefully will suffice in keeping his reflux symptoms under control without being on a chronic PPI given his concerns about the recent report of PPIs being associated with dementia. However, I did advise him that the studies are not definitive and there's been no causation found between PPIs and dementia. I advised him to continue to use the PPI if needed for his symptoms of reflux. I did recommend a followup upper endoscopy in regard to the history of Lo's esophagus found in June 2021. I also recommended a followup screening colonoscopy to be done on the same day as his upper endoscopy given the family history of colon cancer and his last colonoscopy being done in December of 2017. We are going to schedule both procedures for the middle of 2023 as that will be about 2 1/2 years since his upper endoscopy and 6 years since his colonoscopy. Given all of his previously negative colonoscopies and no worrisome symptoms I don't think the colonoscopy needs to be done any sooner at this point. We did review the rationale for the colonoscopy in regard to colorectal cancer prevention and/or early detection. Full consent was obtained from him for the procedures, including risks of bleeding and perforation. The procedures will be done with monitored anesthesia care. He does have a followup appointment with Dr. Fernando and I did advise him to let me know if there are any changes in regard to his cardiac status and/or his medications, particularly with regard to any anticoagulation. In regard to the slightly elevated LFTs from earlier in the year, I do not think this is of any clinical significance nor worrisome. His liver ultrasound did not show any particular abnormalities. I suspect the slight elevation of liver enzymes is in relation to some fatty liver and perhaps from his statin medication. We can check a followup liver profile at some point and if it remains elevated I would check a liver workup including iron studies, viral serologies, and autoimmune studies. However I think the yield on all those would be quite low. Lisa was comfortable with this plan. Thank you again for allowing me to participate in Lisa's care. I shall continue to keep you advised of his progress. 06/04/2023 Family history of colon cancer (ICD-10 - Z80.0) Overall, Lisa appears quite well and seems to be doing very well from a GI standpoint, as well as in general. His reflux seems well-controlled on his daily omeprazole, and has also improved by losing weight and watching his diet carefully. I did advise him to continue his daily omeprazole, but try to use it every other day or even stop it all together to see if having lost weight and eating carefully will suffice in keeping his reflux symptoms under control without being on a chronic PPI given his concerns about the recent report of PPIs being associated with dementia. However, I did advise him that the studies are not definitive and there's been no causation found between PPIs and dementia. I advised him to continue to use the PPI if needed for his symptoms of reflux. I did recommend a followup upper endoscopy in regard to the history of Lo's esophagus found in June 2021. I also recommended a followup screening colonoscopy to be done on the same day as his upper endoscopy given the family history of colon cancer and his last colonoscopy being done in December of 2017. We are going to schedule both procedures for the middle 2023 as that will be about 2 1/2 years since his upper endoscopy and 6 years since his colonoscopy. Given all of his previously negative colonoscopies and no worrisome symptoms I don't think the colonoscopy needs to be done any sooner at this point. We did review the rationale for the colonoscopy in regard to colorectal cancer prevention and/or early detection. Full consent was obtained from him for the procedures, including risks of bleeding and perforation. The procedures will be done with monitored anesthesia care. He does have a followup appointment with Dr. Fernando and I did advise him to let me know if there are any changes in regard to his cardiac status and/or his medications, particularly with regard to any anticoagulation. In regard to the slightly elevated LFTs from earlier in the year, I do not think this is of any clinical significance nor worrisome. His liver ultrasound did not show any particular abnormalities. I suspect the slight elevation of liver enzymes is in relation to some fatty liver and perhaps from his statin medication. We can check a followup liver profile at some point and if it remains elevated I would check a liver workup including iron studies, viral serologies, and autoimmune studies. However I think the yield on all those would be quite low. Lisa was comfortable with this plan. Thank you again for allowing me to participate in Lisa's care. I shall continue to keep you advised of his progress. 06/04/2023 Gastroesophageal reflux disease, unspecified whether esophagitis present (ICD-10 - K21.9) Overall, Lisa appears quite well and seems to be doing very well from a GI standpoint, as well as in general. His reflux seems well-controlled on his daily omeprazole, and has also improved by losing weight and watching his diet carefully. I did advise him to continue his daily omeprazole, but try to use it every other day or even stop it all together to see if having lost weight and eating carefully will suffice in keeping his reflux symptoms under control without being on a chronic PPI given his concerns about the recent report of PPIs being associated with dementia. However, I did advise him that the studies are not definitive and there's been no causation found between PPIs and dementia. I advised him to continue to use the PPI if needed for his symptoms of reflux. I did recommend a followup upper endoscopy in regard to the history of Lo's esophagus found in June 2021. I also recommended a followup screening colonoscopy to be done on the same day as his upper endoscopy given the family history of colon cancer and his last colonoscopy being done in December of 2017. We are going to schedule both procedures for the middle of 2023 as that will be about 2 1/2 years since his upper endoscopy and 6 years since his colonoscopy. Given all of his previously negative colonoscopies and no worrisome symptoms I don't think the colonoscopy needs to be done any sooner at this point. We did review the rationale for the colonoscopy in regard to colorectal cancer prevention and/or early detection. Full consent was obtained from him for the procedures, including risks of bleeding and perforation. The procedures will be done with monitored anesthesia care. He does have a followup appointment with Dr. Fernando and I did advise him to let me know if there are any changes in regard to his cardiac status and/or his medications, particularly with regard to any anticoagulation. In regard to the slightly elevated LFTs from earlier in the year, I do not think this is of any clinical significance nor worrisome. His liver ultrasound did not show any particular abnormalities. I suspect the slight elevation of liver enzymes is in relation to some fatty liver and perhaps from his statin medication. We can check a followup liver profile at some point and if it remains elevated I would check a liver workup including iron studies, viral serologies, and autoimmune studies. However I think the yield on all those would be quite low. Lisa was comfortable with this plan. Thank you again for allowing me to participate in Lisa's care. I shall continue to keep you advised of his progress. 06/04/2023 Elevated liver function tests (ICD-10 - R79.89) Overall, Lisa appears quite well and seems to be doing very well from a GI standpoint, as well as in general. His reflux seems well-controlled on his daily omeprazole, and has also improved by losing weight and watching his diet carefully. I did advise him to continue his daily omeprazole, but try to use it every other day or even stop it all together to see if having lost weight and eating carefully will suffice in keeping his reflux symptoms under control without being on a chronic PPI given his concerns about the recent report of PPIs being associated with dementia. However, I did advise him that the studies are not definitive and there's been no causation found between PPIs and dementia. I advised him to continue to use the PPI if needed for his symptoms of reflux. I did recommend a followup upper endoscopy in regard to the history of Lo's esophagus found in June 2021. I also recommended a followup screening colonoscopy to be done on the same day as his upper endoscopy given the family history of colon cancer and his last colonoscopy being done in December of 2017. We are going to schedule both procedures for the middle of 2023 as that will be about 2 1/2 years since his upper endoscopy and 6 years since his colonoscopy. Given all of his previously negative colonoscopies and no worrisome symptoms I don't think the colonoscopy needs to be done any sooner at this point. We did review the rationale for the colonoscopy in regard to colorectal cancer prevention and/or early detection. Full consent was obtained from him for the procedures, including risks of bleeding and perforation. The procedures will be done with monitored anesthesia care. He does have a followup appointment with Dr. Fernando and I did advise him to let me know if there are any changes in regard to his cardiac status and/or his medications, particularly with regard to any anticoagulation. In regard to the slightly elevated LFTs from earlier in the year, I do not think this is of any clinical significance nor worrisome. His liver ultrasound did not show any particular abnormalities. I suspect the slight elevation of liver enzymes is in relation to some fatty liver and perhaps from his statin medication. We can check a followup liver profile at some point and if it remains elevated I would check a liver workup including iron studies, viral serologies, and autoimmune studies. However I think the yield on all those would be quite low. Lisa was comfortable with this plan. Thank you again for allowing me to participate in Lisa's care. I shall continue to keep you advised of his progress. Plan Of Treatment Future Test Test Name Order Date UPPER GI ENDOSCOPY 06/04/2023 COLONOSCOPY 06/04/2023 Next Appt Details Follow Up: prn, Reason: Progress Notes * LISA CANASDOB:1960 ( 63 yo M)Acc No.[id number]:06/04/2023 Progress Notes Patient:?LISA CANAS Provider:?Josué Borges MD :1960???Age:62 Y???Sex:Male Agustin e:06/04/2023 Address:[address] [place] [address] Pcp:Ninfa Pena MD Subjective: * Chief Complaints: * ???Patient presents today fo r a colon screening * HPI: ???incontinence:? I saw Lisa in followup today in regard to his chronic gastroesophageal reflux with associated Lo's esophagus, family history of colon cancer, and need for colorectal cancer screening. ?I last saw Lisa in February of 2022. At that time he was recuperating from his previous knee replacement with associated postoperative complications of pulmonary emboli and atrial fibrillation. He was doing well on his omeprazole in regard to his reflux as well. Since that time he reports that he has continued to feel well from a GI standpoint. He has been exercising regularly, watching his diet, and has lost at least 20 pounds intentionally since last year. He remains on one omeprazole daily with good relief of heartburn symptoms. He denies any significant heartburn, dysphagia, nausea, vomiting, early satiety, nor anorexia. His bowel movements have remained regular and without any sign of hematochezia nor melena. He denies any abdominal pain nor jaundice. ?He did ask me about recent reports of association between the chronic use of omeprazole and dementia. ?Labs on December 26 revealed a normal CBC, normal chemistries, normal TSH, and normal B12 and folate levels. He did have a slight elevation of his LFTs in December with an AST of 50 and ALT of 80, but with a total bilirubin of 1.2 and alkaline phosphatase of 56. Previous ultrasounds of his abdomen revealed a small hepatic hemangioma, but the liver otherwise appeared unremarkable. * ROS:?General/Constitutional:?Change in appetite?denies.?Chills?denies.?Fatigue?denies.?Ophthalmologic:?Patient denies? Negative..?ENT:?Patient denies?Negative..?Respiratory:?Patient denies?No coughing/hemoptysis..?Cardiovascular:?Patient denies? No chest pain/orthopnea..?Gastrointestinal:?Comments?See HPI for details.?Genitourinary:?Patient denies? No dysuria/hematuria..?Musculoskeletal:?Patient denies? No specific arthralgias/myalgias..?Skin:?Patient denies?No rash/pruritus..?Neurologic:?Patient denies? No headaches/seizures..?Psychiatric:?Patient denies?Negative..? * Medical History:? * Surgical History:?Umbilical hernia repair as a child Left knee arthroscopy x 2 Left knee replacement in November of 2021--complicated by atrial fibrillation and a pulmonary embolus in January of 2022 * Hospitalization/Major Diagno stic Procedure:?No Hospitalization History. * Family History:?Father: dece ased.?Mother: , of colon cancer in her 40, diagnosed with Colon cancer.?Siblings: alive, brother stomach cancer 2020.? The patient's mother of colon cancer in her 40's. * Social History:?Tobacco Use:?Tobacco Use/Smoking?Are you a: nonsmoker.?Drugs/Alcohol:?Alcohol Screen?Did you have a drink containing alcohol in the past year??Yes,?How often did you have a drink containing alcohol in the past year??2 to 4 times a month (2 points),?How many drinks did you have on a typical day when you were drinking in the past year??1 or 2 drinks (0 point),?How often did you have 6 or more drinks on one occasion in the past year??Never (0 point),?Points?2,?Interpretation?Negative.?Miscellaneous:?Marital status: . 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 ???Nonsmoker; no sig. alcohol. * Medications:?TakingVitamin D Simvastatin 10mg 1 tablet in the evening Orally Once a dayOmeprazole 20 MG Tablet Delayed Release 1 capsule Orally Once a dayOmeprazole 20 MG Capsule Delayed Release TAKE 1 CAPSULE BY MOUTH EVERY DAY IN THE MORNING Pravastatin Sodium 20 MG Tablet TAKE 1 TABLET BY MOUTH AT BEDTIME Oral dilTIAZem HCl ER Coated Beads 120 MG Capsule Extended Release 24 Hour Oral Taking Vitamin D Taking Simvastatin 10mg 1 tablet in the evening Orally Once a dayTaking Omeprazole 20 MG Tablet Delayed Release 1 capsule Orally Once a dayTaking Omeprazole 20 MG Capsule Delayed Release TAKE 1 CAPSULE BY MOUTH EVERY DAY IN THE MORNING Taking Pravastatin Sodium 20 MG Tablet TAKE 1 TABLET BY MOUTH AT BEDTIME Oral Taking dilTIAZem HCl ER Coated Beads 120 MG Capsule Extended Release 24 Hour Oral DiscontinuedXarelto 20 MG Tablet Oral Medication List reviewed and reconciled with the patientDiscontinued Xarelto 20 MG Tablet Oral Medication List reviewed and reconciled with the patient * Allergies:?yes[Allergies Rhonda ified] Objective: * Vitals:?Wt: 215 lbs, Ht: 72 in, BMI:29.16 Index, BP: 000/00 mm Hg, Temp: 97.1. * Examination: ???General Examination: ?GENERAL APPEARANCE:?pleasant, well nourished, well developed, in no acute distress.?EYES:?sclera non-icteric.?ORAL CAVITY:?mucosa moist.?NECK/THYROID:?no cervical lymphadenopathy, neck supple.?SKIN:?nonjaundiced, no spider angiomata..?HEART:?S1, S2 normal.?LUNGS:?clear to auscultation bilaterally.?ABDOMEN:?normal bowel sounds, no guarding or rigidity, no hepatosplenomegaly, no masses palpable, soft, nontender, nondistended..?EXTREMITIES:?no edema.?NEUROLOGIC:?alert and oriented.? Assessment: * Assessment: 1.?Barretts esophagus withou t dysplasia - K22.70 (Primary)?2.?Encounter for screening for malignant neoplasm of colon - Z12.11?3.?Family history of colon cancer - Z80.0?4.?Gastroesophageal reflux disease, unspecified whether esophagitis present - K21.9?5.?Elevated liver function tests - R79.89? Overall, Lisa appears quite well and seems to be doing very well from a GI standpoint, as well as in general. His reflux seems well-controlled on his daily omeprazole, and has also improved by losing weight and watching his diet carefully. I did advise him to continue his daily omeprazole, but try to use it every other day or even stop it all together to see if having lost weight and eating carefully will suffice in keeping his reflux symptoms under control without being on a chronic PPI given his concerns about the recent report of PPIs being associated with dementia. However, I did advise him that the studies are not definitive and there's been no causation found between PPIs and dementia. I advised him to continue to use the PPI if needed for his symptoms of reflux. I did recommend a followup upper endoscopy in regard to the history of Lo's esophagus found in June 2021. I also recommended a followup screening colonoscopy to be done on the same day as his upper endoscopy given the family history of colon cancer and his last colonoscopy being done in December of 2017. We are going to schedule both procedures for the middle of 2023 as that will be about 2 1/2 years since his upper endoscopy and 6 years since his colonoscopy. Given all of his previously negative colonoscopies and no worrisome symptoms I don't think the colonoscopy needs to be done any sooner at this point. We did review the rationale for the colonoscopy in regard to colorectal cancer prevention and/or early detection. Full consent was obtained from him for the procedures, including risks of bleeding and perforation. The procedures will be done with monitored anesthesia care. He does have a followup appointment with Dr. Fernando and I did advise him to let me know if there are any changes in regard to his cardiac status and/or his medications, particularly with regard to any anticoagulation. In regard to the slightly elevated LFTs from earlier in the year, I do not think this is of any clinical significance nor worrisome. His liver ultrasound did not show any particular abnormalities. I suspect the slight elevation of liver enzymes is in relation to some fatty liver and perhaps from his statin medication. We can check a followup liver profile at some point and if it remains elevated I would check a liver workup including iron studies, viral serologies, and autoimmune studies. However I think the yield on all those would be quite low. Lisa was comfortable with this plan. Thank you again for allowing me to participate in Lisa's care. I shall continue to keep you advised of his progress. Plan: * Treatment: 2.?Encounter for screening for malignant neoplasm of colon?Procedure: COLONOSCOPY (Ordered for 06/04/2023)* with MAC Egd and colon sched uled at [facility] on 12-08-2023 at 7:30 a.m. 3.?Family history of colon cancer?Procedure: COLONOSCOPY (Ordered for 06/04/2023)* with MAC Egd and colon sched uled at [facility] on 12-08-2023 at 7:30 a.m. 4.?Gastroesophageal reflux disease, unspecified whether esophagitis present?Procedure: UPPER GI ENDOSCOPY (Ordered for 06/04/2023)* with MAC Egd and colon sched uled at [facility] on 12-08-2023 at 7:30 a.m. * Procedure Codes:?3017F COLOR ECTAL CA SCREEN DOC PAL5838F TOBACCO NON-EMSVF0002 BP SCR NOT PRFRM REC REASON NOS * Preventive Medicine:? ??Counseling:?Care goal follow-up plan:?Above Normal BMI Follow-up?Giving encouragement to exercise,?BMI management provided?Yes.? * Follow Up:?prn * * Sign off status: Completed true * Provider:?Josué Borges MD Date:? 023 Generated for Lyndon del cid/Ramon/Maguiitting on:?11/12/2024 01:43 PM EDT History and Physical Notes * HPI (History of Present Illness) Category Sub-Category Detail Notes Category Not es incontinence I saw Lisa in followup today in regard to his chronic gastroesophageal reflux with associated Lo's esophagus, family history of colon cancer, and need for colorectal cancer screening. I last saw Lisa in February of 2022. At that time he was recuperating from his previous knee replacement with associated postoperative complications of pulmonary emboli and atrial fibrillation. He was doing well on his omeprazole in regard to his reflux as well. Since that time he reports that he has continued to feel well from a GI standpoint. He has been exercising regularly, watching his diet, and has lost at least 20 pounds intentionally since last year. He remains on one omeprazole daily with good relief of heartburn symptoms. He denies any significant heartburn, dysphagia, nausea, vomiting, early satiety, nor anorexia. His bowel movements have remained regular and without any sign of hematochezia nor melena. He denies any abdominal pain nor jaundice. He did ask me about recent reports of association between the chronic use of omeprazole and dementia. Labs on December 26 revealed a normal CBC, normal chemistries, normal TSH, and normal B12 and folate levels. He did have a slight elevation of his LFTs in December with an AST of 50 and ALT of 80, but with a total bilirubin of 1.2 and alkaline phosphatase of 56. Previous ultrasounds of his abdomen revealed a small hepatic hemangioma, but the liver otherwise appeared unremarkable. Examination Category Sub-Category Detail Notes Category Not es General Examination GENERAL APPEARANCE: pleasant , well nourished, well developed, in no acute distress EYES: sclera non-icteric NECK/THYROID: no cervical lymphade nopathy, neck supple HEART: S1, S2 normal LUNGS: clear to auscultatio n bilaterally ABDOMEN: normal bowel sounds, no guarding or rigidity, no hepatosplenomegaly, no masses palpable, soft, nontender, nondistended. NEUROLOGIC: alert and oriented SKIN: nonjaundiced, no spi grace angiomata. EXTREMITIES: no edema ORAL CAVITY: mucosa moist
--- OUTSIDE RECORDS SUMMARY | 2024-11-12 13:43 | XMS_ITS ---
Author Organization [facility] Address [address] [place] [phone] Care Team Providers Care School Program Director Name Role Phone Po Ninfa JIMENEZ Primary Care Provider Josué Guillermo [phone] Encounters Encounter Location Date Provider Diagnosis [facility] [address] [place] [phone] 06/04/2023 Josué Borges Plan Of Treatment No Information Progress Notes * FLORESITALISA BARGERDOB:1960 ( 62 yo M)Acc No.[id number]:06/04/2023 Patient:?LISA CANAS :1960???Age:62 Y???Sex:Male Address:[address] [place] [id number] * true * Date:? Generated for Pami nehemias/Ramon/eTransmitting on:?11/12/2024 01:43 PM EDT
--- OUTSIDE RECORDS SUMMARY | 2024-11-12 13:44 | XMS_ITS | Patient Health Record ---
Author Organization [facility] Address [address] [place] [phone] Care Team Providers Care Curator Of Education Name Role Phone Ninfa Pena MD Primary Care Provider Josué Guillermo Unavailable [phone] Results Component Value Reference Range Notes Pathology (Not yet reviewed by provider) Interpretation: Performing Lab:[facility], [address] [place] [phone] Notes/Report: Name: EddieLisa Age/Sex: 63/M : 1960 Unit#: [id number] Attend Dr: Josué Borges Re12/08/23 Status : [facility] Disch: SPEC : [id number] RECD : 12/08/23 STATUS: CHARU DOSS NUM: [id number] TRACY: 12/08/[address] [facility] DR: Josué Borges ENTERED: 12/08/23- 10 TYPE: Surgical OTHR DR: Ninfa Pena MD ORDERED: HE Stain/3, Gross Micro L4, Special st. 2, AB/PAS Diagnosis Gastroesophageal aki ction at 39 cm, biopsy: Lo's esophagus and mild chronic active inflammation; negati ve for dysplasia. Clinical History Pre-Op Dx: Lo's, screening Post-Op Dx: Reflux, hiatal hernia, diverticulosis, hemorrhoids Microscopic Description Microscopic sections reviewed. Material Received EG junction at 39 cm Gross Description Received in formalin labeled ?EG junction at 39 cm? are 5 mireles-pink irregular tissue fragments ranging fr om 0.15-0.3 cm, submitted in toto in a cassette labeled A. CEDS Copies To: Ninfa Pena MD [address] [place] [address] [address] [place] [address] Josué Borges [address] [place] [address] [address] [place] [address] Signed (si gnature on file) Italia Jackson MD 12/09/23 1230 END OF REPORT Reason For Referral No Information Medications Medication SIG (Take, Route, Frequency, Duration) Notes Start Date End Date Status Vitamin D Active Pravastatin Sodium 20 MG TAKE 1 TABLET B Y MOUTH AT BEDTIME Oral for 90 Active Omeprazole 20 MG TAKE 1 CAPSULE BY [facility] EVERY DAY IN THE MORNING for 90 Active dilTIAZem HCl ER Coated Beads 120 MG Oral for 90 Active Simvastatin 10mg 1 tablet in the even ing Orally Once a day Active Omeprazole 20 MG 1 capsule Orally Onc e a day for 30 04/11/2015 Active Immunizations Vaccine Route Administration Date Status Comme nts Influenza Unknown 05/07/2021 Administered Influenza Unknown 05/07/2023 Administered Influenza Unknown 05/07/2023 Administered Influenza Unknown 05/15/2023 Administered Social History Alcohol Screen Question Answer Notes [...] Negative Section Notes: Nonsmoker; no sig. alcohol Nonsmoker; no sig. alcohol Nonsmoker; no sig. alcohol Nonsmoker; no sig. alcohol Nonsmoker; no sig. alcohol Nonsmoker; no sig. alcohol Nonsmoker; no sig. alcohol Problems Problem Type SNOMED Code ICD Code Onset Dates Problem Status W/U Status Risk Notes Problem Gastro-esophageal reflux disease without esophagitis (205762961) Gastro-esophageal reflux disease without esophagitis (K21.9) Active confirmed Problem 200684376 Encounter for screening for malignant neoplasm of colon (Z12.11) Active confirmed Problem 958296902 Lo's esophagus without dysplasia (K22.70) Active confirmed Problem Diverticular disease of colon (694700845) Diverticulosis of large intestine without perforation or abscess without bleeding (K57.30) Active confirmed Problem Gastroesophageal reflux disease (571879210) Gastroesophageal reflux disease (K21.9) Active confirmed Problem 061176505 Elevated liver function tests (R79.89) Active confirmed Problem 957520357 Barretts esophag us without dysplasia (K22.70) Active confirmed Problem 107680883 Family history o f colon cancer (Z80.0) Active confirmed Problem Benign neoplasm of stomach (68034276) Gastric polyps (K31.7) Active confirmed Problem 88811279592968486 Abnormal liver ultrasound (R93.2) Active confirmed Problem Lo esophagus (338896123) Lo esophagus (K22.70) Active confirmed Problem 248505017 Abdominal discomfort, epigastric (R10.13) Active confirmed Problem Lo's esophagus (353256071) Lo''s esophagus without dysplasia (K22.70) Active confirmed Problem 838549708 Gastroesophageal reflux disease, unspecified whether esophagitis present (K21.9) Active confirmed Encounters Encounter Location Date Provider Diagnosis [facility] [place] [address] [place] [phone] 12/08/2023 Josué Borges Encounter for scre ening colonoscopy Z12.11 ; Family history of colon cancer Z80.0 ; Diverticulosis of large intestine without perforation or abscess without bleeding K57.30 ; Internal hemorrhoids K64.8 ; Lo''s esophagus without dysplasia K22.70 ; Gastro-esophageal reflux [...] 12/08/2023 Internal hemorrhoids (ICD-10 - K64.8) 12/08/2023 Lo''s esophagus without dysplasia (ICD-10 - K22.70) 12/08/2023 Gastro-esophageal reflux disease without esophagitis (ICD-10 - K21.9) 12/08/2023 Hiatal hernia (ICD-10 - K44.9) 12/08/2023 Gastric polyps (ICD-10 - K31.7) Plan Of Treatment Pending Test Test Name Order Date US ABD 05/29/2021 US ABD 11/07/2021 Pathology 12/08/2023 Future Test Test Name Order Date UPPER GI ENDOSCOPY [place]ON DILATION OF ESOPH 08/18/2014 UPPER GI ENDOSCOPY 12/11/2017 COLONOSCOPY 12/11/2017 UPPER GI ENDOSCOPY 05/29/2021 UPPER GI ENDOSCOPY 06/04/2023 COLONOSCOPY 06/04/2023 Insurance Providers Payer Name Payer Address Payer Phone Subscriber Number Group Number Insured Name Patient Relationship to Insured Coverage Start Date Coverage End Date [facility] [address] [place] [phone] [id number] LISA CANAS Self - patient is the insured Medical (General) History Medical History History ICD Code Screening Colonoscopies in 2007, April of 2013, and 12/2017 have all been negative for any polyps Hyperlipidemia History of SVT Denies NC,DM,CVA,Lung disease,renal dise ase EGD 09-02-2014--this was done for the evaluation of intermittent dysphagia--this revealed a small hiatal hernia, duodenitis, changes of GERD, and a question of a distal esophageal ring-this was dilated from a 16 mm to 18 mm balloon--biopsies from the gastroesophageal junction revealed small areas of Lo's mucosa which were negative for dysplasia, and gastric biopsies were negative for H. pylori--he was started on omeprazole at that time Lo's esophagus-upper en doscopy in December of 2017 revealed a known small hiatal hernia and small area of Lo's esophagus, with biopsies negative for dysplasia. There was no esophagitis. EGD 06/2021 revealed his kno wn small hiatal hernia and small area of Lo's esophagus. Biopsies were again negative for dysplasia and there was no esophagitis. Developed Afib/pulmonary emb olism in 01/2022-in relation to a LKR in 11/2021-sees Dr. Fernando Hepatic hemangioma seen on a n ultrasound in 2020 and was unchanged in January of 2022 He underwent a cardiac ablat ion in November of [address] Christopher and is followed for his atrial fibrillation and SVT by Dr. Fernando. As of the May 2023 office visit he was not on any anticoagulation. He was started back on his diltiazem however. Surgical History Surgery Date(Month/Year) Umbilical hernia repair as a child Left knee arthroscopy x 2 Left knee replacement in November of 2021--complicated by atrial fibrillation and a pulmonary embolus in January of 2022
--- OUTSIDE RECORDS SUMMARY | 2024-11-12 13:44 | XMS_ITS ---
Author Organization [facility] Address [address] [place] [phone] Care Team Providers Care Environmental Sampler Name Role Phone Po Ninfa JIMENEZ Primary Care Provider Josué Guillermo [phone] REASON FOR VISIT screening, gerd, thurston's Problems Problem Type SNOMED Code ICD Code Onset Dates Problem Status W/U Status Risk Notes Problem Diverticulosis o f large intestine without perforation or abscess without bleeding (K57.30) Active confirmed Problem Thurston's esophagus (627123971) Thurston''s esophagus without dysplasia (K22.70) Active confirmed Problem Gastro-esophage al reflux disease without esophagitis (456845161) Gastro-esophageal reflux disease without esophagitis (K21.9) Active confirmed Problem Benign neoplasm of stomach (09392498) Gastric polyps (K31.7) Active confirmed Encounters Encounter Location Date Provider Diagnosis [facility] [address] [place] [phone] 12/08/2023 Josué Borges Encounter for scre ening [...] Of Treatment No Information Progress Notes * FLORESITA LISADOB:1960 ( 64 yo M)Acc No.[id number]:12/08/2023 EGD and COL/MAC Patient:?FLORESITA LISA Provider:?Josué Borges MD :1960???Age:63 Y???Sex:Male Agustin e:12/08/2023 Address:[address] [place] [address] Pcp:Ninfa Pena MD Subjective: * Chief Complaints: * ???1. Screening, gerd, barre tt's. * Medical History:? Objective: * Vitals:? Assessment: * Assessment: 1.?Encounter for screening c olonoscopy - Z12.11 (Primary)???2.?Family history of colon cancer - Z80.0???3.?Diverticulosis of large intestine without perforation or abscess without bleeding - K57.30???4.?Internal hemorrhoids - K64.8 ??5.?Thurston''s esophagus without dysplasia - K22.70???6.?Gastro-esophageal reflux disease without esophagitis - K21.9???7.?Hiatal hernia - K44.9???8.?Gastric polyps - K31.7??? Plan: * Treatment: * Procedure Codes:?84125 DIAGN OSTIC COLONOSCOPY, 40493 UPPER GI ENDOSCOPY, BIOPSY * * The named appointment provid er may or may not be the originator of this progress note, and it is not deemed complete until electronically signed by the appointment provider. Sign off status: Pending * Provider:?Josué Borges MD Date:? 024 Generated for Lyndon del cid/Ramon/Chanell on:?11/12/2024 01:44 PM EDT
== END 2024-11-12 14:33 | disposition home or self-care (01) ==
LOC: HO.HMCH 13:39
PROVIDERS: PCP Internal Medicine; Visit Provider Internal Medicine
DX: Z00.00 Encounter for general adult medical examination without abnormal findings (principal); I48.0 Paroxysmal atrial fibrillation; E78.00 Pure hypercholesterolemia, unspecified; E66.3 Overweight; I47.10 Supraventricular tachycardia, unspecified; K22.70 Barrett's esophagus without dysplasia; Z23 Encounter for immunization

== ENCOUNTER → 2024-11-12 13:38 | Outpatient (BNVA) | payer OTHER, SELFPAY | PROVIDERS: PCP Internal Medicine; Visit Provider Internal Medicine | DX: Z00.00 Encounter for general adult medical examination without abnormal findings (principal); Z23 Encounter for immunization; I48.0 Paroxysmal atrial fibrillation; E78.00 Pure hypercholesterolemia, unspecified; E66.3 Overweight; I47.10 Supraventricular tachycardia, unspecified; K22.70 Barrett's esophagus without dysplasia | CPT/HCPCS: 90471; 90714; 96127 ==

== ENCOUNTER 2025-04-25 14:26 | Outpatient (REF) | payer OTHER, SELFPAY ==
[2025-04-25 15:27] LABS: MANUAL DIFF FLAG NO
[2025-04-25 15:50] LABS: Red Blood Count 4.95 X10*6/uL (4.60-5.80); White Blood Count 6.0 X10*3/uL (4.8-10.8)
[2025-04-25 15:51] LABS: Hematocrit 45.2 % (42.0-52.0); Hemoglobin 15.0 g/dl (14.0-18.0); Imm Gran Abs Auto 0.02 X10*3/uL (0.00-0.03); Imm Gran Pct Auto 0.3 % (0.0-0.4); Lymphocytes Absolute Auto 2.3 X10*3/uL (1.2-4.9); Mean Corpuscular HGB Conc 33.2 g/dl (31.0-36.0); Mean Corpuscular Hemoglobin 30.3 pg (27.0-33.0); Mean Corpuscular Volume 91.3 fL (80.0-98.0); NRBC Abs Auto 0.000 X10*3/uL (0.0-0.012); NRBC Pct Auto 0.0 /100WBC (0.0-0.2); Platelet Count 180 X10*3/uL (160-400)
[2025-04-25 16:47] LABS: Alanine Aminotransferase 28 U/L (0-40); Albumin Level 4.3 g/dL (3.5-5.0); Alkaline Phosphatase 50 U/L (39-117); Anion Gap 10 (12-20); Aspartate Amino Transferase 24 U/L (5-37); Blood Urea Nitrogen 20 mg/dL (9-16); Calcium 9.5 mg/dL (8.4-10.2); Carbon Dioxide 29 mmol/L (22-29); Chloride 106 mmol/L (96-108); Estimated Glomerular Filt Rate > 60; Magnesium 2.1 mg/dL (1.6-2.6); Potassium 4.1 mmol/L (3.3-5.1); Sodium 141 mmol/L (135-145); Total Protein 7.0 g/dL (6.5-8.0)
[2025-04-25 16:51] LABS: Free T4 (Free Thyroxine) 1.08 ng/dL (0.71-1.85); Thyroid Stimulating Hormone 0.73 uIU/mL (0.32-4.0)
[2025-04-25 17:26] LABS: Folate 6.4 ng/mL (> or = 4.0); Vitamin B12 586 pg/mL (200-900)
== END 2025-04-25 14:27 | disposition home or self-care (01) ==
LOC: HO.LAB 14:26
PROVIDERS: PCP Internal Medicine; Visit Provider Internal Medicine
DX: I48.0 Paroxysmal atrial fibrillation (principal); E78.00 Pure hypercholesterolemia, unspecified; R73.01 Impaired fasting glucose; R20.0 Anesthesia of skin; R20.2 Paresthesia of skin
CPT/HCPCS: 36415; 80053; 82607; 82746; 83036; 83735; 84439; 84443; 85025; 96127

== ENCOUNTER 2025-04-25 14:26 | Outpatient (AMB) | payer OTHER, SELFPAY ==
--- OUTSIDE RECORDS SUMMARY | 2023-12-08 03:30 | XMS_ITS ---
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 Operator Name Role Phone Po Ninfa JIMENEZ Primary Care Provider Josué Guillermo [phone] REASON FOR VISIT screening, gerd, thurston's Problems Problem Type SNOMED Code ICD Code Onset Dates Problem Status W/U Status Risk Notes Problem Diverticular disease of colon (096602432) Diverticulosis of large intestine without perforation or abscess without bleeding (K57.30) Active confirmed Problem Thurston's esophagus (054544825) Thurston''s esophagus without dysplasia (K22.70) Active confirmed Problem Gastro-esophagea l reflux disease without esophagitis (233988479) Gastro-esophageal reflux disease without esophagitis (K21.9) Active confirmed Problem Benign neoplasm of stomach (31183703) Gastric polyps (K31.7) Active confirmed Encounters Encounter Location Date Provider Diagnosis [facility] [address], [place] [phone] 12/08/2023 Josué Borges Encounter for scre ening [...] * LISA CANASDOB:1960 ( 64 yo M)Acc No.[id number]:12/08/2023 EGD and COL/MAC Patient: LISA MADRIGAL Provider: Edvin Borges MD :1960 A ge:63 Y S ex:Male Date:12/08/2023 Address:[address] [place] [address] Pcp:Ninfa Pena MD Subjective: * Chief Complaints: * 1 . Screening, gerd, thurston's. * Medical History: Objective: * Vitals: Assessment: * Assessment: 1. E ncounter for [...] G astric polyps - K31.7 Plan: * Treatment: * Procedure Codes: 4 5378 DIAGNOSTIC COLONOSCOPY, 65418 UPPER GI ENDOSCOPY, BIOPSY * * The named appointment provid er may or may not be the originator of this progress note, and it is not deemed complete until electronically signed by the appointment provider. Sign off status: Pending * Provider: Edvin Borges MD Date: 0 12/08/2023 Generated for Lyndon del cid/Ramon/Chanell on: 1 06:11 PM EDT
[2025-04-25 14:38] VITALS: BP 112/74; PULSE 66; TEMP 36.3; O2SAT 95; BMI 29.5
--- NOTE | 2025-04-25 14:38 | A.OFFPC_ITS ---
Vital Signs 04/25/25 14:38 Height 6 ft Weight 217 lb 4 oz BMI 29.5 BP 112/74 Blood Pressure Location Lt brachial Position Sitting Pulse 66 Pulse Source Pulse Oximeter Temp 97.4 F Temp Source Temporal Artery Scan Pulse Oximetry (%) 95 Oxygen Delivery Method Room Air Intake Visit Reasons: Toes are numb Allergies No Known Allergies Allergy (Verified 04/25/25 14:40) Tobacco use date assessed: 04/25/25 Dental Screening Dental Screen Date: 04/25/25 Did you have a dental visit in the last 12 months?: Yes Did you have a dental problem in the last 6 months where you did not have access to dental care?: No Was dental information given to patient?: Patient has dentist [facility] Medical History Paroxysmal atrial fibrillation Afib Pulmonary embolism Palpitations Obesity (BMI 30-39.9) Hypercholesterolemia Anxiety GERD (gastroesophageal reflux disease) Barretts esophagus Surgical History H/O heart surgery History of knee replacement procedure of left knee History of esophagogastroduodenoscopy (EGD) Hx of colonoscopy History of arthroscopy of left knee History of eye surgery History of umbilical hernia repair Family History Father No problems noted. Mother Colon cancer Sister Leukemia Brother Stomach cancer Social History Household Members: Spouse Housing: House Do you presently have visiting nurse or other home services: No Alcohol intake: current Alcohol intake frequency: holidays/special occasions only Alcohol type: wine Comment: 2-3 drinks /month at one time Patient Tobacco Use Status: Never used Tobacco e-Cigarette/Vaping Use: Never Used Second Hand Smoke Exposure: No service: No Current occupational status: employed Cognitive needs: No Hearing needs: No Vision needs: No Questionnaire PHQ-9 Over the last 2 weeks, how often have you been bothered by any of the following problems? 1. Little interest or pleasure in doing things: not at all 2. Feeling down, depressed, or hopeless: not at all 3. Trouble falling or staying asleep, or sleeping too much: not at all 4. Feeling tired or having little energy: not at all 5. Poor appetite or overeating: not at all 6. Feeling bad about yourself - or that you are a failure or have let yourself or your family down: not at all 7. Trouble concentrating on things, such as reading the newspaper or watching television: not at all 8. Moving or speaking so slowly that other people could have noticed. Or the o pposite - being so fidgety or restless that you have been moving around a lot more than usual: not at all 9. Thoughts that you would be better off or of hurting yourself in some way: not at all Total score: 0 Depression Screening Interpretation: Negative Depression Screening Done: Yes Source: Developed by Drs. Josué Juan, Marylou Aguero, David Fierro and colleagues, with an educational jonathon from [employer]. Thrive Questionnaire Date Thrive assessed: 11/05/24 I am a: Patient What is your living situation today?: I have a steady place to live Within the past 12 months, did the food you bought not last and you didn't have the money to get more?: I choose not to answer this question Within the past 12 months, did you worry whether your food would run out before you got money to buy more?: I choose not to answer this question Do you have trouble paying for medicines?: I choose not to answer this question Do you have trouble getting transportation to medical appointments?: I choose not to answer this question Do you have trouble paying your heating and electricity bill?: I choose not to answer this question Do you have trouble taking care of your child, family member or friend?: I choose not to answer this question Do you have trouble with day-to-day activities such as bathing, preparing meals, shopping, managing finances, etc.?: I choose not to answer this question Are you currently unemployed and looking for a job?: I choose not to answer this question Are you interested in more education?: I choose not to answer this question Please select the resources that you would like help with: None Currently or been in a relationship where the following occur: I choose not to answer THRIVE Score: 0 AUDIT C Alcohol Use Questionnaire (AUDIT-C) 1. How often do you have a drink containing alcohol?: Monthly or less 2. How many drinks containing alcohol do you have on a typical day when you are drinking?: 1 or 2 3. How often do you have six or more drinks on one occasion?: Never Total Score: 1 EDGAR-7 AMB Questionnaire EDGAR-7 Date EDGAR - 7 assessed: 11/12/24 Feeling nervous, anxious, or on edge: 0 = Not at all Not being able to stop or control worryin = Not at all Worrying too much about different things: 0 = Not at all Trouble relaxin = Not at all Being so restless that it is hard to sit still: 0 = Not at all Becoming easily annoyed or irritable: 0 = Not at all Feeling afraid as if something awful might happen: 0 = Not at all Total EDGAR-7 score (0-4 normal; 5-9 mild; 10-14 moderate; 15-21 severe): 0 Source: Developed by Drs. Josué Juan, Marylou Aguero, David Fierro and colleagues, with an educational jonathon from [employer]. Physical exam (Primary Care) Vital Signs: Last Vital Signs Temp 97.4 F 04/25/25 14:38 Pulse 66 04/25/25 14:38 BP 112/74 04/25/25 14:38 Pulse Ox 95 04/25/25 14:38 Oxygen Delivery Method Room Air 04/25/25 14:38 BMI result Body Mass Index 29.5 Tobacco/Smoking Status: Tobacco use Status Tobacco use date assessed 04/25/25 04/25/25 14:42 Patient Tobacco Use Status Never used Tobacco 04/25/25 14:42 e-Cigarette/Vaping Use Never Used 04/25/25 14:42 PHQ-9: PHQ-9 Score PHQ-9: Total score 0 04/25/25 14:56 Depression Screening Interpretation: Negative Thrive Assessment: Date of Thrive Assessment Date Thrive assessed 11/05/24 04/25/25 14:42 Currently or been in a relationship where the following occur: I choose not to answer Const General: alert; No acute distress Eyes Conjunctivae: conjunctivae normal Resp Auscultation: clear to auscultation bilaterally Cardio Rate: regular rate Rhythm: regular rhythm GI Inspection: Yes normal to inspection Extrem General: Yes normal to inspection and No edema Coding Level of Care Code Est Pt Level 4 (46932) Diagnoses Paroxysmal atrial fibrillation I48.0 Hypercholesterolemia E78.00 Impaired fasting blood sugar R73.01 Numbness and tingling of both feet R20.0; R20.2 Assessment & Plan Assessment & Plan (1) Paroxysmal atrial fibrillation: Comment: September 2022 pulmonary vein isolation and ablation Code(s): I48.0 - Paroxysmal atrial fibrillation Category: Medical Plan: Patient is on diltiazem 120 mg once a day (2) Hypercholesterolemia: Code(s): E78.00 - Pure hypercholesterolemia, unspecified Category: Medical Plan: Patient on pravastatin (3) Impaired fasting blood sugar: Code(s): R73.01 - Impaired fasting glucose Category: Medical Plan: Decrease the amount of carbohydrate intake, pasta, bread, rice and potatoes are all sugar and that is aside from all the sweet stuff, remember that fruits are good but they are Sweet also. (4) Numbness and tingling of both feet: Code(s): R20.0 - Anesthesia of skin; R20.2 - Paresthesia of skin Category: Medical Plan: History of Present Illness The patient is a 64-year-old male presenting with numbness in his bilateral feet. The numbness began a couple of months ago, with associated tingling and swelling, particularly affecting three toes on each foot. The patient reports that the symptoms started after a period of extensive walking during a vacation in [place]. The patient has a history of supraventricular tachycardia, pulmonary embolism, atrial fibrillation, hypercholesterolemia, and impaired glucose tolerance. He a lso has a history of Lo's esophagus and has experienced significant weight gain recently, attributed to dietary changes and vacation. Previous blood work in September 2024 showed normal blood count, electrolytes, renal function with creatinine of 1.2, and normal hemoglobin A1c. Cholesterol was recorded at 124 mg/dL, and B12 and thyroid levels were within normal limits. Health Maintenance - Colonoscopy scheduled for 2023 Social History - The patient reports recent weight gain of 19 pounds, attributed to dietary changes and vacation. - The patient has been on a keto diet previously and experienced weight fluctuations. - The patient engages in extensive walking, as noted during a recent vacation. Review of Systems - Neurological: Reports numbness and tingling in bilateral feet, particularly affecting three toes on each foot. - Musculoskeletal: Denies any recent falls or trauma to the feet. Physical Exam - Cardiovascular: Pulses are good, indicating normal circulation in both feet. Results - Labs: Normal blood count, normal electrolytes, renal function with creatinine of 1.2, normal hemoglobin A1c, cholesterol 124 mg/dL, B12 and thyroid levels within normal limits. Plan Patient was informed and verbally consented to the use of an ambient scribe for clinic note documentation during this visit. 1. Numbness In Bilateral Feet The plan includes conducting blood work to evaluate potential causes such as impaired glucose tolerance or anemia. A nerve conduction study is also planned to assess for any nerve-related issues. The patient is advised to monitor his w eight and dietary habits closely. 2. Weight Gain The patient is encouraged to maintain a balanced diet and monitor his weight regularly. Further evaluation of blood glucose levels is planned to rule out diabetes as a contributing factor. Discussion Notes I discussed with the patient the potential causes of his symptoms, including impaired glucose tolerance and nerve issues. We agreed on conducting blood work and a nerve conduction study to further investigate these possibilities. The importance of monitoring weight and dietary habits was emphasized, and the patient was advised to follow up with the results. Patient Instructions - Monitor your weight and dietary habits closely. - Follow up with blood work and nerve conduction study as discussed. - Maintain a balanced diet to manage weight gain. Orders: Orders Vitamin B12 and Folate Today R20.0 - Anesthesia of skin, R20.2 - Paresthesia of skin Magnesium Today R20.0 - Anesthesia of skin, R20.2 - Paresthesia of skin NE nerve conduction velocity Today R20.0 - Anesthesia of skin, R20.2 - Paresthesia of skin NE electromyogram (EMG) Today R20.0 - Anesthesia of skin, R20.2 - Paresthesia of skin Complete Blood Count Auto Diff Today R20.0 - Anesthesia of skin, R20.2 - Paresthesia of skin Comprehensive Met. Panel Today R20.0 - Anesthesia of skin, R20.2 - Paresthesia of skin Thyroid Stimulating Hormone Today R20.0 - Anesthesia of skin, R20.2 - Paresthesia of skin Free T4 (Free Thyroxine) Today R20.0 - Anesthesia of skin, R20.2 - Paresthesia of skin Hemoglobin A1c Today R20.0 - Anesthesia of skin, R20.2 - Paresthesia of skin
--- OUTSIDE RECORDS SUMMARY | 2025-04-25 18:11 | XMS_ITS | Patient Health Record ---
Author Organization [facility] Address [address] [place] [id number] Care Team Providers Care Paper Conservator Name Role Phone Po Ninfa JIMENEZ Primary Care Provider Josué Guillermo [phone] Reason For Referral No Information Medications Medication SIG (Take, Route, Frequency, Duration) Notes Start Date End Date Status Vitamin D Active Pravastatin Sodium 20 MG TAKE 1 TABLET B Y MOUTH AT BEDTIME Oral; Duration: 90 Active Omeprazole 20 MG TAKE 1 CAPSULE BY [facility] EVERY DAY IN THE MORNING; Duration: 90 Active dilTIAZem HCl ER Coated Beads 120 MG Oral; Duration: 90 Active Simvastatin 10mg 1 tablet in the even ing Orally Once a day Active Omeprazole 20 MG 1 capsule Orally Onc e a day; Duration: 30 04/11/2015 Active Immunizations Vaccine Route Administration [...] Notes Problem Gastro-esophageal reflux disease without esophagitis (259512656) Gastro-esophageal reflux disease without esophagitis (K21.9) Active confirmed Problem Screening for malignant neoplasm of colon (265237479) Encounter for screening for malignant neoplasm of colon (Z12.11) Active confirmed Problem Lo's esophagus (379991277) Lo's esophagus without dysplasia (K22.70) Active confirmed Problem Diverticular disease of colon (952481201) Diverticulosis of large intestine without perforation or abscess without bleeding (K57.30) Active confirmed Problem Gastroesophageal reflux disease (632585258) Gastroesophageal reflux disease (K21.9) Active confirmed Problem Elevated liver enzymes level (098666919) Elevated liver function tests (R79.89) Active confirmed Problem Lo's esophagus (620894115) Barretts esophagus without dysplasia (K22.70) Active confirmed Problem Family History of Cancer of Colon (Situation) (552791775) Family history of colon cancer (Z80.0) Active confirmed Problem Benign neoplasm of stomach (92093339) Gastric polyps (K31.7) Active confirmed Problem Abnormal findings diagnostic imaging of liver and biliary tract (320544362) Abnormal liver ultrasound (R93.2) Active confirmed Problem Lo esophagus (582064211) Lo esophagus (K22.70) Active confirmed Problem Epigastric pain (66616070) Abdominal discomfort, epigastric (R10.13) Active confirmed Problem Lo's esophagus (563266364) Lo''s esophagus without dysplasia (K22.70) Active confirmed Problem Gastroesophageal reflux disease (531945356) Gastroesophageal reflux disease, unspecified whether esophagitis present (K21.9) Active confirmed Plan Of Treatment Pending Test Test Name [...] Insured Coverage Start Date Coverage End Date [facility] [address] [place] [phone] [id number] LISA CANAS Self - patient is the insured Medical (General) History Medical History History ICD Code Screening Colonoscopies in 2007, April of 2013, and 12/2017 have all been negative for any polyps Hyperlipidemia History of SVT Denies TN,DM,CVA,Lung disease,renal dise ase EGD 09-02-2014--this was done [...] was started on omeprazole at that time Ol's esophagus-upper en doscopy in December of 2017 [...]
== END 2025-04-25 16:24 | disposition home or self-care (01) ==
LOC: HO.HMCH 14:27
PROVIDERS: PCP Internal Medicine; Visit Provider Internal Medicine
DX: I48.0 Paroxysmal atrial fibrillation (principal); E78.00 Pure hypercholesterolemia, unspecified; R73.01 Impaired fasting glucose; R20.0 Anesthesia of skin; R20.2 Paresthesia of skin

== ENCOUNTER 2025-06-06 10:58 | Outpatient (REF) | payer OTHER, SELFPAY ==
--- OUTSIDE RECORDS SUMMARY | 2023-12-08 02:30 | XMS_ITS ---
Author Organization [facility] Address [address] [place] [id number] Care Team Providers Care Patient Registration Supervisor Name Role Phone Po Ninfa JIMENEZ Primary Care Provider Josué Guillermo [phone] REASON FOR VISIT screening, gerd, thurston's Problems Problem Type SNOMED Code ICD Code Onset Dates Problem Status W/U Status Risk Notes Problem Diverticular disease of colon (302227450) Diverticulosis of large intestine without perforation or abscess without bleeding (K57.30) Active confirmed Problem Thurston's esophagus (113656923) Thurston''s esophagus without dysplasia (K22.70) Active confirmed Problem Gastro-esophagea l reflux disease without esophagitis (208114527) Gastro-esophageal reflux disease without esophagitis (K21.9) Active confirmed Problem Benign neoplasm of stomach (19955959) Gastric polyps (K31.7) Active confirmed Encounters Encounter Location Date Provider Diagnosis [facility] [place] [address], [place] [id number] 12/08/2023 Josué Borges Encounter for scre ening colonoscopy Z12.11 ; Family history of colon cancer Z80.0 ; Diverticulosis of large intestine without perforation or abscess without bleeding K57.30 ; Internal hemorrhoids K64.8 ; Thurston''s esophagus without dysplasia K22.70 ; Gastro-esophageal reflux disease without esophagitis K21.9 ; Hiatal hernia K44.9 and Gastric polyps K31.7 Assessments Encounter Date Diagnosis (ICD Code) Assessment Notes Treatment Notes Treatment Clinical Notes Section Notes 12/08/2023 Encounter for screening colonoscopy (ICD-10 - Z12.11) 12/08/2023 Family history of colon cancer (ICD-10 - Z80.0) 12/08/2023 Diverticulosis of large intestine without perforation or abscess without bleeding (ICD-10 - K57.30) 12/08/2023 Internal hemorrhoids (ICD-10 - K64.8) 12/08/2023 Thurston''s esophagus without dysplasia (ICD-10 - K22.70) 12/08/2023 Gastro-esophageal reflux disease without esophagitis (ICD-10 - K21.9) 12/08/2023 Hiatal hernia (ICD-10 - K44.9) 12/08/2023 Gastric polyps (ICD-10 - K31.7) Plan Of Treatment No Information Progress Notes * LISA CANASDOB:1960 ( 64 yo M)Acc No.[id number]:12/08/2023 EGD and COL/MAC Patient: LISA MADRIGAL Provider: Edvin Borges MD :1960 A ge:63 Y S ex:Male Date:12/08/2023 Address:[address] [place] [address] Pcp:Ninfa Pena MD Subjective: * Chief Complaints: * S creening, gerd, thurston's Assessment: * Assessment: 1. E ncounter for screening colonoscopy - Z12.11 (Primary) 2 . F amily history of colon cancer - Z80.0 3 . D iverticulosis of large intestine without perforation or abscess without bleeding - K57.30 4 . I nternal hemorrhoids - K64.8 5. B arrett''s esophagus without dysplasia - K22.70 6 . G magi-esophageal reflux disease without esophagitis - K21.9 7 . H iatal hernia - K44.9 8 . G astric polyps - K31.7 Plan: * Procedure Codes: 4 5378 DIAGNOSTIC [id number] UPPER GI ENDOSCOPY, BIOPSY Billing Information: * Procedure Codes: 43303 DIAGNOSTIC COLONOSCOPY. 86719 UPPER GI ENDOSCOPY, BIOPSY. * The named appointment provid er may or may not be the originator of this progress note, and it is not deemed complete until electronically signed by the appointment provider. Sign off status: Pending * Provider: Edvin Borges MD Date: 0 12/08/2023 Generated for Lyndon del cid/Ramon/Chanell on: 1 08/07/2024 02:23 PM EST
--- NOTE | 2025-06-06 11:00 | EMG_ITS ---
Chief complaint: Numbness in both feet Referred by:?Ninfa Pena MD Procedure done: Bilateral lower extremities NCS/EMG Bilateral tibial and peroneal motor studies were performed with F responses and tibial H reflexes. Bilateral superficial peroneal and sural sensory studies were performed. Bilateral median and lateral mixed plantars sensory studies were performed an EMG was performed. Findings: Left peroneal amplitude was markedly diminished with mild slowing of conduction velocity. Rest of the motor studies did not reveal any significant abnormality. Sural and superficial studies were okay. Mixed plantars sensory studies revealed decreased amplitude but normal conduction velocities. Left peroneal F response was absent. H reflexes were normal. Impression: 1. 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 No evidence of diffuse generalized neuropathy or radiculapathy [place] [id number] 2 extremities [facility]
== END 2025-06-06 10:59 | disposition home or self-care (01) ==
LOC: HO.NEURO 10:58
PROVIDERS: PCP Internal Medicine; Visit Provider Internal Medicine
DX: R20.0 Anesthesia of skin (principal); R20.2 Paresthesia of skin
CPT/HCPCS: 95886; 95913

== ENCOUNTER → 2025-06-06 11:00 | Outpatient (BNV) | payer OTHER, SELFPAY | PROVIDERS: PCP Internal Medicine; Visit Provider Psychiatry & Neurology Neurology | DX: R20.2 Paresthesia of skin (principal); G57.32 Lesion of lateral popliteal nerve, left lower limb; G62.89 Other specified polyneuropathies | CPT/HCPCS: 95886; 95912 ==

== ENCOUNTER → 2025-06-15 14:52 | Outpatient (REF) | payer OTHER, SELFPAY ==
--- NOTE | 2025-06-15 14:56 | CA_ITS ---
Transthoracic Echocardiogram Amended Patient (Last, First, Middle): Praful Morgan K Gender: Male Date of : 1960 Age: 64 Procedure Date: 06/15/2025 Procedure Type: Transthoracic Echocardiogram Location: OP Height: 182.88 cm Weight: 98.43 kg BSA: 2.21 m2 Heart Rate: bpm BP: 112 / 74 mmHg Scheduling Coordinator: WALKER Referring MD: Sajan Fernando MD Thread Reeler: Sajan Fernando MD Symptoms: I48.0 - Paroxysmal atrial fibrillation Study Quality: Adequate ECG Rhythm: Sinus Conclusions: - 1. Normal LV ejection fraction of 60 65% 2. Normal cardiac valvular Dopplers 3. Normal RV systolic pressure 4. Mildly dilated ascending aorta 5. No gross pericardial effusion Findings Left Ventricle Normal left ventricular size, thickness, and systolic function. The visually estimated ejection fraction is between 60-65%. Spectral Doppler is indicative of a normal filling pattern. Right Ventricle Normal right ventricular cavity size and systolic function. Atria The left atrium is mildly dilated. There is no evidence of interatrial shunt. The right atrium is mildly dilated. Aortic Valve The aortic valve structure and function is likely normal. There is no aortic valve stenosis. There is no aortic valve regurgitation. Mitral Valve Normal mitral valve structure and function. There is trace mitral valve regurgitation. There is no mitral valve stenosis. Pulmonic Valve The pulmonic valve is likely normal. There is trace pulmonic valve regurgitation. Tricuspid Valve Normal tricuspid valve structure. There is trace tricuspid valve regurgitation. The right ventricular systolic pressure is normal. Normal right atrial pressure. There is no evidence of pulmonary hypertension. Great Vessels The pulmonary artery was not well visualized. There is mild dilatation of the ascending aorta measuring 4.10 cm. Venous The inferior vena cava is normal in size and collapses greater than 50% with inspiration. Pericardium/Pleural There is no evidence of pericardial effusion. Prior Study Comparison Changes noted compared to prior study dated: 01/15/2022. ascending aorta is mildly dilated on this study Measurements 2D Linear Measurements IVSd: 0.99 0.6-0.9/0.6-1.0 cm LVIDd: 4.66 3.9-5.3/4.2-5.9 cm LVIDd Index: 2.11 2.4-3.2/2.2-3.1 cm/m2 LVIDs: 3.18 2.0-3.6 cm LVPWd: 0.96 0.7-1.1 cm LA Diam: 3.80 2.7-3.8/3.0-4.0 cm LAIDs Index: 1.72 1.5-2.3 cm/m2 LV Mass: 225.97 67-162/88-224 g LV Mass Index: 102.25 43-95/49-115 g/m2 LVOT Diam: 2.70 3.0+(-)1.3 cm 2D Volumes LA Vol: 38.40 2D Systolic Function EF 4C: 62.80 >55% EF 2C: 61.80 >55% EF BiP: 62.50 >55% Mitral Valve MV Pk E: 0.66 MV PK A: 0.51 MV Decel Time: 291.00 E/A: 1.30 E'Lateral: 13.10 E'Medial: 7.18 E/E' Med: 9.20 E/E' Lat: 5.10 PHT: 85.00 MVA PHT: 2.59 Decel Coal: 2.28 Aortic Valve AoV Pk Nikunj: 1.34 AoV Mn Nikunj: 0.90 AoV VTI: 0.28 AoV Pk Grad: 7.00 Aov Mn Grad: 4.00 ALEYDA Cont.VTI: 4.72 LVOT LVOT Pk Nikunj: 1.08 LVOT Mn Nikunj: 0.73 LVOT VTI: 0.23 LVOT Pk Grad: 5.00 LVOT Mn Grad: 2.00 LVOT Diam: 2.70 LVOT Area: 5.73 Diastolic Function MV Pk E: 0.66 MV Pk A: 0.51 E/A: 1.30 E'Medial: 7.18 E/E' Med: 9.20 E' Laterial: 13.10 E/E' Lat: 5.10 Right Ventricle TAPSE (mm): 23.90 TVS' Nikunj: 11.10 Tricuspid Valve TR Pk Nikunj: 2.27 TR Pk Grad: 21.00 RA Press: 3.00 RVSP: 24.00 Great Vessels Aorta Sinus of Valsalva: 4.00 2.0-3.[address] Ridge: 3.33 1.7-3.4 cm Ao Asc: 4.10 2.1-3.4 cm Ao Arch: 3.50 Pulmonary Veins Pulm Vein S/D 1.30 Updated in Other Vendor System with Status of Final Sajan Fernando MD electronically signed on 06/16/2025 2:20:31 PM with status of Final
== END ==
LOC: HO.CARD 14:52
PROVIDERS: PCP Internal Medicine; Visit Provider Internal Medicine Cardiovascular Disease
DX: I48.0 Paroxysmal atrial fibrillation (principal)
CPT/HCPCS: 93306

== ENCOUNTER → 2025-06-15 14:56 | Outpatient (BNV) | payer OTHER, SELFPAY | PROVIDERS: PCP Internal Medicine; Visit Provider Internal Medicine Cardiovascular Disease | DX: I48.0 Paroxysmal atrial fibrillation (principal); I77.810 Thoracic aortic ectasia | CPT/HCPCS: 93306 ==

== ENCOUNTER 2025-06-23 14:44 | Outpatient (AMB) | payer OTHER, SELFPAY ==
--- NOTE | 2025-06-23 14:48 | MHC.OFFVIS ---
Vital Signs 06/23/25 14:49 Height 6 ft Weight 218 lb 4.122 oz BMI 29.6 BP 110/66 Blood Pressure Location Lt brachial Position Sitting Pulse 67 Intake Visit Reasons: 1 yr f/up Intake Note: 1 year follow-up with ekg feeling good still has SVT but they are short and he can break them Associate Engineer Required: No Allergies No Known Allergies Allergy (Verified 04/25/25 14:40) Medication List - Last Reconciled 06/23/25 by Sajan Fernando MD cholecalciferol (vitamin D3) (Vitamin D3) 25 mcg PO BEDTIME diltiazem HCl CD 120 mg PO DAILY magnesium 200 mg PO DAILY omeprazole 20 mg PO DAILY PRN pravastatin 20 mg PO BEDTIME 90 days vitamin B complex 1 tab PO DAILY HPI Comments Details: Praful comes for follow-up after 1 year. Since summer he has had multiple episodes of SVT, happening about once a month. He said these symptoms are clearly without any triggers but couple of times maybe related to excitement. His heart rate has been in 170s, however last episode at her daughter's house was in the 190s like before. He has been able to control most of his episodes with vagal maneuvers and symptoms last for about couple of minutes. However the last episode Cop[place]'s at a football game and could not have access to ice and his symptoms lasted for about 40 minutes. However he said he has been able to tolerate this episodes has not had to go to emergency room. Most recent echocardiogram also showed mild enlargement of his ascending aorta. His last LDL was 124 mg/dL [facility] Medical History Paroxysmal atrial fibrillation Afib Pulmonary embolism Palpitations Obesity (BMI 30-39.9) Hypercholesterolemia Anxiety GERD (gastroesophageal reflux disease) Barretts esophagus Surgical History H/O heart surgery History of knee replacement procedure of left knee History of esophagogastroduodenoscopy (EGD) Hx of colonoscopy History of arthroscopy of left knee History of eye surgery History of umbilical hernia repair Family History Father No problems noted. Mother Colon cancer Sister Leukemia Brother Stomach cancer Social History Household Members: Spouse Housing: House Do you presently have visiting nurse or other home services: No Alcohol intake: current Alcohol intake frequency: holidays/special occasions only Alcohol type: wine Comment: 2-3 drinks /month at one time Patient Tobacco Use Status: Never used Tobacco e-Cigarette/Vaping Use: Never Used Second Hand Smoke Exposure: No service: No Current occupational status: employed Cognitive needs: No Hearing needs: No Vision needs: No Review of Systems Const Denies chills, Denies fatigue, Denies fever(s), Denies frequent falls, Denies weakness, Denies weight gain and Denies weight loss ENT Denies dizziness Card Denies chest pain, Denies leg edema, Denies lightheadedness, Denies palpitations, Denies dyspnea, Denies dyspnea on exertion, Denies orthopnea and Denies other (loss of consciousness) Resp Denies cough, Denies dyspnea and Denies dyspnea on exertion GI Denies hematochezia and Denies change in stool character Musc Denies abnormal gait, Denies muscle weakness, Denies numbness, Denies radiating pain into limb and Denies tingling Neuro Denies abnormal gait, Denies dizziness, Denies frequent falls, Denies numbness, Denies tingling and Denies weakness Endo Denies fatigue and Denies palpitations Physical Exam Vital Signs: Last Vital Signs Pulse 67 06/23/25 14:49 BP 110/66 06/23/25 14:49 BMI result Body Mass Index 29.6 Const General: cooperative, comfortable, alert, awake, anxious and well groomed Nutritional Appearance: overweight Orientation/consciousness: patient oriented x3 Limitations: no limitations Neck Neck: Yes trachea midline, Yes supple and Yes no JVD Resp Effort & Inspection: normal respiratory effort Auscultation: clear to auscultation bilaterally Cardio Jugular venous distension: no JVD Rate: regular rate Rhythm: regular rhythm Heart sounds: S1 normal heart sound present, S2 normal heart sound present, no click, no gallops and no murmurs GI Auscultation: normal bowel sounds Skin General skin exam: no rashes or lesions noted Neuro General: patient oriented x3 and no focal motor deficits Extrem General: Yes no clubbing, cyanosis or edema Office Procedures EKG Details: EKGs shows normal sinus rhythm with left axis deviation with incomplete right bundle-branch block and Q-waves in lead 3 most likely due to body habitus 50480-[id number], Complete Assessment & Plan Assessment & Plan (1) SVT (supraventricular tachycardia): Code(s): I47.1 - Supraventricular tachycardia Category: Medical Plan: Patient with recurrent SVT episode happening about once a month without any obvious triggers, usually easily controllable by vagal maneuvers then before. He has not had to go to the emergency room for the same. We discussed about management and pathophysiology. For now will increase his Cardizem to 180 mg daily. We rediscussed vagal maneuvers. If he continues to have significantly increasing burden will consider repeat consultation for ablation. (2) Paroxysmal atrial fibrillation: Comment: September 2022 pulmonary vein isolation and ablation Code(s): I48.0 - Paroxysmal atrial fibrillation Category: Medical Plan: Paroxysmal atrial fibrillation status post ablation with no clinical recurrence at this point time. Continue Cardizem therapy. Avoidance of stimulants was discussed. No indication for oral anticoagulation therapy at this point in time. (3) Ascending aorta enlargement: Code(s): I77.89 - Other specified disorders of arteries and arterioles Category: Medical Plan: Mildly enlarged thoracic aorta without any obvious symptoms. Most likely causes atherosclerotic. At this point time I would continue with Cardizem therapy. We discussed about management and would intensify his lipid management. Follow-up lipid panel in 2 months time. Potential side effects with lipid therapy were discussed. It does not require any surgical intervention at this point time but will require follow up in 1 year's time. Follow up in the clinic in 1 year's time, sooner PRN. Thank you for allowing me to partake in his care Orders: Orders Lipid Panel 2 Months I77.89 - Other specified disorders of arteries and arterioles CA echo transthoracic complete 50 Weeks I77.89 - Other specified disorders of arteries and arterioles Medications: New diltiazem HCl CD (Cardizem CD) 180 mg PO DAILY 90 caps 2RF rosuvastatin 20 mg PO DAILY 90 tabs 1RF Discontinued diltiazem HCl CD Discontinued Reason: Doctor's Order 120 mg PO DAILY 90 caps 3RF pravastatin Discontinued Reason: Doctor's Order 20 mg PO BEDTIME 90 days 90 tabs 1RF Coding Level of Care Code Est Pt Level 4 (69078) Diagnoses SVT (supraventricular tachycardia) I47.1 Paroxysmal atrial fibrillation I48.0 Ascending aorta enlargement I77.89 CPT Codes EKG - CPT: 40601-Qjjzrvphqdecrxzpv, Complete ([id number])
[2025-06-23 14:49] VITALS: BP 110/66; PULSE 67; BMI 29.6
--- OUTSIDE RECORDS SUMMARY | 2025-06-23 18:52 | XMS_ITS | Patient Health Record ---
Author Organization [facility] Address [address] [place] [id number] Care Team Providers Care Media Analytics Manager Name Role Phone Po Ninfa JIMENEZ Primary Care Provider Josué Guillermo [phone] Reason For Referral No Information Medications Medication SIG (Take, Route, Frequency, Duration) Notes Start Date End Date Status Vitamin D Active Pravastatin Sodium 20 MG Tablet TAKE 1 TABLET BY MOUTH AT BEDTIME Oral; Duration: 90 Active Omeprazole 20 MG Capsule Delayed Release TAKE 1 CAPSULE BY MOUTH EVERY DAY IN THE MORNING; Duration: 90 Active dilTIAZem HCl ER Coated Beads 120 MG Capsule Extended Release 24 Hour Oral; Duration: 90 Active Simvastatin 10mg 1 tablet in the even ing Orally Once a day Active Omeprazole 20 MG Tablet Delayed Release 1 capsule Orally Once a day; Duration: 30 04/11/2015 Active Immunizations Vaccine Route Administration Date Status Comme nts Influenza Unknown 05/07/2021 Administered Influenza Unknown 05/07/2023 Administered Influenza Unknown 05/07/2023 Administered Influenza Unknown 05/15/2023 Administered Social History Social History Drugs/Alcohol: Social Info Question Answer Notes Alcohol Screen Did you have a drink containing alcohol in the past year? Yes How often did you have a drink containing alcohol in the past year? 2 to 4 times a month (2 points) How many drinks did you have on a typical day when you were drinking in the past year? 1 or 2 drinks (0 point) How often did you have 6 or more drinks on one occasion in the past year? 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 alcohol Nonsmoker; no sig. alcohol Nonsmoker; no sig. alcohol Nonsmoker; no sig. alcohol Nonsmoker; no sig. alcohol Nonsmoker; no sig. alcohol Nonsmoker; no sig. alcohol Problems Problem Type SNOMED Code ICD Code Onset Dates Problem Status W/U Status Risk Notes Problem Gastro-esophageal reflux disease without esophagitis (201977857) Gastro-esophageal reflux disease without esophagitis (K21.9) Active confirmed Problem Screening for malignant neoplasm of colon (486461145) Encounter for screening for malignant neoplasm of colon (Z12.11) Active confirmed Problem Lo's esophagus (716701947) Lo's esophagus without dysplasia (K22.70) Active confirmed Problem Diverticular disease of colon (241067174) Diverticulosis of large intestine without perforation or abscess without bleeding (K57.30) Active confirmed Problem Gastroesophageal reflux disease (593984678) Gastroesophageal reflux disease (K21.9) Active confirmed Problem Elevated liver enzymes level (012117890) Elevated liver function tests (R79.89) Active confirmed Problem Lo's esophagus (379976316) Barretts esophagus without dysplasia (K22.70) Active confirmed Problem Family History of Cancer of Colon (Situation) (794125930) Family history of colon cancer (Z80.0) Active confirmed Problem Benign neoplasm of stomach (37051106) Gastric polyps (K31.7) Active confirmed Problem Abnormal findings diagnostic imaging of liver and biliary tract (096638023) Abnormal liver ultrasound (R93.2) Active confirmed Problem Lo esophagus (882906165) Lo esophagus (K22.70) Active confirmed Problem Epigastric pain (83301360) Abdominal discomfort, epigastric (R10.13) Active confirmed Problem Lo's esophagus (941315988) Lo''s esophagus without dysplasia (K22.70) Active confirmed Problem Gastroesophageal reflux disease (824027134) Gastroesophageal reflux disease, unspecified whether esophagitis present [...] Insured Coverage Start Date Coverage End Date [facility] [address] [place] [phone] [id number] LISA CANAS Self - patient is the insured Medical (General) History Medical History History ICD Code Screening Colonoscopies in 2007, April of 2013, and 12/2017 have all been negative for any polyps Hyperlipidemia History of SVT Denies CT,DM,CVA,Lung disease,renal dise ase EGD 09-02-2014--this was done [...]
== END 2025-06-23 15:49 | disposition home or self-care (01) ==
LOC: HO.HCS 14:45
PROVIDERS: PCP Internal Medicine; Visit Provider Internal Medicine Cardiovascular Disease
DX: I47.10 Supraventricular tachycardia, unspecified (principal); I48.0 Paroxysmal atrial fibrillation; I77.89 Other specified disorders of arteries and arterioles
CPT/HCPCS: 93010; 99214

== ENCOUNTER → 2025-06-23 14:44 | Outpatient (BNVA) | payer OTHER, SELFPAY | PROVIDERS: PCP Internal Medicine; Visit Provider Internal Medicine Cardiovascular Disease | DX: I47.10 Supraventricular tachycardia, unspecified (principal); I48.0 Paroxysmal atrial fibrillation; I77.89 Other specified disorders of arteries and arterioles; Z79.899 Other long term (current) drug therapy | CPT/HCPCS: 93005 ==